=== PATIENT | female | born 1930 | race Caucasian/White ===

== ENCOUNTER 2017-03-27 09:34 | Inpatient (IN) | payer BC, MEDICARE ==
[~2017-03-27] VITALS: Ht 162.6 cm; Wt 77.0 kg
[~2017-03-27 09:34] MED LIST: ATOR10TA23; HYDR5TAB; LEVO25TA50; METOPROLOL 5 MG INJ ONE
[2017-03-27 09:41] VITALS: Ht 162.6 cm; Wt 77.0 kg
[2017-03-27] MEDS ORDERED: SOD CHLORIDE 0.9% 500 ML IV STA (09:41)
[2017-03-27] MEDS ORDERED: ONDANSETRON 4 MG INJ IV STA ×2 (09:41→11:58)
--- NOTE | 2017-03-27 09:44 | ERD ---
ER Documentation Chief Complaint Chief Complaint woke up with nausea/vomiting , runny nose today HPI This is an 86-year-old female with a past medical history of hypertension, hyperlipidemia, hypothyroidism who woke up this morning with nausea and a few episodes of nonbilious nonbloody vomiting. The patient also reports feeling fatigued with myalgias, congestion and a runny nose. The patient states that she woke up this morning feeling okay. She took her metoprolol without drinking any water, after which her symptoms started. She is not sure if it could be related to the metoprolol or not, but this is what she associates it with. The patient does feel a little dehydrated as well. The patient has had no headache or vision changes. The patient does not endorse neck or back pain. The patient denies lightheadedness or dizziness. The patient has had no chest pain or shortness of breath or trouble breathing. The patient denies nausea or vomiting. The patient denies abdominal pain or changes to bowel movements or urination. The patient has had no focal deficits. The patient has had no weakness or numbness or tingling to the face or extremities. ROS All systems reviewed and are negative except as per history of present illness. Medications Home Meds Reported Medications Losartan-Hydrochlorothiazide (Losartan-HCTZ) 100-25 Mg Tab, 1 TAB PO DAILY, TAB 03/27/17 Atorvastatin Calcium* (Atorvastatin Calcium*) 20 Mg Tablet, 20 MG PO QHS, #30 TAB 03/27/17 Pantoprazole* (Pantoprazole*) 40 Mg Tablet.dr, 40 MG PO AC BREAKFAST, TAB 03/27/17 Levothyroxine Sodium* (Levothyroxine Sodium*) 100 Mcg Tablet, 100 MCG PO BEFORE BREAKFAST, #30 TAB 03/27/17 Hydrocortisone* (Cortef*) 20 Mg Tablet, 20 MG PO QAM, #60 TAB 03/27/17 Metoprolol Tartrate* (Lopressor*) 50 Mg Tab, 50 MG PO BID, #60 TAB 03/27/17 Discontinued Reported Medications Atorvastatin (Lipitor) 10 Mg Tablet 05/10/09 Hydrocortisone* (Cortef*) 5 Mg Tab 05/10/09 Levothyroxine Sodium* (Levoxyl*) 25 Mcg Tablet 05/10/09 Allergies Allergies: Coded Allergies: No Known Allergies (Verified Allergy, Mild, 05/10/09) PMhx/Soc 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) Hx Neurological Disorder: No Hx Respiratory Disorders: No Hx Cardiac Disorders: Yes (Hypertension, hyperlipidemia) Hx Miscellaneous Medical Probl: Yes (GERD, hypothyroidism) Hx Alcohol Use: No Hx Substance Use: No Hx Tobacco Use: No FmHx Family History: No coronary disease, No diabetes Physical Exam Vitals Vital Signs Date Time Temp Pulse Resp B/P Pulse Ox O2 Delivery O2 Flow Rate FiO2 03/27/17 15:30 76 20 104/47 94 Room Air 03/27/17 13:30 78 20 102/55 93 Room Air 03/27/17 11:40 72 20 108/56 95 Room Air 03/27/17 09:41 98.8 78 18 131/71 98 Physical Exam Const: No apparent distress, well-developed, well-nourished Head: Normocephalic, Atraumatic Eyes: Normal Conjunctiva. Extraocular movements intact. Pupils equal, round and reactive to light ENT: Normal External Ears, Nose. Dry mucous membranes. Dentures Neck: Full range of motion. No meningismus. Resp: Clear to auscultation bilaterally, No wheezes, rales or rhonchi Cardio: Regular rate and rhythm. No murmurs, rubs or gallops Abd: Soft, non tender, non distended. Normal bowel sounds Skin: No petechiae or rashes Back: No midline tenderness. No CVA tenderness Ext: No cyanosis, or edema Neur: Awake and alert, oriented 4. Cranial nerves intact. No facial droop. Normal strength, sensation and coordination. Psych: Normal Mood and Affect Result Diagram: 03/27/17 1008 03/27/17 1008 Results 24 hrs Laboratory Tests Test 03/27/17 10:08 03/27/17 15:00 White Blood Count 7.410^3/ul Red Blood Count 4.9910^6/ul Hemoglobin 15.1g/dl Hematocrit 42.4% Mean Corpuscular Volume 85.0fl Mean Corpuscular Hemoglobin 30.3pg Mean Corpuscular Hemoglobin Concent 35.6g/dl Red Cell Distribution Width 12.4% Platelet Count 78934^3/UL Mean Platelet Volume 9.6fl Neutrophils % 62.2% Lymphocytes % 24.9% Monocytes % 9.3% Eosinophils % 2.8% Basophils % 0.4% Nucleated Red Blood Cells % 0.0/100WBC Neutrophils # 4.610^3/ul Lymphocytes # 1.810^3/ul Monocytes # 0.710^3/ul Eosinophils # 0.210^3/ul Basophils # 0.010^3/ul Nucleated Red Blood Cells # 0.010^3/ul Sodium Level 126mmol/L Potassium Level 3.4mmol/L Chloride Level 89mmol/L Carbon Dioxide Level 30mmol/L Anion Gap 10 Blood Urea Nitrogen 18mg/dl Creatinine 0.79mg/dl Glucose Level 107mg/dl Calcium Level 8.8mg/dl Total Bilirubin 0.8mg/dl Direct Bilirubin 0.00mg/dl Indirect Bilirubin 0.8mg/dl Aspartate Amino Transf (AST/SGOT) 31IU/L Alanine Aminotransferase (ALT/SGPT) 42IU/L Alkaline Phosphatase 88IU/L Total Protein 6.7g/dl Albumin 3.7g/dl Globulin 3.00g/dl Albumin/Globulin Ratio 1.23 Lipase 100U/L Prothrombin Time 12.5Sec Prothrombin Time Ratio 1.0 INR International Normalized Ratio 0.93 Activated Partial Thromboplast Time 43.2Sec Magnesium Level 1.5mg/dl Troponin I < 0.012ng/ml B-Type Natriuretic Peptide 2860PG/ML Thyroid Stimulating Hormone (TSH) < 0.015MIU/L Free Thyroxine 1.56ng/dl Current Medications Medications (Trade) Dose Ordered Sig/Adelso Route PRN Reason Start Time Stop Time Status Last Admin Dose Admin Sodium Chloride (NS) 500 ml @ 0 mls/hr Q0M STAT IV 03/27/17 09:41 03/27/17 09:43 DC 03/27/17 10:18 Ondansetron HCl 4 mg 4 mg ONCE STAT IV 03/27/17 09:41 03/27/17 09:43 DC 03/27/17 10:17 Sodium Chloride (NS) 1,000 ml @ 1,000 mls/hr Q1H ONCE IV 03/27/17 12:00 03/27/17 12:59 DC 03/27/17 12:37 Ondansetron HCl (Zofran Inj) 4 mg ONCE STAT IV 03/27/17 11:58 03/27/17 12:00 DC 03/27/17 12:37 Potassium Chloride 40 meq 40 meq ONCE STAT PO 03/27/17 12:00 03/27/17 12:01 DC 03/27/17 12:37 Magnesium Sulfate (Magnesium Sulfate 2 Gm/50 ml) 50 ml @ 25 mls/hr ONCE ONCE IVPB 03/27/17 14:00 03/27/17 15:59 DC 03/27/17 15:08 Ondansetron HCl (Zofran Inj) 4 mg ER BRIDGE PRN IV NAUSEA AND/OR VOMITING 03/27/17 14:30 03/28/17 14:29 Acetaminophen (Tylenol Tab) 650 mg ER BRIDGE PRN PO MILD PAIN/FEVER 03/27/17 14:30 03/28/17 14:29 IV Flush (NS 3 ml) 3 ml PER PROTOCOL IV 03/27/17 14:30 Ondansetron HCl (Zofran Inj) 4 mg Q6H PRN IV NAUSEA AND/OR VOMITING 03/27/17 14:30 Acetaminophen (Tylenol Tab) 650 mg Q6H PRN PO PAIN LEVEL 1-3 OR FEVER 03/27/17 14:30 Acetaminophen/ Hydrocodone Bitart ([place] (5/325)) 1 tab Q6H PRN PO MODERATE PAIN LEVEL 4-6 03/27/17 14:30 Morphine Sulfate (morphine) 2 mg Q4H PRN IV SEVERE PAIN LEVEL 7-10 03/27/17 14:30 Docusate Sodium (Colace) 100 mg Q12H PRN PO CONSTIPATION 03/27/17 14:30 Magnesium Hydroxide (Milk Of Mag) 30 ml DAILY PRN PO CONSTIPATION 03/27/17 14:30 Sodium Biphosphate/ Sodium Phosphate (Fleet Enema) 133 ml DAILY PRN LA CONSTIPATION 03/27/17 14:30 Lorazepam 0.5 mg 0.5 mg Q6H PRN IV ANXIETY 03/27/17 14:30 Sodium Chloride (NS) 1,000 ml @ 100 mls/hr Q10H IV 03/27/17 14:27 Albuterol/ Ipratropium (Duoneb) 3 ml Q4H RESP THERAPY PRN HHN SHORTNESS OF BREATH 03/27/17 14:30 Hydralazine HCl (Apresoline) 10 mg Q6H PRN IV ELEVATED BLOOD PRESSURE 03/27/17 14:30 Clonidine (Catapres) 0.1 mg Q6H PRN PO ELEVATED BLOOD PRESSURE 03/27/17 14:30 Nitroglycerin (Nitroglycerin (Sl Tab) 0.4 Mg) 1 tab Q5M PRN SL ANGINA 03/27/17 14:30 Atorvastatin Calcium (Lipitor) 20 mg QHS PO 03/27/17 21:00 Hydrocortisone (Cortef) 20 mg QAM PO 03/28/17 09:00 Levothyroxine Sodium (Synthroid) 100 mcg BEFORE BREAKFAST PO 03/28/17 07:00 Pantoprazole (Protonix Tab) 40 mg AC BREAKFAST PO 03/28/17 07:00 Procedures/MDM MDM The patient's presentation warrants further investigation. The patient will be evaluated for cardiac, metabolic and infectious etiologies of her symptoms. The patient has no chest pain or shortness of breath. She does endorse some mild lightheadedness with her nausea. This could be presyncopal episodes relating to possible cardiac ischemia or heart failure. However, my suspicion is lower. Infectious etiology is certainly possible. Her symptoms do correlate well with a viral syndrome. LABS The patient's blood work was obtained and reviewed. The patient's CBC shows no leukocytosis and no left shift. The patient is afebrile and does not appear systemically ill. I do not suspect a systemic infection. The patient is not anemic today. The patient's platelet count is unremarkable. The patient's CMP shows hyponatremia at 126, hypokalemia 3.4 and hypochloremia at 89. The patient has unremarkable renal and hepatic function testing. The patient's influenza testing is negative. EKG EKG read by me: Rate/Rhythm: Irregularly irregular rhythm indicating atrial fibrillation at 75 bpm with occasional PACs Intervals: No LA interval, normal QRS duration, prolonged QTC. Friendship: Normal Impression: Atrial fibrillation, prolonged QT IMAGING CXR FINDINGS: The heart and mediastinum are within normal limits. There is a tracheostomy tube in place. There is right lower lobe scarring and pleural thickening and possible right pleural effusion. The lungs are hyperinflated. There is no pneumothorax. IMPRESSION: Right lower lobe scarring and pleural thickening and possible moderate right pleural effusion. Hyperinflated lungs. Electronically viewed and signed by .Jimbo Salas MD, MD on 03/27/2017 11: 51 TREATMENT/DISPOSITION The patient has metabolic deficiencies that could correlate with her symptoms today. She was given IV fluids in the emergency department of normal saline. She is also given oral supplementation of potassium. The patient was given Zofran for nausea. Despite these interventions, she continued to feel uneasy. While she did not test positive for the flu, a viral syndrome is still a possibility. I do not see obvious evidence of an acute coronary syndrome, the patient does have a prolonged QT on the EKG. She was given magnesium in the emergency department for this. This may be further monitored as well, as torsades could cause presyncope as well. The patient is 86 years old, and this places her at a risk of falling. Given her constellation of symptoms, I do not feel that she would be safe for outpatient management. At this time, I feel that the patient requires admission for further evaluation and management. The patient will be admitted to panel in accordance with the patient's insurance. The patient was accepted by Dr. Oliver at 13:45PM on 03/27/2017. Disclaimer: Inadvertent spelling and grammatical errors are likely due to EHR/ dictation software use and do not reflect on the overall quality of patient care. Note that the electronic time recorded on this note does not necessarily reflect the actual time of the patient encounter. Departure Diagnosis: Primary Impression: Nausea and vomiting Vomiting type: unspecified Vomiting Intractability: non-intractable Qualified Code: R11.2 - Non-intractable vomiting with nausea, unspecified vomiting type Additional Impressions: Hyponatremia Prolonged QT interval Hypokalemia Advanced age Condition: MACRINA Roque MD Mar 27, 2017 09:44
--- NOTE | 2017-03-27 10:04 | RADRPT ---
PROCEDURE: Chest x-ray CLINICAL INDICATION: Shortness of breath TECHNIQUE: Chest single view COMPARISON: 05/12/2009 FINDINGS: The heart is normal in size. The pulmonary vessels are normal in caliber. The lungs are clear. Th e costophrenic angles are sharp. The visualized bony thorax is unremarkable. IMPRESSION: No acute cardiopulmonary disease. Stable mild atherosclerotic aortic calcification RPTAT: HH .Mikie Harrison MD, MD Date Time Electronically viewed and signed by .Mikie Harrison MD, on 03/27/2017 10:04 .W/
[2017-03-27 10:23] LABS: BASOPHILS % 0.4 % (0.0-2.0); EOSINOPHILS # 0.2 10^3/ul (0.0-0.5); EOSINOPHILS % 2.8 % (0.0-7.0); HEMATOCRIT 42.4 % (37.0-47.0); HEMOGLOBIN 15.1 g/dl (12.0-16.0); LYMPHOCYTES # 1.8 10^3/ul (0.8-2.9); LYMPHOCYTES % 24.9 % (15.0-51.0); MEAN CORPUSCULAR HEMOGLOBIN 30.3 pg (29.0-33.0); MEAN CORPUSCULAR HGB CONC 35.6 g/dl (32.0-37.0); MEAN PLATELET VOLUME 9.6 fl (7.4-10.4); MONOCYTE # 0.7 10^3/ul (0.3-0.9); MONOCYTES % 9.3 % (0.0-11.0); NEUTROPHIL # 4.6 10^3/ul (1.6-7.5); NEUTROPHILS % 62.2 % (39.0-77.0); PLATELET COUNT 189 10^3/UL (140-415); RED BLOOD COUNT 4.99 10^6/ul (4.20-5.40); RED CELL DISTRIBUTION WIDTH 12.4 % (11.5-14.5); WHITE BLOOD COUNT 7.4 10^3/ul (4.8-10.8)
[2017-03-27 10:41] LABS: ALBUMIN 3.7 g/dl (3.3-4.9); ALBUMIN/GLOBULIN RATIO 1.23; BILIRUBIN,INDIRECT 0.8 mg/dl (0-1.1); BILIRUBIN,TOTAL 0.8 mg/dl (0.2-1.3); CALCIUM 8.8 mg/dl (8.4-10.2); CREATININE 0.79 mg/dl (0.44-1.00); POTASSIUM 3.4 mmol/L (3.5-5.1); TOTAL PROTEIN 6.7 g/dl (6.1-8.1)
[2017-03-27] MEDS ORDERED: METO-429 PO (10:50)
[2017-03-27] MEDS ORDERED: LEVO100T87 PO (10:51)
[2017-03-27] MEDS ORDERED: HYDR20TA PO (10:51)
[2017-03-27] MEDS ORDERED: ATOR20TA38 PO (10:52)
[2017-03-27] MEDS ORDERED: PANT40TA4 PO (10:52)
[2017-03-27] MEDS ORDERED: LOSA1TAB25 PO (10:53)
[2017-03-27] MEDS ORDERED: POTASSIUM CHLORIDE (SR) 20 MEQ TAB PO STA (12:00)
[2017-03-27] MEDS ORDERED: SOD CHLORIDE 0.9% 1,000 ML IV ONE (12:00)
[2017-03-27] MEDS ORDERED: MAGNESIUM SULFATE 2 GM/50 ML 50 ML IVPB ONE (14:00)
[2017-03-27] MEDS ORDERED: NA PHOSPHATE/BIPHOS 133 ML ENEMA PR PRN (14:30)
[2017-03-27] MEDS ORDERED: hydrALAzine 20 MG INJ IV PRN (14:30)
[2017-03-27] MEDS ORDERED: ACETAMINOPHEN 325 MG TAB PO PRN ×2 (14:30)
[2017-03-27] MEDS ORDERED: MAGNESIUM HYDROXIDE 30ML CUP PO PRN (14:30)
[2017-03-27] MEDS ORDERED: DOCUSATE SODIUM 100 MG CAP PO PRN (14:30)
[2017-03-27] MEDS ORDERED: morphine 2 MG INJ IV PRN (14:30)
[2017-03-27] MEDS ORDERED: LORAZEPAM 2 MG INJ IV PRN (14:30)
[2017-03-27] MEDS ORDERED: NITROGLYCERIN (SL) 0.4 MG TAB SL PRN (14:30)
[2017-03-27] MEDS ORDERED: ALBUTEROL/IPRATROPIUM (NEB) 3 ML AMP HHN PRN (14:30)
[2017-03-27] MEDS ORDERED: ONDANSETRON 4 MG INJ IV PRN ×2 (14:30)
[2017-03-27] MEDS ORDERED: HYDROCODONE/APAP (5/325) TAB PO PRN (14:30)
[2017-03-27] MEDS ORDERED: NACL 0.9% 3 ML SYG IV SCH (14:30)
[2017-03-27 15:32] LABS: INR 0.93; PROTIME 12.5 Sec (11.9-14.9)
[2017-03-27 15:33] LABS: PARTIAL THROMBOPLASTIN TIME 43.2 Sec (25.0-35.0)
[2017-03-27 15:44] LABS: B-TYPE NATRIURETIC PEPTIDE 2860 PG/ML (0-450)
[2017-03-27 15:46] LABS: TROPONIN-I < 0.012 ng/ml (0.00-0.12)
[2017-03-27 16:06] LABS: THYROID STIMULATING HORMONE < 0.015 MIU/L (0.465-4.680)
[2017-03-27 17:24] VITALS: TEMP 98.3
[2017-03-27] MEDS: SOD CHLORIDE 0.9% 1,000 ML IV SCH ×2 (18:28→23:54)
[2017-03-27 18:31] VITALS: BP 141/60; PULSE 87; RESP 18
--- NOTE | 2017-03-27 19:19 | HP ---
DATE OF ADMISSION: 03/27/2017 CHIEF COMPLAINT: Weakness, nausea, vomiting. HISTORY OF PRESENT ILLNESS: An 86-year-old female, past medical history based on records of prior kidney injury, high cholesterol, hepatitis A, panhypopituitarism who apparently woke up this morning, having some nausea symptoms. She also vomited 2- 3 times, non bloody and non bili. She has been feeling weak overall with some myalgias and also a runny nose. No chest pain or shortness of breath. No fevers or chills. No lightheadedness or dizziness or loss of consciousness. No abdominal pain. No dysuria. No diarrhea or constipation. When she came into the ER today she had some labs performed and her sodium was found to be low at 126 and given overall weakness symptoms, it felt like she needed to be admitted for some fluids. PAST MEDICAL HISTORY: As stated above and hypertension. ALLERGIES: NO KNOWN DRUG ALLERGIES. MEDICATIONS: Include: 1. Atorvastatin 20 mg at bedtime. 2. Losartan/hydrochlorothiazide 100/25 one tab daily. 3. Lopressor 50 mg b.i.d. 4. Protonix 40 mg every morning. 5. Cortef 20 mg q.a.m. 6. Levothyroxine 100 mcg every morning. PAST SURGICAL HISTORY: She had a pituitary tumor removed in the past. FAMILY HISTORY: Noncontributory. SOCIAL HISTORY: Negative for smoking, drinking, or IV drug abuse. PHYSICAL EXAMINATION: VITAL SIGNS: Today, T-max 98.8, pulse 78, respirations 18, blood pressure 131/71, saturating at 98 percent room air. GENERAL: Patient lying in bed, somewhat cooperative with the exam but otherwise answering questions. No acute distress. HEENT: Pupils equal, round, reactive to light. There is some dry mucous membranes noted. NECK: Supple. No thyromegaly. LUNGS: Clear to auscultation bilaterally. CARDIOVASCULAR: S1, S2 heard. No rubs, gallops. ABDOMEN: Soft, nontender, nondistended. Normal bowel sounds. No rebound or guarding. MUSCULOSKELETAL: No lower extremity edema bilaterally. NEUROLOGIC: No focal deficits. DIAGNOSTIC DATA: The CBC is normal. Sodium was 126, potassium 3.4, chloride 89, CO2 of 30, BUN 18, creatinine 0.79, glucose 107. The LFTs are normal. Lipase is normal. The chest x-ray was performed, shows no acute cardiopulmonary disease. IMPRESSION: An 86-year-old female, comes in with nausea, vomiting symptoms, hyponatremia, and weakness. 1. Weakness, again likely secondary to a combination of dehydration and hyponatremia. We will admit the patient. Check TSH, A1c, lipid panel. Get physical therapy, occupational therapy, and speech therapy consults. Put her on IV fluids as well. Monitor BMP in the morning. 2. Nausea, vomiting, again likely secondary to number 1. We will also check a UA to rule out any urine infection. Will put her on antiemetics and intravenous fluids. 3. Prior history of hepatitis A. Continue to monitor her for now. 4. Panhypopituitarism. Continue Cortef for now. 5. Hypertension. Blood pressure stable. We will hold her blood pressure medicines now given that she is weak and slowly introduce those as she gets more hydrated. 6. High cholesterol. Check lipid panel. Continue statin. 7. Gastrointestinal prophylaxis. Proton pump inhibitor. 8. Deep venous thrombosis prophylaxis. Sequential compression devices. Dictated By: David Oliver MD /yomi/aminata /Document#: [id number]
[2017-03-27 20:00] VITALS: PULSE 83
--- NOTE | 2017-03-27 20:25 | RADRPT ---
PROCEDURE: XR Abdomen. CLINICAL INDICATION: Nausea and vomiting. TECHNIQUE: Single AP view of the abdomen. COMPARISON: None FINDINGS: A moderate amount of stool is noted in the rectum and right colon. There is also mild distension of colon. Minimally distended loops of small bowel are also noted in the upper abdomen. IMPRESSION: Nonobstructive bowel gas pattern. RPTAT: [facility] .Michael Jewell MD, MD Date Time Electronically viewed and signed by .Michael Jewell MD, on 03/27/2017 20:24 .C/
[2017-03-27] MEDS: ATORVASTATIN 20 MG TAB PO SCH (20:33)
[2017-03-28] VITALS (14 sets, daily range): BP systolic 89–125; BP diastolic 41–83; PULSE 0–180; RESP 20–21
[2017-03-28] MEDS: LEVOTHYROXINE 100 MCG TAB PO SCH (06:16)
[2017-03-28] MEDS: PANTOPRAZOLE (EC) 40 MG TAB PO SCH (06:16)
[2017-03-28] MEDS: SOD CHLORIDE 0.9% 1,000 ML IV SCH (08:20)
[2017-03-28] MEDS: HYDROCORTISONE 5 MG TAB PO SCH (08:20)
[2017-03-28 08:58] LABS: BASOPHIL # 0.1 10^3/ul (0.0-0.1); BASOPHILS % 0.3 % (0.0-2.0); EOSINOPHILS # 0.2 10^3/ul (0.0-0.5); EOSINOPHILS % 1.3 % (0.0-7.0); HEMATOCRIT 41.3 % (37.0-47.0); HEMOGLOBIN 13.9 g/dl (12.0-16.0); LYMPHOCYTES # 1.8 10^3/ul (0.8-2.9); LYMPHOCYTES % 11.3 % (15.0-51.0); MEAN CORPUSCULAR HEMOGLOBIN 29.9 pg (29.0-33.0); MEAN CORPUSCULAR HGB CONC 33.7 g/dl (32.0-37.0); MEAN CORPUSCULAR VOLUME 88.8 fl (82.0-101.0); MEAN PLATELET VOLUME 9.9 fl (7.4-10.4); MONOCYTE # 1.3 10^3/ul (0.3-0.9); MONOCYTES % 8.5 % (0.0-11.0); NEUTROPHIL # 12.4 10^3/ul (1.6-7.5); NEUTROPHILS % 78.2 % (39.0-77.0); PLATELET COUNT 181 10^3/UL (140-415); RED BLOOD COUNT 4.65 10^6/ul (4.20-5.40); RED CELL DISTRIBUTION WIDTH 12.9 % (11.5-14.5); WHITE BLOOD COUNT 15.8 10^3/ul (4.8-10.8)
[2017-03-28] MEDS ORDERED: HYDROCORTISONE 20 MG TAB PO SCH (09:00)
[2017-03-28 09:19] LABS: CHOLESTEROL 145 mg/dl (100-200); HDL CHOLESTEROL 70 mg/dl (33-92); TRIGLYCERIDES 111 mg/dl (0-149)
[2017-03-28 09:20] LABS: CREATININE 0.94 mg/dl (0.44-1.00); MAGNESIUM 2.4 mg/dl (1.7-2.5); PHOSPHORUS 2.6 mg/dl (2.5-4.9); POTASSIUM 3.4 mmol/L (3.5-5.1)
[2017-03-28] MEDS ORDERED: DEXTROSE 50% 50 ML SYRINGE ONE (09:28)
[2017-03-28] MEDS ORDERED: DILTIAZEM-D5W 125MG/125ML DRIP 125 ML ONE (09:43)
[2017-03-28 09:46] LABS: Allen Test ACCEPTAB; Arterial Base Excess -6.2 mmol/L (-3.0-3); Arterial COHb 0 % (0.0-3.0); Arterial Fraction of Oxyhgb 96.2 % (93.0-99.0); Arterial HCO3 18.3 mmol/L (22.0-26.0); Arterial MetHb 0.3 % (0.0-1.5); Arterial Total Hemglobin 13.2 g/dl (12.0-18.0); MODE NASAL CANNULA
[2017-03-28 10:00] LABS: THYROID STIMULATING HORMONE < 0.015 MIU/L (0.465-4.680)
[2017-03-28] MEDS ORDERED: METOPROLOL 50 MG TAB PO SCH (10:00)
[2017-03-28] MEDS ORDERED: DILTIAZEM-D5W 125MG/125ML DRIP 125 ML IV SCH (10:00)
[2017-03-28] MEDS ORDERED: TRIMETHOBENZAMIDE 100 MG/ML VIAL IM PRN (10:00)
[2017-03-28] MEDS ORDERED: HYDROCHLOROTHIAZIDE 25 MG TAB PO SCH (11:00)
[2017-03-28] MEDS ORDERED: ONDANSETRON INJ 8 MG in SOD CHLORIDE 0.9% 50 ML IV PRN (11:00)
[2017-03-28] MEDS ORDERED: LOSARTAN 50 MG TAB PO SCH (11:00)
[2017-03-28] MEDS ORDERED: POTASSIUM CHLORIDE 250 ML IVPB ONE (12:00)
[2017-03-28] MEDS: DEXTROSE 5%-0.45% NACL 1,000 ML IV SCH ×2 (12:45→23:20)
--- NOTE | 2017-03-28 13:18 | RADRPT ---
Vent Rate: 118 bpm RR Interval: 0 msec WA Interval: 0 msec QRS Duration: 92 msec QT Interval: 366 msec QTC Interval: 513 msec P-R-T [place]: 0 - 78 - -72 degrees Atrial fibrillation with rapid ventricular response Marked ST abnormality, possible inferior subendocardial injury Abnormal ECG Electronically Signed By: Van Hall [id number]
[2017-03-28] MEDS ORDERED: ONDANSETRON 4 MG INJ IV PRN ×2 (14:30)
[2017-03-28] MEDS: PIPER-TAZO 3.375 GM IV (PMX) 50 ML IVPB SCH ×3 (14:34→23:22)
[2017-03-28 14:39] LABS: ADD UMIC YES; UR ASCORBIC ACID NEGATIVE (NEGATIVE); UR BACTERIA FEW /HPF (NONE SEEN); UR BILIRUBIN (Dip) NEGATIVE (NEGATIVE); UR BLOOD (Dip) 3+ mg/dL (NEGATIVE); UR CLARITY CLEAR (CLEAR); UR COLOR YELLOW (YELLOW); UR GLUCOSE (Dip) 2+ mg/dL (NEGATIVE); UR KETONES (Dip) 1+ mg/dL (NEGATIVE); UR LEUKOCYTE ESTERASE (Dip) NEGATIVE Leu/ul (NEGATIVE); UR MUCUS FEW /HPF (NONE SEEN); UR NITRITE (Dip) NEGATIVE (NEGATIVE); UR RBC 18 /HPF (0-5); UR SPECIFIC GRAVITY (Dip) 1.015 (1.003-1.030); UR TOTAL PROTEIN (Dip) NEGATIVE (NEGATIVE); UR UROBILINOGEN (Dip) NEGATIVE (NEGATIVE)
[2017-03-28] MEDS ORDERED: AMIODARONE 150MG/D5W BOLUS 100 ML IV ONE (16:00)
[2017-03-28] MEDS ORDERED: AMIODARONE 900 MG in DEXTROSE 5% 482 ML IV SCH (16:00)
--- NOTE | 2017-03-28 16:10 | RADRPT ---
Echocardiogram Report Patient Name: PATRICK FIERRO Gender: Female Date: 1930 Study Date: 28-Mar-2017 Toll Booth Operator: Saul Garcia [facility] Location: 5551-A Ref. Physician: BRITTNEY GIBSON Quality: Adequate Procedures: Transthoracic echocardiogram with complete 2D, M-Mode, and doppler examination. Indications: Weak. 2D/M Mode Doppler Measurement Value Normal Ranges Measurement Value Normal Ranges LVIDd 2D 3.1 3.5 - 5.6 cm AV Mean Chris 2.0 m/sec LVIDs 2D 1.9 2.1 - 4.1 cm AV Mean PG 19.0 mmHg FS 2D 38.8 % AV Peak Chris 2.8 m/sec LVPWd 2D 1.6 0.6 - 1.1 cm AV Peak PG 31.0 mmHg IVSd 2D 1.5 0.6 - 1.1 cm AV VTI 55.8 cm IVS/LVPW 2D 1.0 LVOT Peak Chris 2.5 m/sec AoR Diam 2D 2.8 2.0 - 3.7 cm LVOT Peak PG 24.0 mmHg LA/Ao 2D 1 0 - 1 MV E Peak Chris 1.3 m/sec EDV 2D 29.5 cm3 MV A Peak Chris 1.2 m/sec ESV 2D 6.8 cm3 MV E/A 1.1 LA Dimen 2D 3.8 2.3 - 4.0 cm MV Decel Time 222 msec MV E/A 1.1 TR Peak Chris 3.2 m/sec TR Peak PG 40.0 mmHg RVSP 43.0 mmHg Findings Left Ventricle: Normal left ventricular systolic function. Normal left ventricular cavity size. Moderate concentric left ventricular hypertrophy. Ejection fraction is visually estimated at 65 %. Tissue Doppler/Mitral Doppler indices are indeterminate in this study due to the presence of atrial fibrillation. Right Ventricle: Normal right ventricular size. Normal right ventricular systolic function. Left Atrium: The left atrium is normal in size. Right Atrium: The right atrium is normal in size. Mitral Valve: Mild mitral leaflet calcification. Moderate mitral annular calcification. Trace mitral regurgitation. Aortic Valve: Mild aortic stenosis. Aortic valve Max velocity 2.79 m/sec. Max PG 31.00 mmHg. Mean PG 19.00 mmHg. No aortic regurgitation. Tricuspid Valve: Normal appearance of the tricuspid valve. Estimated peak PA systolic pressure 43 mmHg. There is mild tricuspid regurgitation. Pulmonic Valve: Pulmonic valve not well visualized. There is trace pulmonic regurgitation. Pericardium: Normal pericardium with no significant pericardial effusion. Aorta: Normal aortic root. IVC: Normal size and normal respiratory collapse consistent with normal right atrial pressure. Conclusions 1.The left ventricle is normal in size and systolic function. 2.Estimated left ventricular ejection fraction of 65-70%. 3.Moderate concentric left ventricular hypertrophy. 4.Borderline to mild aortic stenosis. Electronically Signed By: Yayo Caceres 28-Mar-2017 16:09:57 -0800 Patient Name: PATRICK FIERRO Study Date: 28-Mar-2017 [id number]
--- NOTE | 2017-03-28 17:16 | CONS ---
Date/Time of Note Date/Time of Note DATE: 03/28/17 TIME: 17:01 Assessment/Plan Assessment/Plan Chief Complaint/Hosp Course Assessment: Paroxysmal atrial fibrillation with rapid ventricular response - CHADS2 score of 2 (age>75, hypertension) Nausea and vomiting Hypokalemia and hypomagnesemia Hyponatremia Hypertension Dyslipidemia Panhypopituitarism, secondary to pituitary adenoma removal - on thyroid replacement with normal free T4 of 1.56, also on hydrocortisone Leukocytosis and lactic acidosis - rule out infection Recommendations: -continue amiodarone drip -replace electrolytes to keep K>4 and Mg>2 -intravenous fluid hydration -start Eliquis 5mg BID for atrial fibrillation thromboembolic prophylaxis -continue atorvastatin 20mg daily -hold antihypertensive medications for now, resume as needed (but would discontinue hydrochlorothiazide with electrolyte abnormalities) Problems: Consultation Date/Type/Reason Admit Date/Time Mar 27, 2017 at 14:06 Type of Consultation: Cardiology Hx of Present Illness The patient is an 86 year-old female who presented with nausea and vomiting. She was noted to have multiple electrolyte abnormalities including low sodium of 126, potassium of 3.4, and magnesium of 1.5. During the hospitalization, she went into atrial fibrillation with a rapid ventricular response. She was placed on a diltiazem drip, and went in and out of atrial fibrillation with post-conversion pauses of up to 5.8 seconds. The diltiazem drip has been discontinued and the patient is now on an amiodarone drip. She is currently lethargic and not cooperative with providing any additional history. Unable to obtain review of systems due to patient's mental status. Past Medical History Hypertension Dyslipidemia Panhypopituitarism Incomplete data Past Surgical History Pituitary adenoma removal Incomplete data Family History Significant Family History: no pertinent family hx Social History Smoking Status: Never smoker Exam/Review of Systems Vital Signs Vitals Vital Signs Date Time Temp Pulse Resp B/P Pulse Ox O2 Delivery O2 Flow Rate FiO2 03/28/17 16:10 121 03/28/17 15:54 98.2 20 121/83 98 03/27/17 18:31 Room Air Intake and Output 03/27/17 03/27/17 03/28/17 15:00 23:00 07:00 Intake Total 1200 ml Output Total 600 ml Balance 600 ml Exam Constitutional: No distress Psych: nl mood/affect, no complaints Head: atraumatic, normocephalic Eyes: nl conjunctiva, nl lids ENMT: nl external ears & nose, nl nasal mucosa & septum Neck: non-tender, supple, No jvd Respiratory: clear to auscultation, normal air movement Cardiovascular: irregular rhythm Gastrointestinal: non-tender, soft Musculoskeletal: nl extremities to inspection Extremities: No clubbing, No cyanosis, No edema Neurological: No nl mental status, No nl speech Results Result Diagram: 03/28/1714 03/28/1714 Results 24 hrs Laboratory Tests Test 03/28/17 07:14 03/28/17 09:26 03/28/17 09:37 03/28/17 09:47 White Blood Count 15.8 #H Red Blood Count 4.65 Hemoglobin 13.9 Hematocrit 41.3 Mean Corpuscular Volume 88.8 Mean Corpuscular Hemoglobin 29.9 Mean Corpuscular Hemoglobin Concent 33.7 Red Cell Distribution Width 12.9 Platelet Count 181 Mean Platelet Volume 9.9 Neutrophils % 78.2 H Lymphocytes % 11.3 L Monocytes % 8.5 Eosinophils % 1.3 Basophils % 0.3 Nucleated Red Blood Cells % 0.0 Neutrophils # 12.4 H Lymphocytes # 1.8 Monocytes # 1.3 H Eosinophils # 0.2 Basophils # 0.1 Nucleated Red Blood Cells # 0.0 Sodium Level 130 L Potassium Level 3.4 L Chloride Level 98 Carbon Dioxide Level 22 Anion Gap 13 Blood Urea Nitrogen 15 Creatinine 0.94 Glucose Level 50 #*L Hemoglobin A1c 5.7 Calcium Level 8.0 L Phosphorus Level 2.6 Magnesium Level 2.4 Triglycerides Level 111 Cholesterol Level 145 LDL Cholesterol, Calculated 53 HDL Cholesterol 70 Cholesterol/HDL Ratio 2.0 Thyroid Stimulating Hormone (TSH) < 0.015 L Bedside Glucose 57 L 93 119 Blood Gas Specimen Source Blood arterial Arterial Blood Date Drawn 03/28/2017 9:35:56 AM Arterial Blood pH (Temp corrected) 7.355 Arterial Blood pCO2 (Temp correct) 33.6 L Arterial Blood pO2 (Temp corrected) 88.1 Arterial Blood HCO3 18.3 L Arterial Blood Base Excess -6.2 L Arterial Blood Oxygen Saturation 96.5 Hunter Test ACCEPTAB Arterial Blood Gas Puncture Site Right Radial Arterial Blood Carboxyhemoglobin 0 Arterial Blood Methemoglobin 0.3 Blood Gas A-a O2 Differential 108.0 H Oxyhemoglobin Percent 96.2 Total Hemoglobin 13.2 Blood Gas Temperature 37.0 Blood Gas Modality NASAL CANNULA FiO2 33.0 Blood Gas Notified Whom JLD Blood Gas Notified Time 03/28/2017 9:46:24 AM Test 03/28/17 10:08 03/28/17 12:52 03/28/17 14:10 Lactic Acid Level 3.1 *H 1.7 Troponin I 0.035 Urine Color YELLOW Urine Clarity CLEAR Urine pH 5.0 Urine Specific [place] 1.015 Urine Ketones 1+ H Urine Nitrite NEGATIVE Urine Bilirubin NEGATIVE Urine Urobilinogen NEGATIVE Urine Leukocyte Esterase NEGATIVE Urine Microscopic RBC 18 H Urine Microscopic WBC 2 Urine Bacteria FEW A Urine Mucus FEW A Urine Hemoglobin 3+ H Urine Glucose 2+ H Urine Total Protein NEGATIVE Medications Medications Current Medications Acetaminophen (Tylenol Tab) 650 mg Q6H PRN PO PAIN LEVEL 1-3 OR FEVER; Start 03/27/17 at 14:30 Acetaminophen/ Hydrocodone Bitart ([place] (5/325)) 1 tab Q6H PRN PO MODERATE PAIN LEVEL 4-6; Start 03/27/17 at 14:30 Morphine Sulfate (morphine) 2 mg Q4H PRN IV SEVERE PAIN LEVEL 7-10; Start 03/27 at 14:30 Docusate Sodium (Colace) 100 mg Q12H PRN PO CONSTIPATION; Start 03/27/17 at 14: 30 Magnesium Hydroxide (Milk Of Mag) 30 ml DAILY PRN PO CONSTIPATION; Start at 14:30 Sodium Biphosphate/ Sodium Phosphate (Fleet Enema) 133 ml DAILY PRN [place] CONSTIPATION; Start 03/27/17 at 14:30 Lorazepam (Ativan) 0.5 mg Q6H PRN IV ANXIETY; Start 03/27/17 at 14:30 Hydralazine HCl (Apresoline) 10 mg Q6H PRN IV ELEVATED BLOOD PRESSURE; Start 03/27/17 at 14:30 Clonidine (Catapres) 0.1 mg Q6H PRN PO ELEVATED BLOOD PRESSURE; Start 03/27/17 at 14:30 Nitroglycerin (Nitroglycerin (Sl Tab) 0.4 Mg) 1 tab Q5M PRN SL ANGINA; Start 03/27/17 at 14:30 Atorvastatin Calcium (Lipitor) 20 mg QHS PO ; Start 03/27/17 at 21:00 Hydrocortisone (Cortef) 20 mg QAM PO Last administered on 03/28/17 08:20; Admin Dose 20 MG; Start 03/28/17 at 09:00 Trimethobenzamide HCl 200 mg 200 mg Q6H PRN IM NAUSEA AND/OR VOMITING; Start 03/28/17 at 10:00 Dextrose/Sodium Chloride 1,000 ml @ 75 mls/hr [id number] IV Last administered on 03/28/17 12:45; Admin Dose 75 MLS/HR; Start 03/28/17 at 10:00 Ondansetron HCl 8 mg/Sodium Chloride 54 ml @ 216 mls/hr Q6H PRN IV NAUSEA AND/ OR VOMITING; Start 03/28/17 at 11:00 Piperacillin Sod/ Tazobactam Sod 50 ml @ 100 mls/hr Q6 IVPB Last administered on 03/28/17 14:34; Admin Dose 100 MLS/HR; Start 03/28/17 at 12:00 Amiodarone HCl/ Dextrose (Cordarone Iv/ D5W) 500 ml @ 0 mls/hr Q0M IV Last administered on 03/28/17 16:36; Admin Dose 33.4 MLS/HR; Start 03/28/17 at 16:00 CHRISTIANNE BENAVIDES MD Mar 28, 2017 17:13
[2017-03-28] MEDS: APIXABAN 5 MG TABLET PO SCH (20:25)
[2017-03-28] MEDS: ATORVASTATIN 20 MG TAB PO SCH (20:25)
[2017-03-28] MEDS: METOPROLOL 25 MG TAB PO SCH (20:27)
[2017-03-28 21:29] LABS: POTASSIUM 3.9 mmol/L (3.5-5.1)
--- NOTE | 2017-03-28 22:27 | PN ---
DATE: 03/28/2017 RAPID RESPONSE NOTE CRITICAL NOTE SUBJECTIVE: Rapid response was called today because the patient was lethargic and had increased heart rate, irregular heart rate in the 140-150 range, partially responded to IV metoprolol, now started on Cardizem drip, stat labs are pending. Otherwise, no acute events overnight. She is complaining of some back pain but is alert and answering questions. OBJECTIVE: VITAL SIGNS: Again, heart rate 140s to 150s irregular, rest of the vital signs are stable including blood pressure, stable. PHYSICAL EXAMINATION: GENERAL: Patient lying in bed, slightly lethargic, but answering questions when prompted. Complaining of some back pain. Denies palpitations. HEENT: Pupils equal, round, reactive to light. Extraocular muscles intact. NECK: Supple. No thyromegaly. LUNGS: Distant breath sounds bilaterally. HEART: Irregularly irregular heart rate. Tachycardic. ABDOMEN: Soft, nontender, nondistended. Normal bowel sounds. No rebound or guarding. MUSCULOSKELETAL: No lower extremity edema bilaterally. NEUROLOGIC: No focal deficits. LABORATORY AND DIAGNOSTIC DATA: WBC 15.8, the rest of the CBC is normal. Sodium 130, potassium 3.4, chloride 98, CO2 is 22, BUN 15, creatinine 0.94, glucose of 50. ABG shows pH of 7.35, pCO2 of 33.6, PaO2 of 88, bicarb of 18.3. ASSESSMENT AND PLAN: An 86-year-old female, presenting with nausea, vomiting, hypernatremia, and now atrial fibrillation with rapid ventricular response likely supraventricular tachycardia. 1. Rapid heart rate. Again, we will continue patient on Cardizem drip. We will get a cardiology consult. If not already ordered, we will get 2D echocardiogram as well. 2. Weakness and nausea, vomiting, unclear source. We will increase antiemetics to 8 mg of Zofran q.6 hours p.r.n. Add Tigan as well. Follow up culture results. Of note, patient had a KUB that shows nonobstructive bowel gas pattern. 3. Prior history of hepatitis A. Continue to monitor for now. 4. Panhypopituitarism. For now continue steroids. 5. History of hypertension. Blood pressure stable. Continue to monitor for now. We will slowly reintroduce her home blood pressure medicines unless differently indicated by Cardiology team. 6. High cholesterol. Follow up lipid panel. Continue statin. 7. Gastrointestinal prophylaxis. Proton pump inhibitor. 8. Deep venous thrombosis prophylaxis. Sequential compression devices. Dictated By: David Oliver MD /yomi/aminata /Document#: [id number]
[2017-03-29] VITALS (17 sets, daily range): BP systolic 90–113; BP diastolic 45–61; PULSE 34–158; RESP 18–22
[2017-03-29] MEDS: LEVOTHYROXINE 100 MCG TAB PO SCH (06:38)
[2017-03-29] MEDS: PIPER-TAZO 3.375 GM IV (PMX) 50 ML IVPB SCH ×4 (06:38→23:50)
[2017-03-29] MEDS: PANTOPRAZOLE (EC) 40 MG TAB PO SCH (06:38)
[2017-03-29] MEDS: METOPROLOL 25 MG TAB PO SCH (08:26)
[2017-03-29] MEDS: HYDROCORTISONE 5 MG TAB PO SCH (08:26)
[2017-03-29] MEDS: APIXABAN 5 MG TABLET PO SCH ×2 (08:26→21:15)
[2017-03-29 08:44] LABS: BASOPHILS % 0.2 % (0.0-2.0); EOSINOPHILS # 0.3 10^3/ul (0.0-0.5); EOSINOPHILS % 2.6 % (0.0-7.0); HEMATOCRIT 36.9 % (37.0-47.0); HEMOGLOBIN 12.9 g/dl (12.0-16.0); LYMPHOCYTES # 0.9 10^3/ul (0.8-2.9); MEAN CORPUSCULAR HEMOGLOBIN 30.4 pg (29.0-33.0); MEAN CORPUSCULAR VOLUME 86.8 fl (82.0-101.0); MEAN PLATELET VOLUME 9.7 fl (7.4-10.4); MONOCYTES % 9.1 % (0.0-11.0); NEUTROPHIL # 9.1 10^3/ul (1.6-7.5); NEUTROPHILS % 79.7 % (39.0-77.0); PLATELET COUNT 162 10^3/UL (140-415); RED BLOOD COUNT 4.25 10^6/ul (4.20-5.40); WHITE BLOOD COUNT 11.4 10^3/ul (4.8-10.8)
[2017-03-29 09:05] LABS: CALCIUM 7.7 mg/dl (8.4-10.2); CREATININE 0.91 mg/dl (0.44-1.00); POTASSIUM 3.6 mmol/L (3.5-5.1)
[2017-03-29] MEDS ORDERED: VITAMIN A & D 5 GM OINT PACKET TOP ONE (09:09)
[2017-03-29] MEDS: DEXTROSE 5%-0.45% NACL 1,000 ML IV SCH (11:42)
--- NOTE | 2017-03-29 13:44 | PN ---
Date/Time of Note Date/Time of Note DATE: 03/29/17 TIME: 13:43 Assessment/Plan VTE Prophylaxis VTE Prophylaxis Intervention: SCD's Lines/Catheters IV C[facility]ter Type [facility]from [facility] Peripheral IV Urinary Cath still in place: No Assessment/Plan Chief Complaint/Hosp Course SUBJECTIVE: Pt seen by CV team yesterday, a bit more alert, HR more stable now. Off amiodarone IV drip since 2 AM today. OBJECTIVE: VITAL SIGNS: (see below) PHYSICAL EXAMINATION: GENERAL: Patient lying in bed, slightly lethargic, but answering questions when prompted. Complaining of some back pain. Denies palpitations. HEENT: Pupils equal, round, reactive to light. Extraocular muscles intact. NECK: Supple. No thyromegaly. LUNGS: Distant breath sounds bilaterally. HEART: Irregularly irregular heart rate. Tachycardic. ABDOMEN: Soft, nontender, nondistended. Normal bowel sounds. No rebound or guarding. MUSCULOSKELETAL: No lower extremity edema bilaterally. NEUROLOGIC: No focal deficits. ASSESSMENT AND PLAN: 86-year-old female, presenting with nausea, vomiting, hypernatremia, with tachyarrythmia, resolving now 1. Rapid heart rate - improved. - monitor, f/u cardiology consult rec's. --intravenous fluid hydration -started on Eliquis 5mg BID for atrial fibrillation thromboembolic prophylaxis -continue atorvastatin 20mg daily 2. Weakness and nausea, vomiting, unclear source - UA essentially non- diagnostic. Of note, patient had a KUB that shows nonobstructive bowel gas pattern. - coninue antiemetics 8 mg of Zofran q.6 hours p.r.n - continue Tigan prn as well. - Follow up final urine culture results. 3. Prior history of hepatitis A - Continue to monitor for now. 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 5. History of hypertension. Blood pressure stable. Continue to monitor for now, bp meds per CV rec's 6. High cholesterol. Follow up lipid panel. Continue statin. 7. Gastrointestinal prophylaxis. Proton pump inhibitor. 8. Deep venous thrombosis prophylaxis. Sequential compression devices. Problems: Exam/Review of Systems Vital Signs Vitals Vital Signs Date Time Temp Pulse Resp B/P Pulse Ox O2 Delivery O2 Flow Rate FiO2 03/29/17 12:42 147 03/29/17 12:02 98.6 20 108/52 96 03/29/17 08:15 Nasal Cannula 2.0 Intake and Output 03/28/17 03/28/17 03/29/17 14:59 22:59 06:59 Intake Total 833.4 ml 1100 ml Balance 833.4 ml 1100 ml Results Result Diagram: 03/29/17 0748 03/29/17 0748 Results 24 hrs Laboratory Tests Test 03/28/17 14:10 03/28/17 18:01 03/28/17 20:40 03/29/17 00:49 Urine Color YELLOW Urine Clarity CLEAR Urine pH 5.0 Urine Specific [place] 1.015 Urine Ketones 1+ H Urine Nitrite NEGATIVE Urine Bilirubin NEGATIVE Urine Urobilinogen NEGATIVE Urine Leukocyte Esterase NEGATIVE Urine Microscopic RBC 18 H Urine Microscopic WBC 2 Urine Bacteria FEW A Urine Mucus FEW A Urine Hemoglobin 3+ H Urine Glucose 2+ H Urine Total Protein NEGATIVE Lactic Acid Level 3.1 *H 1.4 Potassium Level 3.9 Magnesium Level 2.0 Test 03/29/17 07:48 White Blood Count 11.4 #H Red Blood Count 4.25 Hemoglobin 12.9 Hematocrit 36.9 L Mean Corpuscular Volume 86.8 Mean Corpuscular Hemoglobin 30.4 Mean Corpuscular Hemoglobin Concent 35.0 Red Cell Distribution Width 13.0 Platelet Count 162 Mean Platelet Volume 9.7 Neutrophils % 79.7 H Lymphocytes % 8.0 L Monocytes % 9.1 Eosinophils % 2.6 Basophils % 0.2 Nucleated Red Blood Cells % 0.0 Neutrophils # 9.1 H Lymphocytes # 0.9 Monocytes # 1.0 H Eosinophils # 0.3 Basophils # 0.0 Nucleated Red Blood Cells # 0.0 Sodium Level 129 L Potassium Level 3.6 Chloride Level 101 Carbon Dioxide Level 25 Anion Gap 7 L Blood Urea Nitrogen 7 Creatinine 0.91 Glucose Level 101 # Lactic Acid Level 1.2 Calcium Level 7.7 L Medications Medications Current Medications Acetaminophen (Tylenol Tab) 650 mg Q6H PRN PO PAIN LEVEL 1-3 OR FEVER; Start 03/27/17 at 14:30 Acetaminophen/ Hydrocodone Bitart ([place] (5/325)) 1 tab Q6H PRN PO MODERATE PAIN LEVEL 4-6; Start 03/27/17 at 14:30 Morphine Sulfate (morphine) 2 mg Q4H PRN IV SEVERE PAIN LEVEL 7-10; Start 03/27 at 14:30 Docusate Sodium (Colace) 100 mg Q12H PRN PO CONSTIPATION; Start 03/27/17 at 14: 30 Magnesium Hydroxide (Milk Of Mag) 30 ml DAILY PRN PO CONSTIPATION; Start at 14:30 Sodium Biphosphate/ Sodium Phosphate (Fleet Enema) 133 ml DAILY PRN [place] CONSTIPATION; Start 03/27/17 at 14:30 Lorazepam (Ativan) 0.5 mg Q6H PRN IV ANXIETY; Start 03/27/17 at 14:30 Hydralazine HCl (Apresoline) 10 mg Q6H PRN IV ELEVATED BLOOD PRESSURE; Start 03/27/17 at 14:30 Clonidine (Catapres) 0.1 mg Q6H PRN PO ELEVATED BLOOD PRESSURE; Start 03/27/17 at 14:30 Nitroglycerin (Nitroglycerin (Sl Tab) 0.4 Mg) 1 tab Q5M PRN SL ANGINA; Start 03/27/17 at 14:30 Atorvastatin Calcium (Lipitor) 20 mg QHS PO Last administered on 03/28/17 20: 25; Admin Dose 20 MG; Start 03/27/17 at 21:00 Hydrocortisone (Cortef) 20 mg QAM PO Last administered on 03/29/17 08:26; Admin Dose 20 MG; Start 03/28/17 at 09:00 Trimethobenzamide HCl 200 mg 200 mg Q6H PRN IM NAUSEA AND/OR VOMITING Last administered on 03/29/17 11:41; Admin Dose 200 MG; Start 03/28/17 at 10:00 Dextrose/Sodium Chloride 1,000 ml @ 75 mls/hr [id number] IV Last administered on 03/29/17 11:42; Admin Dose 75 MLS/HR; Start 03/28/17 at 10:00 Ondansetron HCl 8 mg/Sodium Chloride 54 ml @ 216 mls/hr Q6H PRN IV NAUSEA AND/ OR VOMITING; Start 03/28/17 at 11:00 Piperacillin Sod/ Tazobactam Sod (Zosyn 3.375gm/ 50 ml (Pmx)) 50 ml @ 100 mls/ hr Q6 IVPB Last administered on 03/29/17 11:41; Admin Dose 100 MLS/HR; Start 03/28/17 at 12:00 Apixaban (Eliquis) 5 mg BID PO Last administered on 03/29/17 08:26; Admin Dose 5 MG; Start 03/28/17 at 21:00 Metoprolol Tartrate (Lopressor) 25 mg BID PO Last administered on 03/29/17 08: 26; Admin Dose 25 MG; Start 03/28/17 at 21:00 Procedures Procedures 2D ECHO (03/28/17): Conclusions 1. The left ventricle is normal in size and systolic function. 2. Estimated left ventricular ejection fraction of 65-70%. 3. Moderate concentric left ventricular hypertrophy. 4. Borderline to mild aortic stenosis. BRITTNEY GIBSON Mar 29, 2017 13:44
[2017-03-29] MEDS ORDERED: KETOROLAC 30 MG INJ IV STA (17:08)
[2017-03-29] MEDS ORDERED: POTASSIUM CHLORIDE (SR) 20 MEQ TAB PO STA (17:09)
--- NOTE | 2017-03-29 19:19 | CONS ---
Date/Time of Note Date/Time of Note DATE: 03/29/17 TIME: 19:14 Assessment/Plan Assessment/Plan Chief Complaint/Hosp Course Assessment: Paroxysmal atrial fibrillation with rapid ventricular response - CHADS2 score of 2 (age>75, hypertension) Nausea and vomiting Hypokalemia and hypomagnesemia Hyponatremia Hypertension Dyslipidemia Panhypopituitarism, secondary to pituitary adenoma removal - on thyroid replacement with normal free T4 of 1.56, also on hydrocortisone Leukocytosis and lactic acidosis - rule out infection Recommendations: -discontinue metoprolol -start amiodarone 400mg TID -replace electrolytes to keep K>4 and Mg>2 -continue Eliquis 5mg BID for atrial fibrillation thromboembolic prophylaxis -continue atorvastatin 20mg daily -hold antihypertensive medications for now, resume as needed (but would discontinue hydrochlorothiazide with electrolyte abnormalities) -may need permanent pacemaker if tachy-farzad continues to be a problem after acute issues resolved Problems: Consultation Date/Type/Reason Admit Date/Time Mar 27, 2017 at 14:06 Initial Consult Date Type of Consultation: Cardiology 24 HR Interval Summary Free Text/Dictation Continues to go in and out of atrial fibrillation with rapid ventricular response with post conversion pauses. Detailed Summary Additional Comments Unable to obtain review of systems due to patient's mental status. Exam/Review of Systems Vital Signs Vitals Vital Signs Date Time Temp Pulse Resp B/P Pulse Ox O2 Delivery O2 Flow Rate FiO2 03/29/17 17:19 158 03/29/17 15:51 97.6 18 103/45 96 03/29/17 08:15 Nasal Cannula 2.0 Intake and Output 03/28/17 03/28/17 03/29/17 15:00 23:00 07:00 Intake Total 833.4 ml 1100 ml Balance 833.4 ml 1100 ml Exam Constitutional: No distress Psych: nl mood/affect, no complaints Head: atraumatic, normocephalic Eyes: nl conjunctiva, nl lids ENMT: nl external ears & nose, nl nasal mucosa & septum Neck: non-tender, supple, No jvd Respiratory: clear to auscultation, normal air movement Cardiovascular: irregular rhythm Gastrointestinal: non-tender, soft Musculoskeletal: nl extremities to inspection Extremities: No clubbing, No cyanosis, No edema Neurological: No nl mental status, No nl speech Results Result Diagram: 03/29/17 0748 03/29/17 0748 Results 24 hrs Laboratory Tests Test 03/28/17 20:40 03/29/17 00:49 03/29/17 07:48 03/29/17 13:04 Potassium Level 3.9 3.6 Magnesium Level 2.0 Lactic Acid Level 1.4 1.2 1.4 White Blood Count 11.4 #H Red Blood Count 4.25 Hemoglobin 12.9 Hematocrit 36.9 L Mean Corpuscular Volume 86.8 Mean Corpuscular Hemoglobin 30.4 Mean Corpuscular Hemoglobin Concent 35.0 Red Cell Distribution Width 13.0 Platelet Count 162 Mean Platelet Volume 9.7 Neutrophils % 79.7 H Lymphocytes % 8.0 L Monocytes % 9.1 Eosinophils % 2.6 Basophils % 0.2 Nucleated Red Blood Cells % 0.0 Neutrophils # 9.1 H Lymphocytes # 0.9 Monocytes # 1.0 H Eosinophils # 0.3 Basophils # 0.0 Nucleated Red Blood Cells # 0.0 Sodium Level 129 L Chloride Level 101 Carbon Dioxide Level 25 Anion Gap 7 L Blood Urea Nitrogen 7 Creatinine 0.91 Glucose Level 101 # Calcium Level 7.7 L Test 03/29/17 18:26 Lactic Acid Level 1.5 Medications Medications Current Medications Acetaminophen (Tylenol Tab) 650 mg Q6H PRN PO PAIN LEVEL 1-3 OR FEVER; Start 03/27/17 at 14:30 Acetaminophen/ Hydrocodone Bitart ([place] (5/325)) 1 tab Q6H PRN PO MODERATE PAIN LEVEL 4-6; Start 03/27/17 at 14:30 Morphine Sulfate (morphine) 2 mg Q4H PRN IV SEVERE PAIN LEVEL 7-10; Start 03/27 at 14:30 Docusate Sodium (Colace) 100 mg Q12H PRN PO CONSTIPATION; Start 03/27/17 at 14: 30 Magnesium Hydroxide (Milk Of Mag) 30 ml DAILY PRN PO CONSTIPATION; Start at 14:30 Sodium Biphosphate/ Sodium Phosphate (Fleet Enema) 133 ml DAILY PRN [place] CONSTIPATION; Start 03/27/17 at 14:30 Lorazepam (Ativan) 0.5 mg Q6H PRN IV ANXIETY; Start 03/27/17 at 14:30 Hydralazine HCl (Apresoline) 10 mg Q6H PRN IV ELEVATED BLOOD PRESSURE; Start 03/27/17 at 14:30 Clonidine (Catapres) 0.1 mg Q6H PRN PO ELEVATED BLOOD PRESSURE; Start 03/27/17 at 14:30 Nitroglycerin (Nitroglycerin (Sl Tab) 0.4 Mg) 1 tab Q5M PRN SL ANGINA; Start 03/27/17 at 14:30 Atorvastatin Calcium (Lipitor) 20 mg QHS PO Last administered on 03/28/17 20: 25; Admin Dose 20 MG; Start 03/27/17 at 21:00 Hydrocortisone (Cortef) 20 mg QAM PO Last administered on 03/29/17 08:26; Admin Dose 20 MG; Start 03/28/17 at 09:00 Trimethobenzamide HCl 200 mg 200 mg Q6H PRN IM NAUSEA AND/OR VOMITING Last administered on 03/29/17 11:41; Admin Dose 200 MG; Start 03/28/17 at 10:00 Dextrose/Sodium Chloride 1,000 ml @ 75 mls/hr [id number] IV Last administered on 03/29/17 11:42; Admin Dose 75 MLS/HR; Start 03/28/17 at 10:00 Ondansetron HCl 8 mg/Sodium Chloride 54 ml @ 216 mls/hr Q6H PRN IV NAUSEA AND/ OR VOMITING; Start 03/28/17 at 11:00 Piperacillin Sod/ Tazobactam Sod (Zosyn 3.375gm/ 50 ml (Pmx)) 50 ml @ 100 mls/ hr Q6 IVPB Last administered on 03/29/17 17:54; Admin Dose 100 MLS/HR; Start 03/28/17 at 12:00 Apixaban (Eliquis) 5 mg BID PO Last administered on 03/29/17 08:26; Admin Dose 5 MG; Start 03/28/17 at 21:00 Metoprolol Tartrate (Lopressor) 25 mg BID PO Last administered on 03/29/17 08: 26; Admin Dose 25 MG; Start 03/28/17 at 21:00 CHRISTIANNE BENAVIDES MD Mar 29, 2017 19:19
[2017-03-29] MEDS: ATORVASTATIN 20 MG TAB PO SCH (21:14)
[2017-03-29] MEDS: AMIODARONE 200 MG TAB PO SCH (21:15)
[2017-03-30] VITALS (12 sets, daily range): BP systolic 93–127; BP diastolic 49–78; PULSE 110–175; RESP 18–20
[2017-03-30] MEDS: DEXTROSE 5%-0.45% NACL 1,000 ML IV SCH ×2 (02:26→14:00)
[2017-03-30] MEDS: PIPER-TAZO 3.375 GM IV (PMX) 50 ML IVPB SCH ×4 (06:21→23:29)
[2017-03-30] MEDS: PANTOPRAZOLE (EC) 40 MG TAB PO SCH (06:21)
[2017-03-30] MEDS: LEVOTHYROXINE 100 MCG TAB PO SCH (06:21)
[2017-03-30 07:23] LABS: ABNORMAL IP MESSAGE 1; BASOPHILS % 0.3 % (0.0-2.0); EOSINOPHILS # 0.2 10^3/ul (0.0-0.5); EOSINOPHILS % 1.7 % (0.0-7.0); HEMATOCRIT 36.5 % (37.0-47.0); HEMOGLOBIN 12.4 g/dl (12.0-16.0); LYMPHOCYTES # 0.6 10^3/ul (0.8-2.9); MEAN CORPUSCULAR HEMOGLOBIN 30.2 pg (29.0-33.0); MEAN CORPUSCULAR VOLUME 88.8 fl (82.0-101.0); MEAN PLATELET VOLUME 9.7 fl (7.4-10.4); MONOCYTE # 0.7 10^3/ul (0.3-0.9); NEUTROPHILS % 86.7 % (39.0-77.0); PLATELET COUNT 140 10^3/UL (140-415); RED BLOOD COUNT 4.11 10^6/ul (4.20-5.40); RED CELL DISTRIBUTION WIDTH 13.3 % (11.5-14.5); WHITE BLOOD COUNT 11.6 10^3/ul (4.8-10.8)
[2017-03-30 07:38] LABS: POSITIVE DIFF @See below
[2017-03-30 07:53] LABS: CALCIUM 7.5 mg/dl (8.4-10.2); CREATININE 0.76 mg/dl (0.44-1.00); POTASSIUM 3.9 mmol/L (3.5-5.1)
[2017-03-30] MEDS: HYDROCORTISONE 5 MG TAB PO SCH (08:59)
[2017-03-30] MEDS: APIXABAN 5 MG TABLET PO SCH (08:59)
[2017-03-30] MEDS: AMIODARONE 200 MG TAB PO SCH ×3 (08:59→20:32)
[2017-03-30] MEDS ORDERED: METOPROLOL 5 MG INJ IV ONE (10:30)
--- NOTE | 2017-03-30 11:17 | CONS ---
Date/Time of Note Date/Time of Note DATE: 03/30/17 TIME: 11:10 Consult Date/Type/Reason Admit Date/Time Mar 27, 2017 at 14:06 Initial Consult Date Type of Consultation: Cardiology Subjective Continues to have paroxysms of atrial fibrillation, now more persistent ([id number]), BP lowish currently Objective Vital Signs Date Time Temp Pulse Resp B/P Pulse Ox O2 Delivery O2 Flow Rate FiO2 03/30/17 08:17 97.5 98 18 127/78 98 03/29/17 20:00 Nasal Cannula 2.0 Intake and Output 03/29/17 03/29/17 03/30/17 15:00 23:00 07:00 Intake Total 450 ml 1000 ml Output Total 600 ml Balance 450 ml 400 ml Tele: a.fib with RVR, up to 5-6 second pauses noted yesterday Exam Constitutional: No distress, non-verbal Neck: non-tender, supple, no jvd Respiratory: clear to auscultation, normal air movement Cardiovascular: irregular, irregular rhythm, tachycardic, no obvious murmurs Gastrointestinal: non-tender, soft Musculoskeletal: nl extremities to inspection Extremities: No clubbing, No cyanosis, No edema Results/Medications Result Diagram: 03/30/17 0704 03/30/17 0704 Results 24 hrs Laboratory Tests Test 03/29/17 13:04 03/29/17 18:26 03/30/17 07:04 Lactic Acid Level 1.4 1.5 White Blood Count 11.6 H Red Blood Count 4.11 L Hemoglobin 12.4 Hematocrit 36.5 L Mean Corpuscular Volume 88.8 Mean Corpuscular Hemoglobin 30.2 Mean Corpuscular Hemoglobin Concent 34.0 Red Cell Distribution Width 13.3 Platelet Count 140 Mean Platelet Volume 9.7 Neutrophils % 86.7 H Lymphocytes % 5.0 L Monocytes % 6.0 Eosinophils % 1.7 Basophils % 0.3 Nucleated Red Blood Cells % 0.0 Neutrophils # 10.0 H Lymphocytes # 0.6 L Monocytes # 0.7 Eosinophils # 0.2 Basophils # 0.0 Nucleated Red Blood Cells # 0.0 Sodium Level 133 L Potassium Level 3.9 Chloride Level 105 Carbon Dioxide Level 23 Anion Gap 9 Blood Urea Nitrogen 6 L Creatinine 0.76 Glucose Level 149 # Calcium Level 7.5 L Medications Current Medications Acetaminophen (Tylenol Tab) 650 mg Q6H PRN PO PAIN LEVEL 1-3 OR FEVER; Start 03/27/17 at 14:30 Acetaminophen/ Hydrocodone Bitart ([place] (5/325)) 1 tab Q6H PRN PO MODERATE PAIN LEVEL 4-6; Start 03/27/17 at 14:30 Morphine Sulfate (morphine) 2 mg Q4H PRN IV SEVERE PAIN LEVEL 7-10; Start 03/27 at 14:30 Docusate Sodium (Colace) 100 mg Q12H PRN PO CONSTIPATION; Start 03/27/17 at 14: 30 Magnesium Hydroxide (Milk Of Mag) 30 ml DAILY PRN PO CONSTIPATION; Start at 14:30 Sodium Biphosphate/ Sodium Phosphate (Fleet Enema) 133 ml DAILY PRN [place] CONSTIPATION; Start 03/27/17 at 14:30 Lorazepam (Ativan) 0.5 mg Q6H PRN IV ANXIETY; Start 03/27/17 at 14:30 Hydralazine HCl (Apresoline) 10 mg Q6H PRN IV ELEVATED BLOOD PRESSURE; Start 03/27/17 at 14:30 Clonidine (Catapres) 0.1 mg Q6H PRN PO ELEVATED BLOOD PRESSURE; Start 03/27/17 at 14:30 Nitroglycerin (Nitroglycerin (Sl Tab) 0.4 Mg) 1 tab Q5M PRN SL ANGINA; Start 03/27/17 at 14:30 Atorvastatin Calcium (Lipitor) 20 mg QHS PO Last administered on 03/29/17 21: 14; Admin Dose 20 MG; Start 03/27/17 at 21:00 Hydrocortisone (Cortef) 20 mg QAM PO Last administered on 03/30/17 08:59; Admin Dose 20 MG; Start 03/28/17 at 09:00 Trimethobenzamide HCl 200 mg 200 mg Q6H PRN IM NAUSEA AND/OR VOMITING Last administered on 03/29/17 11:41; Admin Dose 200 MG; Start 03/28/17 at 10:00 Dextrose/Sodium Chloride 1,000 ml @ 75 mls/hr [id number] IV Last administered on 03/30/17 02:26; Admin Dose 75 MLS/HR; Start 03/28/17 at 10:00 Ondansetron HCl 8 mg/Sodium Chloride 54 ml @ 216 mls/hr Q6H PRN IV NAUSEA AND/ OR VOMITING; Start 03/28/17 at 11:00 Piperacillin Sod/ Tazobactam Sod (Zosyn 3.375gm/ 50 ml (Pmx)) 50 ml @ 100 mls/ hr Q6 IVPB Last administered on 03/30/17 06:21; Admin Dose 100 MLS/HR; Start 03/28/17 at 12:00 Apixaban (Eliquis) 5 mg BID PO Last administered on 03/30/17 08:59; Admin Dose 5 MG; Start 03/28/17 at 21:00 Amiodarone HCl (Cordarone) 400 mg TID PO Last administered on 03/30/17 08:59; Admin Dose 400 MG; Start 03/29/17 at 21:00 Assessment/Plan Additional Assessment/Plan 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) - CHADS2 score of 2 (age>75, hypertension) Nausea and vomiting with electrolyte abnormalities; improving History of hypertension; now BP low in setting of a.fib with RVR Dyslipidemia Panhypopituitarism, secondary to pituitary adenoma removal - on thyroid replacement with normal free T4 of 1.56, also on hydrocortisone Leukocytosis and lactic acidosis - rule out infection Recommendations: -resume low dose Amio gtt, continue amiodarone 400mg TID -replace electrolytes to keep K>4 and Mg>2 -continue Eliquis 5mg BID for atrial fibrillation thromboembolic prophylaxis -continue atorvastatin 20mg daily -hold antihypertensive medications for now -EP eval for PPM if agreeable to DPOA/family ODALIS HANEY MD Mar 30, 2017 11:17
[2017-03-30] MEDS ORDERED: AMIODARONE 900 MG in DEXTROSE 5% 482 ML IV SCH (12:30)
--- NOTE | 2017-03-30 14:18 | PN ---
Date/Time of Note Date/Time of Note DATE: 03/30/17 TIME: 14:04 Assessment/Plan VTE Prophylaxis VTE Prophylaxis Intervention: other (Eliquis) Lines/Catheters IV [facility] Type [facility] Peripheral IV Urinary Cath still in place: No Assessment/Plan Chief Complaint/Hosp Course SUBJECTIVE: Pt having some more tachyarrhythmias this morning, seen by cardiology team and having to be put back on low-dose amiodarone drip. Patient denies chest pain or shortness of breath presently, otherwise alert. Family members are at the bedside as well. OBJECTIVE: VITAL SIGNS: (see below) PHYSICAL EXAMINATION: GENERAL: Patient lying in bed, less lethargic, answering questions properly, family members at the bedside Denies palpitations. HEENT: Pupils equal, round, reactive to light. Extraocular muscles intact. NECK: Supple. No thyromegaly. LUNGS: less distant breath sounds bilaterally. HEART: Irregularly irregular heart rate. Tachycardic. ABDOMEN: Soft, nontender, nondistended. Normal bowel sounds. No rebound or guarding. MUSCULOSKELETAL: No lower extremity edema bilaterally. NEUROLOGIC: No focal deficits. ASSESSMENT AND PLAN: 86-year-old female, presenting with nausea, vomiting, mild hyponatremia, and with tachyarrythmia. 1. Rapid heart rate -patient with tachy-farzad syndrome with paroxysmal atrial fibrillation (again with rapid ventricular response today) - CHADS2 score of 2 ( age>75, hypertension) - monitor, f/u cardiology consult rec's, currently recommending p.o. amiodarone as well as low-dose IV amiodarone drip, monitor heart rate --intravenous fluid hydration -started on Eliquis 5mg BID for atrial fibrillation thromboembolic prophylaxis this admission, continue -continue atorvastatin 20mg daily -Likely will need EP evaluation for PPM placement, I spoke with family members and patient at the bedside today, they are in agreement for this if it is indeed needed -follow-up cardiology team regarding final recommendations on this -Continue physical therapy 2. Weakness and nausea, vomiting, unclear source possibly secondary to #1, UA essentially non-diagnostic. Of note, patient had a KUB that showed nonobstructive bowel gas pattern. - continue antiemetics 8 mg of Zofran q.6 hours p.r.n - continue Tigan prn as well. - Follow up final urine culture results. 3. Prior history of hepatitis A - Continue to monitor for now. 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 5. History of hypertension. Blood pressure stable. Continue to monitor for now, bp meds per CV rec's 6. High cholesterol. Follow up lipid panel. Continue statin. 7. Gastrointestinal prophylaxis. Proton pump inhibitor. 8. Deep venous thrombosis prophylaxis. Sequential compression devices. Problems: Exam/Review of Systems Vital Signs Vitals Vital Signs Date Time Temp Pulse Resp B/P Pulse Ox O2 Delivery O2 Flow Rate FiO2 03/30/17 12:09 98.0 98 18 125/73 98 03/29/17 20:00 Nasal Cannula 2.0 Intake and Output 03/29/17 03/29/17 03/30/17 15:00 23:00 07:00 Intake Total 450 ml 1000 ml Output Total 600 ml Balance 450 ml 400 ml Results Result Diagram: 03/30/17 0704 03/30/17 0704 Results 24 hrs Laboratory Tests Test 03/29/17 18:26 03/30/17 07:04 Lactic Acid Level 1.5 White Blood Count 11.6 H Red Blood Count 4.11 L Hemoglobin 12.4 Hematocrit 36.5 L Mean Corpuscular Volume 88.8 Mean Corpuscular Hemoglobin 30.2 Mean Corpuscular Hemoglobin Concent 34.0 Red Cell Distribution Width 13.3 Platelet Count 140 Mean Platelet Volume 9.7 Neutrophils % 86.7 H Lymphocytes % 5.0 L Monocytes % 6.0 Eosinophils % 1.7 Basophils % 0.3 Nucleated Red Blood Cells % 0.0 Neutrophils # 10.0 H Lymphocytes # 0.6 L Monocytes # 0.7 Eosinophils # 0.2 Basophils # 0.0 Nucleated Red Blood Cells # 0.0 Sodium Level 133 L Potassium Level 3.9 Chloride Level 105 Carbon Dioxide Level 23 Anion Gap 9 Blood Urea Nitrogen 6 L Creatinine 0.76 Glucose Level 149 # Calcium Level 7.5 L Medications Medications Current Medications Acetaminophen (Tylenol Tab) 650 mg Q6H PRN PO PAIN LEVEL 1-3 OR FEVER; Start 03/27/17 at 14:30 Acetaminophen/ Hydrocodone Bitart ([place] (5/325)) 1 tab Q6H PRN PO MODERATE PAIN LEVEL 4-6; Start 03/27/17 at 14:30 Morphine Sulfate (morphine) 2 mg Q4H PRN IV SEVERE PAIN LEVEL 7-10; Start 03/27 at 14:30 Docusate Sodium (Colace) 100 mg Q12H PRN PO CONSTIPATION; Start 03/27/17 at 14: 30 Magnesium Hydroxide (Milk Of Mag) 30 ml DAILY PRN PO CONSTIPATION; Start at 14:30 Sodium Biphosphate/ Sodium Phosphate (Fleet Enema) 133 ml DAILY PRN [place] CONSTIPATION; Start 03/27/17 at 14:30 Lorazepam (Ativan) 0.5 mg Q6H PRN IV ANXIETY; Start 03/27/17 at 14:30 Hydralazine HCl (Apresoline) 10 mg Q6H PRN IV ELEVATED BLOOD PRESSURE; Start 03/27/17 at 14:30 Clonidine (Catapres) 0.1 mg Q6H PRN PO ELEVATED BLOOD PRESSURE; Start 03/27/17 at 14:30 Nitroglycerin (Nitroglycerin (Sl Tab) 0.4 Mg) 1 tab Q5M PRN SL ANGINA; Start 03/27/17 at 14:30 Atorvastatin Calcium (Lipitor) 20 mg QHS PO Last administered on 03/29/17 21: 14; Admin Dose 20 MG; Start 03/27/17 at 21:00 Hydrocortisone (Cortef) 20 mg QAM PO Last administered on 03/30/17 08:59; Admin Dose 20 MG; Start 03/28/17 at 09:00 Trimethobenzamide HCl 200 mg 200 mg Q6H PRN IM NAUSEA AND/OR VOMITING Last administered on 03/29/17 11:41; Admin Dose 200 MG; Start 03/28/17 at 10:00 Dextrose/Sodium Chloride 1,000 ml @ 75 mls/hr [id number] IV Last administered on 03/30/17 14:00; Admin Dose 75 MLS/HR; Start 03/28/17 at 10:00 Ondansetron HCl 8 mg/Sodium Chloride 54 ml @ 216 mls/hr Q6H PRN IV NAUSEA AND/ OR VOMITING; Start 03/28/17 at 11:00 Piperacillin Sod/ Tazobactam Sod (Zosyn 3.375gm/ 50 ml (Pmx)) 50 ml @ 100 mls/ hr Q6 IVPB Last administered on 03/30/17 12:37; Admin Dose 100 MLS/HR; Start 03/28/17 at 12:00 Apixaban (Eliquis) 5 mg BID PO Last administered on 03/30/17 08:59; Admin Dose 5 MG; Start 03/28/17 at 21:00 Amiodarone HCl 400 mg 400 mg TID PO Last administered on 03/30/17 14:02; Admin Dose 400 MG; Start 03/29/17 at 21:00 Amiodarone HCl/ Dextrose (Cordarone Iv/ D5W) 500 ml @ 0 mls/hr Q0M IV Last administered on 03/30/17 13:59; Admin Dose 33.4 MLS/HR; Start 03/30/17 at 12:30 ; Stop 03/31/17 at 12:29 BRITTNEY GIBSON Mar 30, 2017 14:14
--- NOTE | 2017-03-30 17:27 | CONS ---
Date/Time of Note Date/Time of Note DATE: 03/30/17 TIME: 17:24 Assessment/Plan Assessment/Plan Chief Complaint/Hosp Course atrial fib and sss Will need a pacer then an ablation Will stop the amiodarone IV Will start with IV cardizem drip Will cont the po amio. Will consent for a pacer implant. Problems: Consultation Date/Type/Reason Admit Date/Time Mar 27, 2017 at 14:06 Hx of Present Illness 86 y/o female with pmh of HTN, HLD, and atrial fib and now with SSS. The pt having episodes of 5 sec pauses and severe farzad despite being on meds; Past Surgical History Past Surgical Hx: no surgical history Social History Smoking Status: Never smoker Exam/Review of Systems Vital Signs Vitals Vital Signs Date Time Temp Pulse Resp B/P Pulse Ox O2 Delivery O2 Flow Rate FiO2 03/30/17 16:00 146 03/30/17 15:58 98.0 18 127/71 98 03/30/17 08:20 Nasal Cannula 2.0 Intake and Output 03/29/17 03/29/17 03/30/17 15:00 23:00 07:00 Intake Total 450 ml 1000 ml Output Total 600 ml Balance 450 ml 400 ml Exam Constitutional: alert Respiratory: clear to auscultation Cardiovascular: irregular rhythm Gastrointestinal: soft Results Result Diagram: 03/30/17 0704 03/30/17 0704 Results 24 hrs Laboratory Tests Test 03/29/17 18:26 03/30/17 07:04 Lactic Acid Level 1.5 White Blood Count 11.6 H Red Blood Count 4.11 L Hemoglobin 12.4 Hematocrit 36.5 L Mean Corpuscular Volume 88.8 Mean Corpuscular Hemoglobin 30.2 Mean Corpuscular Hemoglobin Concent 34.0 Red Cell Distribution Width 13.3 Platelet Count 140 Mean Platelet Volume 9.7 Neutrophils % 86.7 H Lymphocytes % 5.0 L Monocytes % 6.0 Eosinophils % 1.7 Basophils % 0.3 Nucleated Red Blood Cells % 0.0 Neutrophils # 10.0 H Lymphocytes # 0.6 L Monocytes # 0.7 Eosinophils # 0.2 Basophils # 0.0 Nucleated Red Blood Cells # 0.0 Sodium Level 133 L Potassium Level 3.9 Chloride Level 105 Carbon Dioxide Level 23 Anion Gap 9 Blood Urea Nitrogen 6 L Creatinine 0.76 Glucose Level 149 # Calcium Level 7.5 L Medications Medications Current Medications Acetaminophen (Tylenol Tab) 650 mg Q6H PRN PO PAIN LEVEL 1-3 OR FEVER; Start 03/27/17 at 14:30 Acetaminophen/ Hydrocodone Bitart ([place] (5/325)) 1 tab Q6H PRN PO MODERATE PAIN LEVEL 4-6; Start 03/27/17 at 14:30 Morphine Sulfate (morphine) 2 mg Q4H PRN IV SEVERE PAIN LEVEL 7-10; Start 03/27 at 14:30 Docusate Sodium (Colace) 100 mg Q12H PRN PO CONSTIPATION; Start 03/27/17 at 14: 30 Magnesium Hydroxide (Milk Of Mag) 30 ml DAILY PRN PO CONSTIPATION; Start at 14:30 Sodium Biphosphate/ Sodium Phosphate (Fleet Enema) 133 ml DAILY PRN [place] CONSTIPATION; Start 03/27/17 at 14:30 Lorazepam (Ativan) 0.5 mg Q6H PRN IV ANXIETY; Start 03/27/17 at 14:30 Hydralazine HCl (Apresoline) 10 mg Q6H PRN IV ELEVATED BLOOD PRESSURE; Start 03/27/17 at 14:30 Clonidine (Catapres) 0.1 mg Q6H PRN PO ELEVATED BLOOD PRESSURE; Start 03/27/17 at 14:30 Nitroglycerin (Nitroglycerin (Sl Tab) 0.4 Mg) 1 tab Q5M PRN SL ANGINA; Start 03/27/17 at 14:30 Atorvastatin Calcium (Lipitor) 20 mg QHS PO Last administered on 03/29/17 21: 14; Admin Dose 20 MG; Start 03/27/17 at 21:00 Hydrocortisone (Cortef) 20 mg QAM PO Last administered on 03/30/17 08:59; Admin Dose 20 MG; Start 03/28/17 at 09:00 Trimethobenzamide HCl 200 mg 200 mg Q6H PRN IM NAUSEA AND/OR VOMITING Last administered on 03/29/17 11:41; Admin Dose 200 MG; Start 03/28/17 at 10:00 Dextrose/Sodium Chloride 1,000 ml @ 75 mls/hr [id number] IV Last administered on 03/30/17 14:00; Admin Dose 75 MLS/HR; Start 03/28/17 at 10:00 Ondansetron HCl 8 mg/Sodium Chloride 54 ml @ 216 mls/hr Q6H PRN IV NAUSEA AND/ OR VOMITING; Start 03/28/17 at 11:00 Piperacillin Sod/ Tazobactam Sod (Zosyn 3.375gm/ 50 ml (Pmx)) 50 ml @ 100 mls/ hr Q6 IVPB Last administered on 03/30/17 12:37; Admin Dose 100 MLS/HR; Start 03/28/17 at 12:00 Apixaban (Eliquis) 5 mg BID PO Last administered on 03/30/17 08:59; Admin Dose 5 MG; Start 03/28/17 at 21:00 Amiodarone HCl 400 mg 400 mg TID PO Last administered on 03/30/17 14:02; Admin Dose 400 MG; Start 03/29/17 at 21:00 Amiodarone HCl/ Dextrose (Cordarone Iv/ D5W) 500 ml @ 0 mls/hr Q0M IV Last administered on 03/30/17 13:59; Admin Dose 33.4 MLS/HR; Start 03/30/17 at 12:30 ; Stop 03/31/17 at 12:29 VITO CORONA MD Mar 30, 2017 17:27
[2017-03-30] MEDS ORDERED: DILTIAZEM-D5W 125MG/125ML DRIP 125 ML IV SCH ×2 (18:00)
[2017-03-30] MEDS: ATORVASTATIN 20 MG TAB PO SCH (20:32)
[2017-03-30] MEDS ORDERED: ZOLPIDEM 5 MG TAB PO PRN (23:30)
[2017-03-31] VITALS (25 sets, daily range): BP systolic 97–162; BP diastolic 43–83; PULSE 72–120; RESP 17–23
[2017-03-31] MEDS: DEXTROSE 5%-0.45% NACL 1,000 ML IV SCH ×2 (04:40→18:00)
--- NOTE | 2017-03-31 05:46 | CONS ---
Date/Time of Note Date/Time of Note DATE: 03/31/17 TIME: 05:42 Consult Date/Type/Reason Admit Date/Time Mar 27, 2017 at 14:06 Type of Consultation: Cardiology Subjective Remains in a.fib with RVR, still with mild tachycardia while on Diltiazem drip. No reported CP/SOB Objective Vital Signs Date Time Temp Pulse Resp B/P Pulse Ox O2 Delivery O2 Flow Rate FiO2 03/31/17 04:04 110 03/31/17 04:00 98.6 20 128/61 95 03/30/17 20:00 Nasal Cannula 2.0 Intake and Output 03/30/17 03/30/17 03/31/17 15:00 23:00 07:00 Intake Total 750 ml Output Total 1300 ml Balance -550 ml Tele: a.fib with RVR (110s-120s) Exam Constitutional: No distress, resting comfortably Neck: non-tender, supple, no jvd Respiratory: clear to auscultation, normal air movement Cardiovascular: irregular, irregular rhythm, tachycardic, no obvious murmurs Gastrointestinal: non-tender, soft Musculoskeletal: nl extremities to inspection Extremities: No clubbing, No cyanosis, No edema Results/Medications Result Diagram: 03/30/17 0704 03/30/17 0704 Results 24 hrs Laboratory Tests Test 03/30/17 07:04 White Blood Count 11.6 H Red Blood Count 4.11 L Hemoglobin 12.4 Hematocrit 36.5 L Mean Corpuscular Volume 88.8 Mean Corpuscular Hemoglobin 30.2 Mean Corpuscular Hemoglobin Concent 34.0 Red Cell Distribution Width 13.3 Platelet Count 140 Mean Platelet Volume 9.7 Neutrophils % 86.7 H Lymphocytes % 5.0 L Monocytes % 6.0 Eosinophils % 1.7 Basophils % 0.3 Nucleated Red Blood Cells % 0.0 Neutrophils # 10.0 H Lymphocytes # 0.6 L Monocytes # 0.7 Eosinophils # 0.2 Basophils # 0.0 Nucleated Red Blood Cells # 0.0 Sodium Level 133 L Potassium Level 3.9 Chloride Level 105 Carbon Dioxide Level 23 Anion Gap 9 Blood Urea Nitrogen 6 L Creatinine 0.76 Glucose Level 149 # Calcium Level 7.5 L Medications Current Medications Acetaminophen (Tylenol Tab) 650 mg Q6H PRN PO PAIN LEVEL 1-3 OR FEVER; Start 03/27/17 at 14:30 Acetaminophen/ Hydrocodone Bitart ([place] (5/325)) 1 tab Q6H PRN PO MODERATE PAIN LEVEL 4-6; Start 03/27/17 at 14:30 Morphine Sulfate (morphine) 2 mg Q4H PRN IV SEVERE PAIN LEVEL 7-10; Start 03/27 at 14:30 Docusate Sodium (Colace) 100 mg Q12H PRN PO CONSTIPATION; Start 03/27/17 at 14: 30 Magnesium Hydroxide (Milk Of Mag) 30 ml DAILY PRN PO CONSTIPATION; Start at 14:30 Sodium Biphosphate/ Sodium Phosphate (Fleet Enema) 133 ml DAILY PRN [place] CONSTIPATION; Start 03/27/17 at 14:30 Lorazepam (Ativan) 0.5 mg Q6H PRN IV ANXIETY; Start 03/27/17 at 14:30 Hydralazine HCl (Apresoline) 10 mg Q6H PRN IV ELEVATED BLOOD PRESSURE; Start 03/27/17 at 14:30 Clonidine (Catapres) 0.1 mg Q6H PRN PO ELEVATED BLOOD PRESSURE; Start 03/27/17 at 14:30 Nitroglycerin (Nitroglycerin (Sl Tab) 0.4 Mg) 1 tab Q5M PRN SL ANGINA; Start 03/27/17 at 14:30 Atorvastatin Calcium (Lipitor) 20 mg QHS PO Last administered on 03/30/17 20: 32; Admin Dose 20 MG; Start 03/27/17 at 21:00 Hydrocortisone (Cortef) 20 mg QAM PO Last administered on 03/30/17 08:59; Admin Dose 20 MG; Start 03/28/17 at 09:00 Trimethobenzamide HCl 200 mg 200 mg Q6H PRN IM NAUSEA AND/OR VOMITING Last administered on 03/29/17 11:41; Admin Dose 200 MG; Start 03/28/17 at 10:00 Dextrose/Sodium Chloride 1,000 ml @ 75 mls/hr [id number] IV Last administered on 03/30/17 14:00; Admin Dose 75 MLS/HR; Start 03/28/17 at 10:00 Ondansetron HCl 8 mg/Sodium Chloride 54 ml @ 216 mls/hr Q6H PRN IV NAUSEA AND/ OR VOMITING; Start 03/28/17 at 11:00 Piperacillin Sod/ Tazobactam Sod (Zosyn 3.375gm/ 50 ml (Pmx)) 50 ml @ 100 mls/ hr Q6 IVPB Last administered on 03/30/17 23:29; Admin Dose 100 MLS/HR; Start 03/28/17 at 12:00 Apixaban (Eliquis) 5 mg BID PO Last administered on 03/30/17 08:59; Admin Dose 5 MG; Start 03/28/17 at 21:00; Status Future Hold Amiodarone HCl 400 mg 400 mg TID PO Last administered on 03/30/17 20:32; Admin Dose 400 MG; Start 03/29/17 at 21:00 Cefazolin Sodium 50 ml @ 100 mls/hr OC ONCE IVPB ; Start 03/31/17 at 06:30; Stop 03/31/17 at 06:59 Diltiazem HCl (Cardizem-D5W 125 Mg/125 ml Drip) 125 ml @ 5 mls/hr TITRATE IV Last administered on 03/30/17 20:31; Admin Dose 5 MLS/HR; Start 03/30/17 at 18: 00 Assessment/Plan Additional Assessment/Plan Assessment: 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) - CHADS2 score of 2 (age>75, hypertension) Nausea and vomiting with electrolyte abnormalities; improving History of hypertension; now BP low in setting of a.fib with RVR Dyslipidemia Panhypopituitarism, secondary to pituitary adenoma removal - on thyroid replacement with normal free T4 of 1.56, also on hydrocortisone Leukocytosis and lactic acidosis - rule out infection Recommendations: -Appreciate EP eval with Dr. Clemons. Continue Cardizem gtt and Amiodarone 400mg TID -PPM and eventual EPS/ablation will be considered -Follow-up and replace electrolytes to keep K>4 and Mg>2 -continue Eliquis 5mg BID for atrial fibrillation thromboembolic prophylaxis -continue atorvastatin 20mg daily -hold antihypertensive medications for now ODALIS HANEY MD Mar 31, 2017 05:46
[2017-03-31] MEDS: PIPER-TAZO 3.375 GM IV (PMX) 50 ML IVPB SCH ×3 (05:48→11:21)
[2017-03-31] MEDS ORDERED: CEFAZOLIN 1 GM/50 ML (PMX) 50 ML IVPB ONE (06:30)
[2017-03-31 06:40] LABS: BASOPHILS % 0.3 % (0.0-2.0); EOSINOPHILS # 0.5 10^3/ul (0.0-0.5); EOSINOPHILS % 5.2 % (0.0-7.0); HEMATOCRIT 34.9 % (37.0-47.0); HEMOGLOBIN 12.1 g/dl (12.0-16.0); LYMPHOCYTES # 0.7 10^3/ul (0.8-2.9); LYMPHOCYTES % 7.5 % (15.0-51.0); MEAN CORPUSCULAR HGB CONC 34.7 g/dl (32.0-37.0); MEAN CORPUSCULAR VOLUME 86.4 fl (82.0-101.0); MEAN PLATELET VOLUME 9.4 fl (7.4-10.4); MONOCYTE # 0.7 10^3/ul (0.3-0.9); MONOCYTES % 7.5 % (0.0-11.0); NEUTROPHIL # 7.9 10^3/ul (1.6-7.5); NEUTROPHILS % 79.1 % (39.0-77.0); PLATELET COUNT 172 10^3/UL (140-415); RED BLOOD COUNT 4.04 10^6/ul (4.20-5.40); RED CELL DISTRIBUTION WIDTH 13.1 % (11.5-14.5); WHITE BLOOD COUNT 9.9 10^3/ul (4.8-10.8)
[2017-03-31] MEDS ORDERED: CEFAZOLIN 1 GM INJ ONE (07:00)
[2017-03-31] MEDS ORDERED: EPHEDrine SULFATE 50 MG/5 ML SYG ONE (07:00)
[2017-03-31 07:21] LABS: CALCIUM 7.6 mg/dl (8.4-10.2); CREATININE 0.72 mg/dl (0.44-1.00); POTASSIUM 3.3 mmol/L (3.5-5.1)
[2017-03-31 07:26] LABS: ALBUMIN 2.3 g/dl (3.3-4.9); ALBUMIN/GLOBULIN RATIO 0.95; BILIRUBIN,INDIRECT 0.6 mg/dl (0-1.1); BILIRUBIN,TOTAL 0.6 mg/dl (0.2-1.3); CALCIUM 7.5 mg/dl (8.4-10.2); CREATININE 0.68 mg/dl (0.44-1.00); POTASSIUM 3.9 mmol/L (3.5-5.1); TOTAL PROTEIN 4.7 g/dl (6.1-8.1)
[2017-03-31] MEDS ORDERED: BUPIVACAINE 0.5% (SDV) 30 ML INJ ONE (08:00)
[2017-03-31] MEDS ORDERED: LIDOCAINE 1% (MPF) 30 ML INJ ONE (08:00)
[2017-03-31] MEDS ORDERED: BUPIVACAINE 0.25% (MPF) 30 ML INJ ONE (08:01)
[2017-03-31] MEDS ORDERED: HEPARIN 1000 UNITS/ML 10 ML INJ ONE (08:01)
[2017-03-31] MEDS ORDERED: POLYMYXIN/BACITRACIN 1L IRRIG ONE (08:01)
[2017-03-31] MEDS ORDERED: MINERAL OIL LIGHT 10 ML VIAL ONE (08:04)
[2017-03-31] MEDS ORDERED: FENTAnyl 50 MCG/ML VIAL ONE (08:18)
[2017-03-31] MEDS ORDERED: MIDAZOLAM 1 MG/ML 2 ML INJ ONE (08:18)
[2017-03-31] MEDS ORDERED: LIDOCAINE 2% (SDV) 5 ML INJ ONE (08:18)
[2017-03-31] MEDS ORDERED: PROPOFOL 20 ML ONE (08:18)
[2017-03-31] MEDS ORDERED: HYDROmorphONE (0.2 MG/ML) 10ML SYG IV PRN ×2 (08:30)
[2017-03-31] MEDS ORDERED: ONDANSETRON 4 MG INJ IV PRN (08:30)
[2017-03-31] MEDS ORDERED: LIDOCAINE 1%/EPI 30 ML INJ ONE (08:39)
[2017-03-31] MEDS ORDERED: IOHEXOL 300MG/ML 30 ML BTL ONE (08:40)
[2017-03-31] MEDS ORDERED: THROMBIN 5000 UNIT VIAL ONE (09:07)
[2017-03-31] MEDS ORDERED: GELATIN SIZE 100 SPONGE ONE (09:07)
[2017-03-31] MEDS ORDERED: ONDANSETRON 4 MG INJ ONE (09:08)
[2017-03-31] MEDS ORDERED: DEXAMETHASONE 4 MG/ML 1 ML INJ ONE (09:08)
--- NOTE | 2017-03-31 09:37 | SIPON ---
Date/Time of Note Date/Time of Note DATE: 03/31/17 TIME: 09:35 Operative Report Preoperative Diagnosis sick sinus syndrome and 5 sec. pauses Bradycardia Postoperative Diagnosis same Operation/Procedure Performed pacemaker implant Surgeon see signature line or first assist registered nurse pacemaker implant Anesthesia: MAC, moderate sedation Estimated blood loss: 0 - 10 ml's Transfusion Required none Specimen pacemaker implanted Grafts/Implants none Complications none VITO CORONA MD Mar 31, 2017 09:37
--- NOTE | 2017-03-31 09:56 | RADRPT ---
PROCEDURE: XR Chest. CLINICAL INDICATION: post pacemaker implantation. . TECHNIQUE: Single frontal chest x-ray. COMPARISON: DR CHEST 03/27/2017; [facility] CHEST 05/12/2009; [facility] CHEST 05/10/2009; [facility] CHEST 05/01/19 08 FINDINGS: There has been interval placement of a left-sided dual chamber cardiac pacer. There is no evidence o f pneumothorax. There is increased diffuse bilateral interstitial and mild alveolar edema or infiltr ates. There are no pleural effusions. . Calcific atherosclerosis of the aorta is present.. The card iomediastinal silhouette is unremarkable. The osseous structures are intact. IMPRESSION: 1. Placement of left-sided pacer without pneumothorax. 2. Increased bilateral interstitial and mild alveolar infiltrates or edema.. RPTAT: QQ .Garland Glass MD, MD Date Time Electronically viewed and signed by .Garland Glass MD, MD on 03/31/2017 09:56 .L/
[2017-03-31] MEDS ORDERED: EPHEDrine SULFATE 50 MG/5 ML SYG IV PRN (10:00)
[2017-03-31] MEDS: CEFAZOLIN 1 GM/50 ML (PMX) 50 ML IVPB SCH ×4 (10:00→22:37)
[2017-03-31] MEDS ORDERED: DILTIAZEM (CD) 120 MG CAP PO SCH (11:00)
[2017-03-31] MEDS: HYDROCORTISONE 5 MG TAB PO SCH (11:17)
[2017-03-31] MEDS: PANTOPRAZOLE (EC) 40 MG TAB PO SCH (11:17)
[2017-03-31] MEDS: LEVOTHYROXINE 100 MCG TAB PO SCH (11:17)
--- NOTE | 2017-03-31 11:30 | RADRPT ---
PROCEDURE: Fluoroscopy CLINICAL INDICATION: Pacemaker placement TECHNIQUE: 113 seconds fluoroscopic time utilized by Dr. Clemons for procedure. 14 images/sequences of are submitted. COMPARISON: None FINDINGS: Placement of dual chamber cardiac pacer from left subclavian approach is demonstrated. IMPRESSION: Fluoroscopy utilized by Dr. Clemons for procedure Please see procedural report for complete details. RPTAT: QQ .Garland Glass MD, MD Date Time Electronically viewed and signed by .Garland Glass MD, on 03/31/2017 11:29 .L/
--- NOTE | 2017-03-31 12:05 | OPR ---
DATE OF OPERATION: 03/31/2017 INDICATION FOR THE PROCEDURE: Sick sinus syndrome as well as significant symptomatic bradycardia wi th episodes of pauses of approximately 5 to 6 seconds. The patient will require a pacemaker implant. REFERRING PHYSICIAN: Dr. Moraima Berry. Thank you, Dr. Berry, for allowing me to participate in the care of your patient. PROCEDURE: 1. Implantation of a dual-chamber pacemaker. 2. Implantation of right atrial lead. 3. Implantation of right ventricular lead. 4. Right atrial pacing recording. 5. Right ventricular pacing recording. 6. O2 sat monitoring, blood pressure monitoring. 7. Defibrillator pad placements anteriorly and posteriorly. 8. Fluoroscopy and fluoroscopic use in order to guide needle placement to the vessel. 9. Defibrillator pad placements anteriorly and posteriorly tested. 10. Under conscious sedation as well as MAC anesthesia by the anesthesiologist. 11. Autonomic nervous system interrogation. 12. IV medication infusion during the procedure for rate control. DESCRIPTION OF PROCEDURE: After informed consent was obtained by the patient, the patient was broug ht into the cardiac operating room where the patient's left chest and neck region was prepped and dr aped in usual sterile fashion. Following this, 1% lidocaine was used in order to infiltrate the lef t deltopectoral groove. Then, following this was using contrast the subclavian vessel as well as th e superior vena cava was visualized. Following this, the patient then received a micropuncture need le into the left subclavian vessel followed by a sheath into the subclavian vessel and the superior vena cava. No complications occurred. Following this, the patient then had the leads placed in the right atrium and right ventricle. Right atrial and right ventricular pacing recording was performe d. Next device was brought to the field. Device and leads were connected to each other and placed into the pocket. Pocket was irrigated copiously with antibiotic solution. The leads were secured onto the muscle and the fascia. Device and leads were then secured into the pocket. Pocket was sut ured using 2-0 Vicryl and 4-0 Vicryl and the patient tolerated the procedure well. IMPRESSION: Successful implantation of a dual-chamber pacemaker. Please see the implant sheet for details in regards to pacing recording and also serial numbers. Dictated By: VITO CORONA MD, LP/MICAH Conf#: [id number] DID#: [id number] CC: MORAIMA BERRY MD;*[facility]*
[2017-03-31] MEDS: DILTIAZEM (CD) 180 MG CAP PO SCH (12:22)
--- NOTE | 2017-03-31 13:01 | PN ---
Date/Time of Note Date/Time of Note DATE: 03/31/17 TIME: 12:58 Assessment/Plan VTE Prophylaxis VTE Prophylaxis Intervention: other (Eliquis) Lines/Catheters [facility] Peripheral IV Urinary Cath still in place: No Assessment/Plan Chief Complaint/Hosp Course SUBJECTIVE: Patient had pacemaker placed this morning by EP disk recordist. On p.o. amiodarone and p.o. Cardizem presently with rate control. OBJECTIVE: VITAL SIGNS: (see below) PHYSICAL EXAMINATION: GENERAL: Patient lying in bed, less lethargic, answering questions properly, family members at the bedside Denies palpitations. HEENT: Pupils equal, round, reactive to light. Extraocular muscles intact. NECK: Supple. No thyromegaly. LUNGS: less distant breath sounds bilaterally. HEART: Irregularly irregular heart rate. Tachycardic. ABDOMEN: Soft, nontender, nondistended. Normal bowel sounds. No rebound or guarding. MUSCULOSKELETAL: No lower extremity edema bilaterally. NEUROLOGIC: No focal deficits. ASSESSMENT AND PLAN: 86-year-old female, presenting with nausea, vomiting, mild hyponatremia, and with tachyarrythmia. 1. Rapid heart rate -patient with tachy-farzad syndrome with paroxysmal atrial fibrillation (again with rapid ventricular response today) - CHADS2 score of 2 ( age>75, hypertension) - monitor, f/u cardiology consult rec's, and status post pacemaker this morning, monitor heart rate -started on Eliquis 5mg BID for atrial fibrillation thromboembolic prophylaxis this admission, continue -continue atorvastatin 20mg daily -Continue physical therapy 2. Weakness and nausea, vomiting, unclear source possibly secondary to #1, UA essentially non-diagnostic. Of note, patient had a KUB that showed nonobstructive bowel gas pattern. - continue antiemetics 8 mg of Zofran q.6 hours p.r.n - continue Tigan prn as well. - Follow up final urine culture results. 3. Prior history of hepatitis A - Continue to monitor for now. 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 5. History of hypertension. Blood pressure stable. Continue to monitor for now, bp meds per CV rec's 6. High cholesterol. Follow up lipid panel. Continue statin. 7. Gastrointestinal prophylaxis. Proton pump inhibitor. 8. Deep venous thrombosis prophylaxis. Sequential compression devices. Problems: Exam/Review of Systems Vital Signs Vitals Vital Signs Date Time Temp Pulse Resp B/P Pulse Ox O2 Delivery O2 Flow Rate FiO2 03/31/17 12:26 98.0 68 18 162/67 98 03/31/17 10:30 Room Air 03/30/17 20:00 2.0 Intake and Output 03/30/17 03/30/17 03/31/17 15:00 23:00 07:00 Intake Total 750 ml 350 ml Output Total 1300 ml 800 ml Balance -550 ml -450 ml Results Result Diagram: 03/31/1760403/31/17604 Results 24 hrs Laboratory Tests Test 03/31/17 06:05 White Blood Count 9.9 Red Blood Count 4.04 L Hemoglobin 12.1 Hematocrit 34.9 L Mean Corpuscular Volume 86.4 Mean Corpuscular Hemoglobin 30.0 Mean Corpuscular Hemoglobin Concent 34.7 Red Cell Distribution Width 13.1 Platelet Count 172 # Mean Platelet Volume 9.4 Neutrophils % 79.1 H Lymphocytes % 7.5 L Monocytes % 7.5 Eosinophils % 5.2 Basophils % 0.3 Nucleated Red Blood Cells % 0.0 Neutrophils # 7.9 H Lymphocytes # 0.7 L Monocytes # 0.7 Eosinophils # 0.5 Basophils # 0.0 Nucleated Red Blood Cells # 0.0 Activated Partial Thromboplast Time 56.6 H Sodium Level 132 L Potassium Level 3.9 Chloride Level 105 Carbon Dioxide Level 22 Anion Gap 9 Blood Urea Nitrogen 5 L Creatinine 0.68 Glucose Level 103 Calcium Level 7.5 L Total Bilirubin 0.6 Direct Bilirubin 0.00 Indirect Bilirubin 0.6 Aspartate Amino Transf (AST/SGOT) 35 Alanine Aminotransferase (ALT/SGPT) 34 Alkaline Phosphatase 67 Total Protein 4.7 L Albumin 2.3 L Globulin 2.40 Albumin/Globulin Ratio 0.95 Medications Medications Current Medications Acetaminophen (Tylenol Tab) 650 mg Q6H PRN PO PAIN LEVEL 1-3 OR FEVER; Start 03/27/17 at 14:30 Acetaminophen/ Hydrocodone Bitart ([place] (5/325)) 1 tab Q6H PRN PO MODERATE PAIN LEVEL 4-6; Start 03/27/17 at 14:30 Morphine Sulfate (morphine) 2 mg Q4H PRN IV SEVERE PAIN LEVEL 7-10; Start 03/27 at 14:30 Docusate Sodium (Colace) 100 mg Q12H PRN PO CONSTIPATION; Start 03/27/17 at 14: 30 Magnesium Hydroxide (Milk Of Mag) 30 ml DAILY PRN PO CONSTIPATION; Start at 14:30 Sodium Biphosphate/ Sodium Phosphate (Fleet Enema) 133 ml DAILY PRN [place] CONSTIPATION; Start 03/27/17 at 14:30 Lorazepam (Ativan) 0.5 mg Q6H PRN IV ANXIETY; Start 03/27/17 at 14:30 Hydralazine HCl (Apresoline) 10 mg Q6H PRN IV ELEVATED BLOOD PRESSURE; Start 03/27/17 at 14:30 Clonidine (Catapres) 0.1 mg Q6H PRN PO ELEVATED BLOOD PRESSURE; Start 03/27/17 at 14:30 Nitroglycerin (Nitroglycerin (Sl Tab) 0.4 Mg) 1 tab Q5M PRN SL ANGINA; Start 03/27/17 at 14:30 Atorvastatin Calcium (Lipitor) 20 mg QHS PO Last administered on 03/30/17 20: 32; Admin Dose 20 MG; Start 03/27/17 at 21:00 Hydrocortisone (Cortef) 20 mg QAM PO Last administered on 03/31/17 11:17; Admin Dose 20 MG; Start 03/28/17 at 09:00 Trimethobenzamide HCl 200 mg 200 mg Q6H PRN IM NAUSEA AND/OR VOMITING Last administered on 03/29/17 11:41; Admin Dose 200 MG; Start 03/28/17 at 10:00 Dextrose/Sodium Chloride 1,000 ml @ 75 mls/hr [id number] IV Last administered on 03/30/17 14:00; Admin Dose 75 MLS/HR; Start 03/28/17 at 10:00 Ondansetron HCl 8 mg/Sodium Chloride 54 ml @ 216 mls/hr Q6H PRN IV NAUSEA AND/ OR VOMITING; Start 03/28/17 at 11:00 Piperacillin Sod/ Tazobactam Sod (Zosyn 3.375gm/ 50 ml (Pmx)) 50 ml @ 100 mls/ hr Q6 IVPB Last administered on 03/31/17 11:21; Admin Dose 100 MLS/HR; Start 03/28/17 at 12:00 Apixaban 5 mg 5 mg BID PO Last administered on 03/30/17 08:59; Admin Dose 5 MG ; Start 03/28/17 at 21:00; Status Future Hold Diltiazem HCl 125 ml @ 5 mls/hr TITRATE IV Last administered on 03/30/17 20:31 ; Admin Dose 5 MLS/HR; Start 03/30/17 at 18:00 Cefazolin Sodium (Ancef 1 Gm/50 ml (Pmx)) 50 ml @ 100 mls/hr Q8 IVPB Last administered on 03/31/17 11:21; Admin Dose 100 MLS/HR; Start 03/31/17 at 10: 00; Stop 03/31/17 at 22:29 Diltiazem HCl (Cardizem Cd) 180 mg DAILY PO Last administered on 03/31/17 12: 22; Admin Dose 180 MG; Start 03/31/17 at 11:00 Amiodarone HCl (Cordarone) 200 mg BID PO ; Start 03/31/17 at 21:00 BRITTNEY GIBSON Mar 31, 2017 13:01
[2017-03-31] MEDS: ATORVASTATIN 20 MG TAB PO SCH (20:44)
[2017-03-31] MEDS: AMIODARONE 200 MG TAB PO SCH (20:45)
[2017-04-01] VITALS (10 sets, daily range): BP systolic 104–120; BP diastolic 51–74; PULSE 78–84; RESP 17–20
[2017-04-01] MEDS: PIPER-TAZO 3.375 GM IV (PMX) 50 ML IVPB SCH ×2 (00:16→05:19)
[2017-04-01] MEDS: LEVOTHYROXINE 100 MCG TAB PO SCH (06:04)
[2017-04-01] MEDS: DEXTROSE 5%-0.45% NACL 1,000 ML IV SCH (07:20)
[2017-04-01 08:22] LABS: ABNORMAL IP MESSAGE 1; BASOPHILS % 0.1 % (0.0-2.0); HEMATOCRIT 30.9 % (37.0-47.0); HEMOGLOBIN 10.5 g/dl (12.0-16.0); LYMPHOCYTES # 0.4 10^3/ul (0.8-2.9); LYMPHOCYTES % 3.5 % (15.0-51.0); MEAN CORPUSCULAR HEMOGLOBIN 29.7 pg (29.0-33.0); MEAN CORPUSCULAR VOLUME 87.3 fl (82.0-101.0); MEAN PLATELET VOLUME 9.4 fl (7.4-10.4); MONOCYTE # 0.7 10^3/ul (0.3-0.9); MONOCYTES % 6.7 % (0.0-11.0); NEUTROPHIL # 8.9 10^3/ul (1.6-7.5); NEUTROPHILS % 89.3 % (39.0-77.0); PLATELET COUNT 165 10^3/UL (140-415); RED BLOOD COUNT 3.54 10^6/ul (4.20-5.40); RED CELL DISTRIBUTION WIDTH 13.5 % (11.5-14.5)
[2017-04-01 08:23] LABS: POSITIVE DIFF @See below
[2017-04-01 08:52] LABS: CALCIUM 7.8 mg/dl (8.4-10.2); CREATININE 0.69 mg/dl (0.44-1.00)
[2017-04-01] MEDS: PANTOPRAZOLE (EC) 40 MG TAB PO SCH (09:16)
[2017-04-01] MEDS: HYDROCORTISONE 5 MG TAB PO SCH (09:16)
[2017-04-01] MEDS: AMIODARONE 200 MG TAB PO SCH ×2 (09:17→21:23)
[2017-04-01] MEDS: DILTIAZEM (CD) 180 MG CAP PO SCH (09:22)
--- NOTE | 2017-04-01 16:41 | PN ---
Date/Time of Note Date/Time of Note DATE: 04/01/17 TIME: 16:40 Assessment/Plan VTE Prophylaxis VTE Prophylaxis Intervention: SCD's Lines/Catheters IV Catheter Type (from Nrs): Saline Lock Urinary Cath still in place: No Assessment/Plan Assessment/Plan 88 yo F with pAF, panhypopituitarism presented with weakness 2/2 tachy-farzad syndrome. sp PM placement 12.. #tachy farzad sx, hx pAF -sp PM placement and device eval by rep today -cont Eliquis ([id number] >2 thus full ATC indicated) -cont current BP meds/HR meds (amio and dilt) #endo/panhypopituitarism: -cont home steroids -ft4 wnl. cont synthroid dose #HL: cont statin #prophx: DVT dispo: needs PT/OT evals transfer from tele to med surg now that PM is in place Subjective 24 Hr Interval Summary Free Text/Dictation Pt talking with device rep at time of my eval this AM Exam/Review of Systems Vital Signs Vitals Vital Signs Date Time Temp Pulse Resp B/P Pulse Ox O2 Delivery O2 Flow Rate FiO2 04/01/17 16:05 81 04/01/17 15:43 98.1 17 105/55 97 04/01/17 08:00 Nasal Cannula 2.0 Intake and Output 03/31/17 03/31/17 04/01/17 14:59 22:59 06:59 Intake Total 500 ml 700 ml 1150 ml Output Total 20 ml 1200 ml Balance 480 ml -500 ml 1150 ml Exam nad no mrg lungs clear abd soft no rashes Results Result Diagram: 04/01/17 0712 04/01/17 0712 Results 24 hrs Laboratory Tests Test 04/01/17 07:12 04/01/17 08:46 White Blood Count 10.0 Red Blood Count 3.54 L Hemoglobin 10.5 L Hematocrit 30.9 L Mean Corpuscular Volume 87.3 Mean Corpuscular Hemoglobin 29.7 Mean Corpuscular Hemoglobin Concent 34.0 Red Cell Distribution Width 13.5 Platelet Count 165 Mean Platelet Volume 9.4 Neutrophils % 89.3 H Lymphocytes % 3.5 L Monocytes % 6.7 Eosinophils % 0.0 Basophils % 0.1 Nucleated Red Blood Cells % 0.0 Neutrophils # 8.9 H Lymphocytes # 0.4 L Monocytes # 0.7 Eosinophils # 0.0 Basophils # 0.0 Nucleated Red Blood Cells # 0.0 Sodium Level 139 Potassium Level 4.0 Chloride Level 105 Carbon Dioxide Level 30 Anion Gap 8 Blood Urea Nitrogen 7 Creatinine 0.69 Glucose Level 152 Calcium Level 7.8 L Lab Scanned Report REFERENCE LAB Medications Medications Current Medications Acetaminophen (Tylenol Tab) 650 mg Q6H PRN PO PAIN LEVEL 1-3 OR FEVER; Start 03/27/17 at 14:30 Acetaminophen/ Hydrocodone Bitart ([place] (5/325)) 1 tab Q6H PRN PO MODERATE PAIN LEVEL 4-6; Start 03/27/17 at 14:30 Morphine Sulfate (morphine) 2 mg Q4H PRN IV SEVERE PAIN LEVEL 7-10; Start 03/27 at 14:30 Docusate Sodium (Colace) 100 mg Q12H PRN PO CONSTIPATION; Start 03/27/17 at 14: 30 Magnesium Hydroxide (Milk Of Mag) 30 ml DAILY PRN PO CONSTIPATION; Start at 14:30 Sodium Biphosphate/ Sodium Phosphate (Fleet Enema) 133 ml DAILY PRN [place] CONSTIPATION; Start 03/27/17 at 14:30 Lorazepam (Ativan) 0.5 mg Q6H PRN IV ANXIETY; Start 03/27/17 at 14:30 Hydralazine HCl (Apresoline) 10 mg Q6H PRN IV ELEVATED BLOOD PRESSURE; Start 03/27/17 at 14:30 Clonidine (Catapres) 0.1 mg Q6H PRN PO ELEVATED BLOOD PRESSURE; Start 03/27/17 at 14:30 Nitroglycerin (Nitroglycerin (Sl Tab) 0.4 Mg) 1 tab Q5M PRN SL ANGINA; Start 03/27/17 at 14:30 Atorvastatin Calcium (Lipitor) 20 mg QHS PO Last administered on 03/31/17 20: 44; Admin Dose 20 MG; Start 03/27/17 at 21:00 Hydrocortisone (Cortef) 20 mg QAM PO Last administered on 04/01/17 09:16; Admin Dose 20 MG; Start 03/28/17 at 09:00 Trimethobenzamide HCl 200 mg 200 mg Q6H PRN IM NAUSEA AND/OR VOMITING Last administered on 03/29/17 11:41; Admin Dose 200 MG; Start 03/28/17 at 10:00 Ondansetron HCl/ Sodium Chloride (Zofran Inj/NS) 54 ml @ 216 mls/hr Q6H PRN IV NAUSEA AND/OR VOMITING; Start 03/28/17 at 11:00 Apixaban (Eliquis) 5 mg BID PO Last administered on 03/30/17 08:59; Admin Dose 5 MG; Start 03/28/17 at 21:00; Status Future Hold Diltiazem HCl (Cardizem Cd) 180 mg DAILY PO Last administered on 04/01/17 09: 22; Admin Dose 180 MG; Start 03/31/17 at 11:00 Amiodarone HCl (Cordarone) 200 mg BID PO Last administered on 04/01/17 09:17 ; Admin Dose 200 MG; Start 03/31/17 at 21:00 KATHE TERRY MD Apr 01, 2017 16:41 Ondansetron HCl/ Sodium Chloride (Zofran Inj/NS) 54 ml @ 216 mls/hr Q6H PRN IV NAUSEA AND/OR VOMITING; Start 03/28/17 at 11:00 Apixaban (Eliquis) 5 mg BID PO Last administered on 03/30/17 08:59; Admin Dose 5 MG; Start 03/28/17 at 21:00; Status Future Hold Diltiazem HCl (Cardizem Cd) 180 mg DAILY PO Last administered on 04/01/17 09: 22; Admin Dose 180 MG; Start 03/31/17 at 11:00 Amiodarone HCl (Cordarone) 200 mg BID PO Last administered on 04/01/17 09:17 ; Admin Dose 200 MG; Start 03/31/17 at 21:00 KATHE TERRY MD Apr 01, 2017 16:41
--- NOTE | 2017-04-01 18:13 | CONS ---
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 03/31/2017 Paroxysmal atrial fibrillation - now back in sinus rhythm, CHADS2 score of 2 ( age>75, hypertension) Nausea and vomiting Hypokalemia and hypomagnesemia - replaced Hyponatremia - resolved Hypertension Dyslipidemia Panhypopituitarism, secondary to pituitary adenoma removal - on thyroid replacement with normal free T4 of 1.56, also on hydrocortisone Leukocytosis and lactic acidosis - rule out infection Recommendations: -continue amiodarone 400mg TID -continue diltiazem 180mg daily -follow up electrophysiology, resume on Eliquis 5mg BID for atrial fibrillation thromboembolic prophylaxis when able to post-procedure -continue atorvastatin 20mg daily Problems: Consultation Date/Type/Reason Admit Date/Time Mar 27, 2017 at 14:06 Type of Consultation: Cardiology 24 HR Interval Summary Free Text/Dictation Status post permanent pacemaker implantation yesterday. Doing well post-procedure. Normal sinus rhythm on telemetry. Detailed Summary Additional Comments 14 point review of systems without changes. Exam/Review of Systems Vital Signs Vitals Vital Signs Date Time Temp Pulse Resp B/P Pulse Ox O2 Delivery O2 Flow Rate FiO2 04/01/17 16:05 81 04/01/17 15:43 98.1 17 105/55 97 04/01/17 08:00 Nasal Cannula 2.0 Intake and Output 03/31/17 03/31/17 04/01/17 15:00 23:00 07:00 Intake Total 500 ml 700 ml 1150 ml Output Total 20 ml 1200 ml Balance 480 ml -500 ml 1150 ml Exam Constitutional: No distress Psych: nl mood/affect, no complaints Head: atraumatic, normocephalic Eyes: nl conjunctiva, nl lids ENMT: nl external ears & nose, nl nasal mucosa & septum Neck: non-tender, supple, No jvd Respiratory: clear to auscultation, normal air movement Cardiovascular: regular rate and rhythm Gastrointestinal: non-tender, soft Musculoskeletal: nl extremities to inspection Extremities: No clubbing, No cyanosis, No edema Neurological: No nl mental status, No nl speech Results Result Diagram: 12/11/17 0712 12/11/17 0712 Results 24 hrs Laboratory Tests Test 04/01/17 07:12 04/01/17 08:46 White Blood Count 10.0 Red Blood Count 3.54 L Hemoglobin 10.5 L Hematocrit 30.9 L Mean Corpuscular Volume 87.3 Mean Corpuscular Hemoglobin 29.7 Mean Corpuscular Hemoglobin Concent 34.0 Red Cell Distribution Width 13.5 Platelet Count 165 Mean Platelet Volume 9.4 Neutrophils % 89.3 H Lymphocytes % 3.5 L Monocytes % 6.7 Eosinophils % 0.0 Basophils % 0.1 Nucleated Red Blood Cells % 0.0 Neutrophils # 8.9 H Lymphocytes # 0.4 L Monocytes # 0.7 Eosinophils # 0.0 Basophils # 0.0 Nucleated Red Blood Cells # 0.0 Sodium Level 139 Potassium Level 4.0 Chloride Level 105 Carbon Dioxide Level 30 Anion Gap 8 Blood Urea Nitrogen 7 Creatinine 0.69 Glucose Level 152 Calcium Level 7.8 L Lab Scanned Report REFERENCE LAB Medications Medications Current Medications Acetaminophen (Tylenol Tab) 650 mg Q6H PRN PO PAIN LEVEL 1-3 OR FEVER; Start 03/27/17 at 14:30 Acetaminophen/ Hydrocodone Bitart ([place] (5/325)) 1 tab Q6H PRN PO MODERATE PAIN LEVEL 4-6; Start 03/27/17 at 14:30 Morphine Sulfate (morphine) 2 mg Q4H PRN IV SEVERE PAIN LEVEL 7-10; Start 03/27 at 14:30 Docusate Sodium (Colace) 100 mg Q12H PRN PO CONSTIPATION; Start 03/27/17 at 14: 30 Magnesium Hydroxide (Milk Of Mag) 30 ml DAILY PRN PO CONSTIPATION; Start at 14:30 Sodium Biphosphate/ Sodium Phosphate (Fleet Enema) 133 ml DAILY PRN OR CONSTIPATION; Start 03/27/17 at 14:30 Lorazepam (Ativan) 0.5 mg Q6H PRN IV ANXIETY; Start 03/27/17 at 14:30 Hydralazine HCl (Apresoline) 10 mg Q6H PRN IV ELEVATED BLOOD PRESSURE; Start 03/27/17 at 14:30 Clonidine (Catapres) 0.1 mg Q6H PRN PO ELEVATED BLOOD PRESSURE; Start 03/27/17 at 14:30 Nitroglycerin (Nitroglycerin (Sl Tab) 0.4 Mg) 1 tab Q5M PRN SL ANGINA; Start 03/27/17 at 14:30 Atorvastatin Calcium (Lipitor) 20 mg QHS PO Last administered on 03/31/17 20: 44; Admin Dose 20 MG; Start 03/27/17 at 21:00 Hydrocortisone (Cortef) 20 mg QAM PO Last administered on 04/01/17 09:16; Admin Dose 20 MG; Start 03/28/17 at 09:00 Trimethobenzamide HCl 200 mg 200 mg Q6H PRN IM NAUSEA AND/OR VOMITING Last administered on 03/29/17 11:41; Admin Dose 200 MG; Start 03/28/17 at 10:00 Ondansetron HCl/ Sodium Chloride (Zofran Inj/NS) 54 ml @ 216 mls/hr Q6H PRN IV NAUSEA AND/OR VOMITING; Start 03/28/17 at 11:00 Apixaban (Eliquis) 5 mg BID PO Last administered on 03/30/17 08:59; Admin Dose 5 MG; Start 03/28/17 at 21:00; Status Future Hold Diltiazem HCl (Cardizem Cd) 180 mg DAILY PO Last administered on 04/01/17 09: 22; Admin Dose 180 MG; Start 03/31/17 at 11:00 Amiodarone HCl (Cordarone) 200 mg BID PO Last administered on 04/01/17 09:17 ; Admin Dose 200 MG; Start 03/31/17 at 21:00 CHRISTIANNE BENAVIDES MD Apr 01, 2017 18:13
[2017-04-01] MEDS: ATORVASTATIN 20 MG TAB PO SCH (21:23)
[2017-04-02 02:21] VITALS: BP 128/75; RESP 18
[2017-04-02 05:00] VITALS: BP 117/56; PULSE 83; RESP 18
[2017-04-02] MEDS: LEVOTHYROXINE 100 MCG TAB PO SCH (05:40)
[2017-04-02] MEDS: CEPASTAT LOZENGE MT PRN ×2 (05:53→21:55)
[2017-04-02 06:13] LABS: BASOPHILS % 0.2 % (0.0-2.0); EOSINOPHILS % 0.2 % (0.0-7.0); HEMATOCRIT 28.4 % (37.0-47.0); LYMPHOCYTES # 0.7 10^3/ul (0.8-2.9); LYMPHOCYTES % 5.6 % (15.0-51.0); MEAN CORPUSCULAR HEMOGLOBIN 30.7 pg (29.0-33.0); MEAN CORPUSCULAR HGB CONC 35.2 g/dl (32.0-37.0); MEAN CORPUSCULAR VOLUME 87.1 fl (82.0-101.0); MEAN PLATELET VOLUME 9.4 fl (7.4-10.4); MONOCYTES % 7.3 % (0.0-11.0); NEUTROPHIL # 11.2 10^3/ul (1.6-7.5); NEUTROPHILS % 86.1 % (39.0-77.0); PLATELET COUNT 185 10^3/UL (140-415); RED BLOOD COUNT 3.26 10^6/ul (4.20-5.40); RED CELL DISTRIBUTION WIDTH 13.7 % (11.5-14.5)
[2017-04-02 06:28] LABS: CALCIUM 7.9 mg/dl (8.4-10.2); CREATININE 0.77 mg/dl (0.44-1.00); POTASSIUM 3.4 mmol/L (3.5-5.1)
[2017-04-02 07:40] VITALS: BP 133/64; RESP 20
[2017-04-02] MEDS: HYDROCORTISONE 5 MG TAB PO SCH (08:10)
[2017-04-02] MEDS: AMIODARONE 200 MG TAB PO SCH ×2 (08:11→19:57)
[2017-04-02] MEDS: DILTIAZEM (CD) 180 MG CAP PO SCH (08:11)
--- NOTE | 2017-04-02 13:01 | PN ---
Date/Time of Note Date/Time of Note DATE: 04/02/17 TIME: 13:00 Assessment/Plan VTE Prophylaxis VTE Prophylaxis Intervention: SCD's Lines/Catheters [facility] Saline Lock Urinary Cath still in place: No Assessment/Plan Assessment/Plan 88 yo F with pAF, panhypopituitarism presented with weakness 2/2 tachy-farzad syndrome. sp PM placement 12.. #tachy farzad sx, hx pAF -sp PM placement and device eval by rep -resume Eliquis ([id number] >2 thus full ATC indicated) -cont current BP meds/HR meds (amio and dilt) #endo/panhypopituitarism: -cont home steroids -ft4 wnl. cont synthroid dose #HL: cont statin #prophx: DVT dispo: needs PT/OT evals. CM cs for sub acute rehab Subjective 24 Hr Interval Summary Free Text/Dictation feels ok. amenable to going to rehab Exam/Review of Systems Vital Signs Vitals Vital Signs Date Time Temp Pulse Resp B/P Pulse Ox O2 Delivery O2 Flow Rate FiO2 04/02/17 07:40 98.7 85 20 133/64 93 04/02/17 05:00 Room Air 04/01/17 08:00 2.0 Intake and Output 04/01/17 04/01/17 04/02/17 15:00 23:00 07:00 Intake Total 850 ml 900 ml Output Total 750 ml 820 ml Balance 100 ml 80 ml Exam nad no mrg device site c/d/i no rashes no edema Results Result Diagram: 04/02/17 0446 04/02/17 0446 Results 24 hrs Laboratory Tests Test 04/02/17 04:46 White Blood Count 13.0 #H Red Blood Count 3.26 L Hemoglobin 10.0 L Hematocrit 28.4 L Mean Corpuscular Volume 87.1 Mean Corpuscular Hemoglobin 30.7 Mean Corpuscular Hemoglobin Concent 35.2 Red Cell Distribution Width 13.7 Platelet Count 185 Mean Platelet Volume 9.4 Neutrophils % 86.1 H Lymphocytes % 5.6 L Monocytes % 7.3 Eosinophils % 0.2 Basophils % 0.2 Nucleated Red Blood Cells % 0.0 Neutrophils # 11.2 H Lymphocytes # 0.7 L Monocytes # 1.0 H Eosinophils # 0.0 Basophils # 0.0 Nucleated Red Blood Cells # 0.0 Sodium Level 139 Potassium Level 3.4 L Chloride Level 106 Carbon Dioxide Level 29 Anion Gap 7 L Blood Urea Nitrogen 13 Creatinine 0.77 Glucose Level 107 # Calcium Level 7.9 L Medications Medications Current Medications Acetaminophen (Tylenol Tab) 650 mg Q6H PRN PO PAIN LEVEL 1-3 OR FEVER; Start 03/27/17 at 14:30 Acetaminophen/ Hydrocodone Bitart ([place] (5/325)) 1 tab Q6H PRN PO MODERATE PAIN LEVEL 4-6; Start 03/27/17 at 14:30 Morphine Sulfate (morphine) 2 mg Q4H PRN IV SEVERE PAIN LEVEL 7-10; Start 03/27 at 14:30 Docusate Sodium (Colace) 100 mg Q12H PRN PO CONSTIPATION; Start 03/27/17 at 14: 30 Magnesium Hydroxide (Milk Of Mag) 30 ml DAILY PRN PO CONSTIPATION; Start at 14:30 Sodium Biphosphate/ Sodium Phosphate (Fleet Enema) 133 ml DAILY PRN [place] CONSTIPATION; Start 03/27/17 at 14:30 Lorazepam (Ativan) 0.5 mg Q6H PRN IV ANXIETY; Start 03/27/17 at 14:30 Hydralazine HCl (Apresoline) 10 mg Q6H PRN IV ELEVATED BLOOD PRESSURE; Start 03/27/17 at 14:30 Clonidine (Catapres) 0.1 mg Q6H PRN PO ELEVATED BLOOD PRESSURE; Start 03/27/17 at 14:30 Nitroglycerin (Nitroglycerin (Sl Tab) 0.4 Mg) 1 tab Q5M PRN SL ANGINA; Start 03/27/17 at 14:30 Atorvastatin Calcium (Lipitor) 20 mg QHS PO Last administered on 04/01/17 21: 23; Admin Dose 20 MG; Start 03/27/17 at 21:00 Hydrocortisone (Cortef) 20 mg QAM PO Last administered on 04/02/17 08:10; Admin Dose 20 MG; Start 03/28/17 at 09:00 Trimethobenzamide HCl 200 mg 200 mg Q6H PRN IM NAUSEA AND/OR VOMITING Last administered on 03/29/17 11:41; Admin Dose 200 MG; Start 03/28/17 at 10:00 Ondansetron HCl/ Sodium Chloride (Zofran Inj/NS) 54 ml @ 216 mls/hr Q6H PRN IV NAUSEA AND/OR VOMITING; Start 03/28/17 at 11:00 Apixaban (Eliquis) 5 mg BID PO Last administered on 03/30/17 08:59; Admin Dose 5 MG; Start 03/28/17 at 21:00; Status Future hold Diltiazem HCl (Cardizem Cd) 180 mg DAILY PO Last administered on 04/02/17 08: 11; Admin Dose 180 MG; Start 03/31/17 at 11:00 Amiodarone HCl (Cordarone) 200 mg BID PO Last administered on 04/02/17 08:11 ; Admin Dose 200 MG; Start 03/31/17 at 21:00 Phenol (Cepastat Lozenge) 1 lozenge Q1H PRN MT itchy throat Last administered on 04/02/17 05:53; Admin Dose 1 LOZENGE; Start 04/02/17 at 06:00 KATHE TERRY MD Apr 02, 2017 13:01
--- NOTE | 2017-04-02 14:28 | RADRPT ---
Vent Rate: 97 bpm RR Interval: 0 msec [place] Interval: 174 msec QRS Duration: 92 msec QT Interval: 414 msec QTC Interval: 525 msec P-R-T [place]: 57 - 72 - 101 degrees Sinus rhythm with premature supraventricular complexes ST amp; T wave abnormality, consider inferolateral ischemia Prolonged QT Abnormal ECG Electronically Signed By: Van Hall [id number]
[2017-04-02 15:53] VITALS: BP 148/67; RESP 18
--- NOTE | 2017-04-02 16:49 | CONS ---
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 03/31/2017 Paroxysmal atrial fibrillation - now back in sinus rhythm, CHADS2 score of 2 ( age>75, hypertension) Nausea and vomiting Hypokalemia and hypomagnesemia - replaced Hyponatremia - resolved Hypertension Dyslipidemia Panhypopituitarism, secondary to pituitary adenoma removal - on thyroid replacement with normal free T4 of 1.56, also on hydrocortisone Leukocytosis and lactic acidosis - rule out infection Recommendations: -has been resumed on Eliquis -continue amiodarone 200mg BID -continue diltiazem 180mg daily -continue atorvastatin 20mg daily -discharge planning Problems: Consultation Date/Type/Reason Admit Date/Time Mar 27, 2017 at 14:06 Type of Consultation: Cardiology 24 HR Interval Summary Free Text/Dictation No acute events. Detailed Summary Additional Comments 14 point review of systems without changes. Exam/Review of Systems Vital Signs Vitals Vital Signs Date Time Temp Pulse Resp B/P Pulse Ox O2 Delivery O2 Flow Rate FiO2 04/02/17 15:53 98.4 88 18 148/67 95 04/02/17 05:00 Room Air 04/01/17 08:00 2.0 Intake and Output 04/01/17 04/01/17 04/02/17 15:00 23:00 07:00 Intake Total 850 ml 900 ml Output Total 750 ml 820 ml Balance 100 ml 80 ml Exam Constitutional: No distress Psych: nl mood/affect, no complaints Head: atraumatic, normocephalic Eyes: nl conjunctiva, nl lids ENMT: nl external ears & nose, nl nasal mucosa & septum Neck: non-tender, supple, No jvd Respiratory: clear to auscultation, normal air movement Cardiovascular: regular rate and rhythm Gastrointestinal: non-tender, soft Musculoskeletal: nl extremities to inspection Extremities: No clubbing, No cyanosis, No edema Neurological: No nl mental status, No nl speech Results Result Diagram: 04/02/17 0446 04/02/176 Results 24 hrs Laboratory Tests Test 04/02/17 04:46 White Blood Count 13.0 #H Red Blood Count 3.26 L Hemoglobin 10.0 L Hematocrit 28.4 L Mean Corpuscular Volume 87.1 Mean Corpuscular Hemoglobin 30.7 Mean Corpuscular Hemoglobin Concent 35.2 Red Cell Distribution Width 13.7 Platelet Count 185 Mean Platelet Volume 9.4 Neutrophils % 86.1 H Lymphocytes % 5.6 L Monocytes % 7.3 Eosinophils % 0.2 Basophils % 0.2 Nucleated Red Blood Cells % 0.0 Neutrophils # 11.2 H Lymphocytes # 0.7 L Monocytes # 1.0 H Eosinophils # 0.0 Basophils # 0.0 Nucleated Red Blood Cells # 0.0 Sodium Level 139 Potassium Level 3.4 L Chloride Level 106 Carbon Dioxide Level 29 Anion Gap 7 L Blood Urea Nitrogen 13 Creatinine 0.77 Glucose Level 107 # Calcium Level 7.9 L Medications Medications Current Medications Acetaminophen (Tylenol Tab) 650 mg Q6H PRN PO PAIN LEVEL 1-3 OR FEVER; Start 03/27/17 at 14:30 Acetaminophen/ Hydrocodone Bitart ([place] (5/325)) 1 tab Q6H PRN PO MODERATE PAIN LEVEL 4-6; Start 03/27/17 at 14:30 Morphine Sulfate (morphine) 2 mg Q4H PRN IV SEVERE PAIN LEVEL 7-10; Start 03/27 at 14:30 Docusate Sodium (Colace) 100 mg Q12H PRN PO CONSTIPATION; Start 03/27/17 at 14: 30 Magnesium Hydroxide (Milk Of Mag) 30 ml DAILY PRN PO CONSTIPATION; Start at 14:30 Sodium Biphosphate/ Sodium Phosphate (Fleet Enema) 133 ml DAILY PRN RI CONSTIPATION; Start 03/27/17 at 14:30 Lorazepam (Ativan) 0.5 mg Q6H PRN IV ANXIETY; Start 03/27/17 at 14:30 Hydralazine HCl (Apresoline) 10 mg Q6H PRN IV ELEVATED BLOOD PRESSURE; Start 03/27/17 at 14:30 Clonidine (Catapres) 0.1 mg Q6H PRN PO ELEVATED BLOOD PRESSURE; Start 03/27/17 at 14:30 Nitroglycerin (Nitroglycerin (Sl Tab) 0.4 Mg) 1 tab Q5M PRN SL ANGINA; Start 03/27/17 at 14:30 Atorvastatin Calcium (Lipitor) 20 mg QHS PO Last administered on 04/01/17t 21: 23; Admin Dose 20 MG; Start 03/27/17 at 21:00 Hydrocortisone (Cortef) 20 mg QAM PO Last administered on 04/02/17 08:10; Admin Dose 20 MG; Start 03/28/17 at 09:00 Trimethobenzamide HCl 200 mg 200 mg Q6H PRN IM NAUSEA AND/OR VOMITING Last administered on 03/29/17 11:41; Admin Dose 200 MG; Start 03/28/17 at 10:00 Ondansetron HCl/ Sodium Chloride (Zofran Inj/NS) 54 ml @ 216 mls/hr Q6H PRN IV NAUSEA AND/OR VOMITING; Start 03/28/17 at 11:00 Apixaban (Eliquis) 5 mg BID PO Last administered on 03/30/17 08:59; Admin Dose 5 MG; Start 03/28/17 at 21:00; Status Future hold Diltiazem HCl (Cardizem Cd) 180 mg DAILY PO Last administered on 04/02/17 08: 11; Admin Dose 180 MG; Start 03/31/17 at 11:00 Amiodarone HCl (Cordarone) 200 mg BID PO Last administered on 04/02/17 08:11 ; Admin Dose 200 MG; Start 03/31/17 at 21:00 Phenol (Cepastat Lozenge) 1 lozenge Q1H PRN MT itchy throat Last administered on 04/02/17 05:53; Admin Dose 1 LOZENGE; Start 04/02/17 at 06:00 CHRISTIANNE BENAVIDES MD Apr 02, 2017 16:49
[2017-04-02] MEDS: ATORVASTATIN 20 MG TAB PO SCH (19:56)
[2017-04-02] MEDS: APIXABAN 5 MG TABLET PO SCH (19:57)
[2017-04-02 20:56] VITALS: BP 131/60; RESP 18
[2017-04-03 01:56] VITALS: BP 124/62; RESP 19
[2017-04-03 05:07] LABS: BASOPHIL # 0.1 10^3/ul (0.0-0.1); BASOPHILS % 0.4 % (0.0-2.0); EOSINOPHILS # 0.4 10^3/ul (0.0-0.5); HEMATOCRIT 32.9 % (37.0-47.0); HEMOGLOBIN 11.1 g/dl (12.0-16.0); LYMPHOCYTES # 1.2 10^3/ul (0.8-2.9); LYMPHOCYTES % 8.3 % (15.0-51.0); MEAN CORPUSCULAR HEMOGLOBIN 29.7 pg (29.0-33.0); MEAN CORPUSCULAR HGB CONC 33.7 g/dl (32.0-37.0); MEAN PLATELET VOLUME 9.1 fl (7.4-10.4); MONOCYTE # 1.1 10^3/ul (0.3-0.9); MONOCYTES % 7.9 % (0.0-11.0); NEUTROPHIL # 11.3 10^3/ul (1.6-7.5); NEUTROPHILS % 79.6 % (39.0-77.0); NUCLEATED RED BLOOD CELLS% 0.2 /100WBC (0.0-0.0); PLATELET COUNT 216 10^3/UL (140-415); RED BLOOD COUNT 3.74 10^6/ul (4.20-5.40); WHITE BLOOD COUNT 14.2 10^3/ul (4.8-10.8)
[2017-04-03 05:29] LABS: CALCIUM 8.1 mg/dl (8.4-10.2); CREATININE 0.79 mg/dl (0.44-1.00); POTASSIUM 3.3 mmol/L (3.5-5.1)
[2017-04-03] MEDS: CEPASTAT LOZENGE MT PRN (05:48)
[2017-04-03] MEDS: LEVOTHYROXINE 100 MCG TAB PO SCH (05:48)
[2017-04-03 07:29] VITALS: BP 159/72; RESP 20
[2017-04-03] MEDS: DILTIAZEM (CD) 180 MG CAP PO SCH (08:36)
[2017-04-03] MEDS: HYDROCORTISONE 5 MG TAB PO SCH (08:36)
[2017-04-03] MEDS: AMIODARONE 200 MG TAB PO SCH (08:37)
[2017-04-03] MEDS: APIXABAN 5 MG TABLET PO SCH (08:41)
--- NOTE | 2017-04-03 09:23 | DS ---
Date/Time of Note Date/Time of Note DATE: 04/03/17 TIME: 09:21 Discharge Summary Admission/Discharge Info Admit Date/Time Mar 27, 2017 at 14:06 Discharge Date/Time Discharge Diagnosis Sick sinus syndrome with tachy-farzad syndrome, paroxysmal AFib, panhypopituitarism (POA),hyperlipidemia (POA), hypertension (POA) Patient Condition: Good Consults general cardiology and EP cardiology Procedures 12.10: pacemaker implant 12.6 TTE Conclusions 1. The left ventricle is normal in size and systolic function. 2. Estimated left ventricular ejection fraction of 65-70%. 3. Moderate concentric left ventricular hypertrophy. 4. Borderline to mild aortic stenosis. Hx of Present Illness An 86-year-old female, past medical history based on records of prior kidney injury, high cholesterol, hepatitis A, panhypopituitarism who apparently woke up this morning, having some nausea symptoms. She also vomited 2- 3 times, non bloody and non bili. She has been feeling weak overall with some myalgias and also a runny nose. No chest pain or shortness of breath. No fevers or chills. No lightheadedness or dizziness or loss of consciousness. No abdominal pain. No dysuria. No diarrhea or constipation. When she came into the ER today she had some labs performed and her sodium was found to be low at 126 and given overall weakness symptoms, it felt like she needed to be admitted for some fluids. Hospital Course Pt admitted with nausea and vomiting. Admit labs with electrolyte derangement. Shortly after admission pt went into AFib with RVR requiring dilt drip, changed to amio drip. Tele notable for sinus pauses. Pt seen by EP escalator attendant who advised PM placement for SSS/tachy farzad syndrome. Pt underwent PM placement 12.10. Post procedure course uncomplicated. Of note, given pt's pAF and CHADS2 score of 2, cardiology advised director long term care full ATC with Eliquis. Changes from admit meds: given electrolyte derangement on admission pt's home dieretic was stopped given her SSS BB was stopped prior to PM placement and not resumed BP regimen changed from dieretic/ARB and bb to ccb. Pt started on amio for pAF I personally reviewed all of this with the PCP's office and faxed them a copy of this dc summary prior to discharge Home Meds Reported Medications Losartan-Hydrochlorothiazide (Losartan-HCTZ) 100-25 Mg Tab, 1 TAB PO DAILY, TAB 03/27/17 Atorvastatin Calcium* (Atorvastatin Calcium*) 20 Mg Tablet, 20 MG PO QHS, #30 TAB 03/27/17 Pantoprazole* (Pantoprazole*) 40 Mg Tablet.dr, 40 MG PO AC BREAKFAST, TAB 03/27/17 Levothyroxine Sodium* (Levothyroxine Sodium*) 100 Mcg Tablet, 100 MCG PO BEFORE BREAKFAST, #30 TAB 03/27/17 Hydrocortisone* (Cortef*) 20 Mg Tablet, 20 MG PO QAM, #60 TAB 03/27/17 Metoprolol Tartrate* (Lopressor*) 50 Mg Tab, 50 MG PO BID, #60 TAB 03/27/17 Discontinued Reported Medications Atorvastatin (Lipitor) 10 Mg Tablet 05/10/09 Hydrocortisone* (Cortef*) 5 Mg Tab 05/10/09 Levothyroxine Sodium* (Levoxyl*) 25 Mcg Tablet 05/10/09 Follow-up Plan EP within 2 weeks General cardiology within 4 weeks PCP within [address] Chito Chester p [phone] f [phone] Time spent on discharge: > 30 minutes Pending Labs Laboratory Tests Test 04/03/17 04:30 White Blood Count 14.210^3/ul (4.8-10.8) Red Blood Count 3.7410^6/ul (4.20-5.40) Hemoglobin 11.1g/dl (12.0-16.0) Hematocrit 32.9% (37.0-47.0) Mean Corpuscular Volume 88.0fl (82.0-101.0) Mean Corpuscular Hemoglobin 29.7pg (29.0-33.0) Mean Corpuscular Hemoglobin Concent 33.7g/dl (32.0-37.0) Red Cell Distribution Width 14.0% (11.5-14.5) Platelet Count 84547^3/UL (140-415) Mean Platelet Volume 9.1fl (7.4-10.4) Neutrophils % 79.6% (39.0-77.0) Lymphocytes % 8.3% (15.0-51.0) Monocytes % 7.9% (0.0-11.0) Eosinophils % 3.0% (0.0-7.0) Basophils % 0.4% (0.0-2.0) Nucleated Red Blood Cells % 0.2/100WBC (0.0-0.0) Neutrophils # 11.310^3/ul (1.6-7.5) Lymphocytes # 1.210^3/ul (0.8-2.9) Monocytes # 1.110^3/ul (0.3-0.9) Eosinophils # 0.410^3/ul (0.0-0.5) Basophils # 0.110^3/ul (0.0-0.1) Nucleated Red Blood Cells # 0.010^3/ul (0.0-0.0) Sodium Level 140mmol/L (135-144) Potassium Level 3.3mmol/L (3.5-5.1) Chloride Level 105mmol/L (97-110) Carbon Dioxide Level 30mmol/L (21-31) Anion Gap 8 (8-16) Blood Urea Nitrogen 14mg/dl (7-20) Creatinine 0.79mg/dl (0.44-1.00) Glucose Level 88mg/dl (70-220) Calcium Level 8.1mg/dl (8.4-10.2) Copies To: CC: CHRISTIANNE BENAVIDES MD; VITO CORONA MD, ELLEN MD Apr 03, 2017 09:23 Copies To: CC: CHRISTIANNE BENAVIDES MD; VITO CORONA MD, ELLEN MD Apr 03, 2017 09:23
--- NOTE | 2017-04-03 09:44 | PDOCDIS ---
Discharge Instructions DIAGNOSIS Discharge Diagnosis Sick sinus syndrome with tachy-farzad syndrome, paroxysmal AFib, panhypopituitarism (POA),hyperlipidemia (POA), hypertension (POA) CONDITION Patient Condition: Good HOME CARE INSTRUCTIONS: Special Diet: regular FOLLOW UP/APPOINTMENTS Follow-up Plan as we discussed, being on blood thinners can increase your risk of bleeding-- the body areas of greatest concern are near your brain and your intestines. If you hit your head, have any rectal bleeding, or notice any other bleeding that does not stop please present to the nearest emergency room immediately for further management Follow up with the transportation analyst (pacemaker doctor) within [address] Clemons Office Address [address] [place] [address] Office Follow up with the general carpet winder within [address] Caceres Office Address [address] [place] [address] Office Follow up with your regular doctor (Dr Chester) within 2 weeks phone: [phone] KATHE TERRY MD Apr 03, 2017 09:44
[2017-04-03] MEDS ORDERED: POTASSIUM CHLORIDE (SR) 20 MEQ TAB PO STA (10:15)
[2017-04-03 14:02] VITALS: BP 144/60; RESP 20
== END 2017-04-03 19:35 | DRG 243 ==
LOC: E/R 09:34 → MS4 14:06 → MS1 04-01 19:35
PROVIDERS: ADMIT Hospitalist; ATTEND Hospitalist
PROC: 4A033R1 Measurement of Arterial Saturation, Peripheral, Percutaneous Approach (ICD-10-PCS; 2017-03-28)
PROC: 02HK3JZ Insertion of Pacemaker Lead into Right Ventricle, Percutaneous Approach (ICD-10-PCS; 2017-03-31)
PROC: 02H63JZ Insertion of Pacemaker Lead into Right Atrium, Percutaneous Approach (ICD-10-PCS; 2017-03-31)
PROC: 0JH606Z Insertion of Pacemaker, Dual Chamber into Chest Subcutaneous Tissue and Fascia, Open Approach (ICD-10-PCS; principal; 2017-03-31 08:00)
DX: I49.5 Sick sinus syndrome (principal); E87.2 Acidosis; E86.0 Dehydration; I48.0 Paroxysmal atrial fibrillation; I47.1 Supraventricular tachycardia; E23.0 Hypopituitarism; I10 Essential (primary) hypertension; E87.1 Hypo-osmolality and hyponatremia; E83.42 Hypomagnesemia; D72.829 Elevated white blood cell count, unspecified; E78.5 Hyperlipidemia, unspecified; E03.9 Hypothyroidism, unspecified; E87.6 Hypokalemia
CPT/HCPCS: 36600; 71010; 74000; 80048; 80053; 80061; 81001; 82803; 82962; 83036; 83605; 83690; 83735; 83880; 84100; 84132; 84439; 84443; 84484; 85025; 85610; 85730; 87040; 87086; 87275; 87276; 87279; 87280; 87400; 92526; 92610; 93005; 93306; 96374; 96375; 96376; 97116; 97162; 97166; 97530; 97535; J0282; J0690; J1100; J1644; J1885; J2250; J2405; J2543; J3010; J3250; J3475; J3480; J7030; J7040; J7042; J7060; Q9967

== ENCOUNTER 2017-04-03 19:57 | Inpatient (IN) | payer MEDICARE ==
[~2017-04-03] VITALS: Ht 163.8 cm; Wt 83.4 kg
[~2017-04-03 19:57] MED LIST changes: -ATOR10TA23; +ATOR20TA38 PO; +HYDR20TA PO; -HYDR5TAB; +LEVO100T87 PO; -LEVO25TA50; +LOSA1TAB25 PO; +METO-429 PO; -METOPROLOL 5 MG INJ ONE; +PANT40TA4 PO
[2017-04-03 20:19] VITALS: Ht 163.8 cm; Wt 83.4 kg
[2017-04-03 20:30] VITALS: BP 135/60; RESP 18
[2017-04-03] MEDS ORDERED: ACETAMINOPHEN 325 MG TAB PO PRN (22:00)
[2017-04-03] MEDS ORDERED: MAGNESIUM HYDROXIDE 30ML CUP PO PRN (22:00)
[2017-04-03] MEDS: ATORVASTATIN 20 MG TAB PO SCH (22:00)
[2017-04-03] MEDS ORDERED: DOCUSATE SODIUM 100 MG CAP PO PRN (22:00)
[2017-04-03] MEDS: AMIODARONE 200 MG TAB PO SCH (22:01)
[2017-04-04 01:00] LABS: ADD UMIC YES; UR ASCORBIC ACID NEGATIVE (NEGATIVE); UR BACTERIA FEW /HPF (NONE SEEN); UR BILIRUBIN (Dip) NEGATIVE (NEGATIVE); UR BLOOD (Dip) 2+ mg/dL (NEGATIVE); UR CLARITY CLEAR (CLEAR); UR COLOR STRAW (YELLOW); UR GLUCOSE (Dip) NEGATIVE (NEGATIVE); UR KETONES (Dip) NEGATIVE (NEGATIVE); UR LEUKOCYTE ESTERASE (Dip) 3+ Leu/ul (NEGATIVE); UR NITRITE (Dip) NEGATIVE (NEGATIVE); UR RBC 11 /HPF (0-5); UR SPECIFIC GRAVITY (Dip) 1.009 (1.003-1.030); UR TOTAL PROTEIN (Dip) NEGATIVE (NEGATIVE); UR UROBILINOGEN (Dip) NEGATIVE (NEGATIVE)
[2017-04-04] MEDS: ALBUTEROL/IPRATROPIUM (NEB) 3 ML AMP HHN SCH ×6 (01:00→21:00)
[2017-04-04 02:03] VITALS: BP 130/65; RESP 18
[2017-04-04] MEDS: LEVOTHYROXINE 100 MCG TAB PO SCH (06:17)
[2017-04-04 06:41] LABS: BASOPHIL # 0.1 10^3/ul (0.0-0.1); BASOPHILS % 0.4 % (0.0-2.0); EOSINOPHILS # 0.6 10^3/ul (0.0-0.5); EOSINOPHILS % 4.4 % (0.0-7.0); HEMATOCRIT 31.3 % (37.0-47.0); HEMOGLOBIN 10.9 g/dl (12.0-16.0); LYMPHOCYTES # 1.6 10^3/ul (0.8-2.9); LYMPHOCYTES % 11.8 % (15.0-51.0); MEAN CORPUSCULAR HEMOGLOBIN 30.5 pg (29.0-33.0); MEAN CORPUSCULAR HGB CONC 34.8 g/dl (32.0-37.0); MEAN CORPUSCULAR VOLUME 87.7 fl (82.0-101.0); MONOCYTE # 1.2 10^3/ul (0.3-0.9); MONOCYTES % 9.1 % (0.0-11.0); NEUTROPHIL # 9.7 10^3/ul (1.6-7.5); NEUTROPHILS % 73.2 % (39.0-77.0); NUCLEATED RED BLOOD CELLS # 0.1 10^3/ul (0.0-0.0); NUCLEATED RED BLOOD CELLS% 0.4 /100WBC (0.0-0.0); PLATELET COUNT 216 10^3/UL (140-415); RED BLOOD COUNT 3.57 10^6/ul (4.20-5.40); RED CELL DISTRIBUTION WIDTH 14.2 % (11.5-14.5); WHITE BLOOD COUNT 13.2 10^3/ul (4.8-10.8)
[2017-04-04 07:30] VITALS: BP 126/57; RESP 18
[2017-04-04 07:48] LABS: CREATININE 0.66 mg/dl (0.44-1.00); POTASSIUM 3.5 mmol/L (3.5-5.1)
[2017-04-04 07:49] LABS: BILIRUBIN,INDIRECT 0.7 mg/dl (0-1.1); BILIRUBIN,TOTAL 0.7 mg/dl (0.2-1.3); CALCIUM 7.8 mg/dl (8.4-10.2)
[2017-04-04 07:50] LABS: ALBUMIN 2.7 g/dl (3.3-4.9); ALBUMIN/GLOBULIN RATIO 1.03; TOTAL PROTEIN 5.3 g/dl (6.1-8.1)
[2017-04-04] MEDS: HYDROCORTISONE 5 MG TAB PO SCH (09:03)
[2017-04-04] MEDS: ASPIRIN 325 MG TAB PO SCH (09:03)
[2017-04-04] MEDS: DILTIAZEM (CD) 180 MG CAP PO SCH (09:03)
[2017-04-04] MEDS: AMIODARONE 200 MG TAB PO SCH ×2 (09:04→20:41)
--- NOTE | 2017-04-04 10:51 | CONS ---
Date/Time of Note Date/Time of Note DATE: 04/04/17 TIME: 10:51 Assessment/Plan Assessment/Plan Chief Complaint/Hosp Course 86-year-old female who had workup for tachybradycardia syndrome with paroxysmal atrial fibrillation who also had undergone pacemaker placement is now transferred to ARU for rehabilitation. 1.Sick sinus syndrome with tachy-farzad syndrome. Currently stable. -Status post pacemaker placement on 03/31/2017. -Monitor. 2.Paroxysmal AFib WITH CHADS2 score of 2 -Continue amiodarone. Due to patient's increased fall risk, she refused to be on anticoagulation with Eliquis and recommendation was to continue aspirin 325 daily for anticoagulation. 3. Panhypopituitarism-status post surgery. -Monitor electrolyte level. 4.Hyperlipidemia -On statin. 5. Hypertension (POA) -Continue antihypertensives. 6. Bilateral pedal edema, likely lymphedema. Chronic. -.Will resume low-dose thiazide diuretics which she takes as outpatient. Will monitor electrolyte level closely. -We will also obtain a venous duplex to rule out DVT. 7. Positive UA with 3+ leukocyte esterase, WBC and bacteria. -We will start patient empirically on ceftriaxone and will follow up on culture. DVT prophylaxis: Aspirin 325. Patient with increased fall risk and refused anticoagulation with Eliquis. Continue with physical therapy/cardiac rehabilitation. Patient was seen in collaboration with . Approximately 60 minute was spent on this consultation. Problems: Consultation Date/Type/Reason Admit Date/Time Apr 03, 2017 at 19:57 Type of Consultation: Internal medicine Reason for Consultation Medical management Hx of Present Illness This is a 86-year-old female with a past medical history of hyperlipidemia, hepatitis A, hypertension, hypothyroidism, panhypopituitarism, who was admitted at [facility] and had cardiac workup done for sick sinus syndrome with tachy-bradycardia syndrome and paroxysmal atrial fibrillation. Patient had pacemaker placement on 03/31/2017. Postprocedure patient had uncomplicated recovery but she continued to have debility requiring further physical therapy. Patient was then accepted to acute rehabilitation unit. At my encounter with the patient, she denied nausea, vomiting, abdominal pain, palpitation, chest pain, dizziness, lightheadedness, fever, chills or other constitutional symptoms. Labs showed elevated WBC 13,200, hemoglobin 10.9, hematocrit 31.3, sodium 134. Her urinalysis was positive for 3+ leukocyte esterase, WBC and bacteria. Vital signs within acceptable range. A 12 point review of system was assessed and is negative other than what is mentioned in HPI. Past Medical History See HPI Past Surgical History See HPI Past Surgical Hx: no surgical history Social History Patient denied history of alcohol, smoking or illicit drug use. Smoking Status: Never smoker Exam/Review of Systems Vital Signs Vitals Vital Signs Date Time Temp Pulse Resp B/P Pulse Ox O2 Delivery O2 Flow Rate FiO2 04/04/17 07:30 98.0 83 18 126/57 92 04/04/17 04:39 21 Intake and Output 04/03/17 04/03/17 04/04/17 15:00 23:00 07:00 Intake Total 800 ml Balance 800 ml Exam General: Well developed,adequately built, not in any acute distress . HEENT: Normocephalic, Atraumatic, No laceration or hematoma; Eyes: PEERL, Conjunctiva clear, Anicteric sclera Neck: Supple without any lymphadenopathy, nontender, no JVD, no carotid bruits, trachea midline, no thyromegaly Cardiac: With pacemaker to left chest wall. S1, S2 auscultated, regular rhythm and rate, no mumurs or gallop Pulmonary: Normal respiratory effort. Chest clear to auscultation bilaterally, no adventitious breath sounds GI: Abdomen obese to inspection. Soft, non tender, non- distended, no masses, no rebound tenderness or guarding. Bowel sounds active on all four quadrants Genitourinary: Deferred Extremities:+ Pedal edema/lymphedema. Pulses [2+] bilaterally. Full ROM on all four extremities. No focal weakness appreciated. Neurologic: Alert to person, place, time, and situation. Affect appropriate, intact sensation. Skin: Clean,dry, and intact. No ecchymosis, no rashes, or lesions Results Result Diagram: 04/04/17 0618 04/04/17 0618 Results 24 hrs Laboratory Tests Test 04/03/17 23:45 04/04/17 06:18 Urine Color STRAW Urine Clarity CLEAR Urine pH 8.0 Urine Specific [place] 1.009 Urine Ketones NEGATIVE Urine Nitrite NEGATIVE Urine Bilirubin NEGATIVE Urine Urobilinogen NEGATIVE Urine Leukocyte Esterase 3+ H Urine Microscopic RBC 11 H Urine Microscopic WBC 15 H Urine Bacteria FEW A Urine Hemoglobin 2+ H Urine Glucose NEGATIVE Urine Total Protein NEGATIVE White Blood Count 13.2 H Red Blood Count 3.57 L Hemoglobin 10.9 L Hematocrit 31.3 L Mean Corpuscular Volume 87.7 Mean Corpuscular Hemoglobin 30.5 Mean Corpuscular Hemoglobin Concent 34.8 Red Cell Distribution Width 14.2 Platelet Count 216 Mean Platelet Volume 9.0 Neutrophils % 73.2 Lymphocytes % 11.8 L Monocytes % 9.1 Eosinophils % 4.4 Basophils % 0.4 Nucleated Red Blood Cells % 0.4 H Neutrophils # 9.7 H Lymphocytes # 1.6 Monocytes # 1.2 H Eosinophils # 0.6 H Basophils # 0.1 Nucleated Red Blood Cells # 0.1 H Sodium Level 134 L Potassium Level 3.5 Chloride Level 101 Carbon Dioxide Level 27 Anion Gap 10 Blood Urea Nitrogen 10 Creatinine 0.66 Glucose Level 80 Calcium Level 7.8 L Total Bilirubin 0.7 Direct Bilirubin 0.00 Indirect Bilirubin 0.7 Aspartate Amino Transf (AST/SGOT) 33 Alanine Aminotransferase (ALT/SGPT) 38 Alkaline Phosphatase 87 Total Protein 5.3 L Albumin 2.7 L Globulin 2.60 Albumin/Globulin Ratio 1.03 Medications Medications Current Medications Aspirin (Aspirin) 325 mg DAILY PO Last administered on 04/04/17 09:03; Admin Dose 325 MG; Start 04/04/17 at 09:00 Magnesium Hydroxide (Milk Of Mag) 30 ml DAILY PRN PO CONSTIPATION; Start 04/03 at 22:00 Atorvastatin Calcium (Lipitor) 20 mg DAILY@21 PO Last administered on 22:00; Admin Dose 20 MG; Start 04/03/17 at 21:30 Diltiazem HCl (Cardizem Cd) 180 mg DAILY PO Last administered on 04/04/17 09: 03; Admin Dose 180 MG; Start 04/04/17 at 09:00 Docusate Sodium (Colace) 100 mg Q12H PRN PO CONSTIPATION; Start 04/03/17 at 22 :00 Acetaminophen/ Hydrocodone Bitart ([place] (5/325)) 1 tab Q6H PRN PO PAIN; Start 04/03/17 at 22:00 Hydrocortisone (Cortef) 20 mg DAILY PO Last administered on 04/04/17 09:03; Admin Dose 20 MG; Start 04/04/17 at 09:00 Acetaminophen (Tylenol Tab) 650 mg Q6H PRN PO PAIN AND OR ELEVATED TEMP; Start 04/03/17 at 22:00 Amiodarone HCl (Cordarone) 200 mg BID PO Last administered on 04/04/17t 09:04 ; Admin Dose 200 MG; Start 04/03/17 at 21:30 TONYA ENRIQUEZ NP Apr 04, 2017 10:51
[2017-04-04 14:00] VITALS: BP 123/58; RESP 18
--- NOTE | 2017-04-04 16:55 | CONS ---
DATE OF ADMISSION: 04/03/2017 DATE OF CONSULTATION: 04/04/2017 REHABILITATION POST ADMISSION PHYSICIAN EVALUATION REHABILITATION IMPAIRMENT CATEGORY: Debility secondary to cardiac arrhythmia, hypokalemia, and multiple electrolyte abnormalities. ACTIVE COMORBIDITIES: 1. 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 2. Hypertension. 3. Dyslipidemia. 4. Impairments in self-care and mobility. HISTORY OF PRESENT ILLNESS: The patient is a very pleasant 86-year-old right- handed female with a history of hypertension, dyslipidemia, and panhypopituitarism on thyroid replacement and hydrocortisone who was admitted with nausea and vomiting. The patient was noted to have significant electrolyte abnormalities with hyponatremia, hypomagnesemia, and hypokalemia, and also noted to have atrial fibrillation with rapid ventricular response. The patient ultimately underwent a cardiac pacemaker. The patient now noted to have significant impairments in self-care and mobility as compared to baseline, and has been cleared to transfer to the rehabilitation unit for comprehensive interdisciplinary rehab care. FUNCTIONAL HISTORY: Prior to recent events, she was independent in self-care tasks and mobility. Currently, she requires minimal to moderate assist for self -care and mobility tasks. I have reviewed the preadmission screen and the patient's current functional status is consistent with the preadmission screen. SOCIAL HISTORY: The patient lives at home alone and hopes to return there upon discharge. PAST MEDICAL HISTORY: 1. Hypertension. 2. Dyslipidemia. 3. Panhypopituitarism on thyroid replacement and hydrocortisone. 4. History of pituitary adenoma removal. CURRENT MEDICATIONS: 1. Albuterol inhaler. 2. Cordarone 200 mg p.o. b.i.d. 3. Eliquis 5 mg p.o. b.i.d. 4. Cardizem CD 180 p.o. daily. 5. Colace 100 mg q.12h. p.r.n. 6. [place] p.r.n. 7. Cortef 20 mg p.o. q.a.m. 8. Levothyroxine 100 mcg p.o. q.a.m. 9. Aspirin 325 p.o. daily. ALLERGIES: THE PATIENT WITH NO KNOWN DRUG ALLERGIES. PHYSICAL EXAMINATION: VITAL SIGNS: The patient is currently afebrile with stable vital signs. HEENT: Extraocular motions are intact. Oropharynx is clear. NECK: Supple. LUNGS: Clear anteriorly. CARDIAC: S1, S2. ABDOMEN: Soft, nontender, positive bowel sounds. NEUROLOGIC: She is awake and alert. She is oriented x3. She can follow simple 1-step commands. Cranial nerves appear grossly intact. She has antigravity strength in the right upper and bilateral lower. Her left upper extremity is in sling placement, but she has good distal epidemiology internship strength. PLAN: The patient has been admitted for comprehensive interdisciplinary acute rehab and is anticipated to tolerate 3 hours of daily therapy in divided doses for at least 5/7 days a week. The treatment plan will include: 1. Physical therapy to focus on bed mobility, transfers, and household ambulation with the goal of having the patient reach a standby assist level. 2. Occupational therapy to focus on hygiene, grooming, dressing, bathing, and toileting activities with the goal of having the patient reach standby assist level. 3. Rehabilitation nursing for carryover of therapeutic interventions, with the goal of continent of bowel and bladder, and the goal of pain adequately managed on oral medications. REHABILITATION BARRIER: Pain. INTERVENTION FOR BARRIER: Interdisciplinary approach. ESTIMATED LENGTH OF STAY: 10 days. DISPOSITION GOAL: Home. I acknowledge that I performed a full physical examination on this patient within 24 hours of admission to the rehabilitation unit and believe the patient is a good candidate for comprehensive interdisciplinary rehab care and is anticipated to make reasonable goals in a reasonable period of time as outlined above. Dictated By: KAYLEY DELANEY/MICAH Conf#: [id number] DID#: [id number] MTDD
--- NOTE | 2017-04-04 16:58 | RADRPT ---
PROCEDURE: Ultrasound of the bilateral lower extremity venous system. CLINICAL INDICATION: Bilateral leg pain and swelling, deep venous thrombosis TECHNIQUE: Hickman scale with and without compression, color doppler, spectral doppler of the venous system of the bilateral lower extremities was performed. Venous augmentation maneuvers were utilized . COMPARISON: No prior studies are available for comparison. FINDINGS: Right: Common femoral vein: Patent. Femoral vein: Patent. Popliteal vein: Patent. Calf veins: Patent. No soft tissue abnormalities are identified. Left: Common femoral vein: Patent. Femoral vein: Patent. Popliteal vein: Patent. Calf veins: Patent. No soft tissue abnormalities are identified. IMPRESSION: No evidence of a deep vein thrombosis within the bilateral lower extremities. RPTAT: AADD .Maurice Mathis MD, MD Date Time Electronically viewed and signed by .Maurice Mathis MD, on 04/04/2017 16:25 .B/
[2017-04-04] MEDS: HYDROCHLOROTHIAZIDE 12.5 MG CAP PO SCH (17:15)
[2017-04-04] MEDS: CEFTRIAXONE 1 GM/50 ML (PMX) 50 ML IVPB SCH (17:16)
[2017-04-04 20:00] VITALS: BP 107/58; RESP 18
[2017-04-04 20:12] LABS: FREE T3 1.63 pg/ml (2.77-5.27)
[2017-04-04 20:34] LABS: THYROID STIMULATING HORMONE < 0.015 MIU/L (0.465-4.680)
[2017-04-04] MEDS: ATORVASTATIN 20 MG TAB PO SCH (20:35)
[2017-04-05] VITALS (13 sets, daily range): BP systolic 73–128; BP diastolic 46–63; PULSE 95–120; RESP 18–20
[2017-04-05] MEDS: ALBUTEROL/IPRATROPIUM (NEB) 3 ML AMP HHN SCH ×4 (00:44→12:18)
[2017-04-05] MEDS: LEVOTHYROXINE 100 MCG TAB PO SCH (06:17)
[2017-04-05] MEDS: HYDROCODONE/APAP (5/325) TAB PO PRN (08:50)
[2017-04-05] MEDS: ASPIRIN 325 MG TAB PO SCH (08:50)
[2017-04-05] MEDS: HYDROCHLOROTHIAZIDE 12.5 MG CAP PO SCH (09:00)
--- NOTE | 2017-04-05 09:17 | CONS ---
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 1.Sick sinus syndrome with tachy-farzad syndrome. Currently stable. -Status post pacemaker placement on 03/31/2017. -Monitor. 2.Paroxysmal AFib WITH CHADS2 score of 2 -Continue amiodarone. Due to patient's increased fall risk, she refused to be on anticoagulation with Eliquis and recommendation was to continue aspirin 325 daily for anticoagulation. 3. Panhypopituitarism-status post surgery. -Monitor electrolyte level. 4.Hyperlipidemia -On statin. 5. Hypertension (POA) -Continue antihypertensives. 6. Bilateral pedal edema, likely lymphedema. Improving. Status: Chronic. -Continue low-dose thiazide diuretics which she takes as outpatient. Will monitor electrolyte level closely. -Negative DVT studies. 7. Positive UA with 3+ leukocyte esterase, WBC and bacteria. -Continue ceftriaxone and will follow up on culture. DVT prophylaxis: Aspirin 325. Patient with increased fall risk and refused anticoagulation with Eliquis. Continue with physical therapy/cardiac rehabilitation. Patient was seen in collaboration with . Problems: Consultation Date/Type/Reason Admit Date/Time Apr 03, 2017 at 19:57 Initial Consult Date Type of Consultation: Internal medicine 24 HR Interval Summary Free Text/Dictation Patient is doing well. No acute distress. Pedal edema improved. Exam/Review of Systems Vital Signs Vitals Vital Signs Date Time Temp Pulse Resp B/P Pulse Ox O2 Delivery O2 Flow Rate FiO2 04/05/17 02:00 98.7 82 18 122/63 95 04/05/17 00:44 2.0 04/04/17 13:30 21 Intake and Output 04/04/17 04/04/17 04/05/17 14:59 22:59 06:59 Intake Total 790 ml 850 ml Output Total 3 ml Balance 787 ml 850 ml Exam General: Well developed,adequately built, not in any acute distress . HEENT: Normocephalic, Atraumatic, No laceration or hematoma; Eyes: PEERL, Conjunctiva clear, Anicteric sclera Neck: Supple without any lymphadenopathy, nontender, no JVD, no carotid bruits, trachea midline, no thyromegaly Cardiac: With pacemaker to left chest wall. S1, S2 auscultated, regular rhythm and rate, no mumurs or gallop Pulmonary: Normal respiratory effort. Chest clear to auscultation bilaterally, no adventitious breath sounds GI: Abdomen obese to inspection. Soft, non tender, non- distended, no masses, no rebound tenderness or guarding. Bowel sounds active on all four quadrants Genitourinary: Deferred Extremities:+ Pedal edema/lymphedema. Pulses [2+] bilaterally. Full ROM on all four extremities. No focal weakness appreciated. Neurologic: Alert to person, place, time, and situation. Affect appropriate, intact sensation. Skin: Clean,dry, and intact. No ecchymosis, no rashes, or lesions Results Result Diagram: 04/04/1718 04/04/17 0618 Results 24 hrs Laboratory Tests Test 04/04/17 15:31 Thyroid Stimulating Hormone (TSH) < 0.015 L Free Thyroxine 1.65 Free Triiodothyronine (T3) pg/mL 1.63 L Medications Medications Current Medications Aspirin (Aspirin) 325 mg DAILY PO Last administered on 04/05/17 08:50; Admin Dose 325 MG; Start 04/04/17 at 09:00 Magnesium Hydroxide (Milk Of Mag) 30 ml DAILY PRN PO CONSTIPATION; Start 04/03 at 22:00 Atorvastatin Calcium (Lipitor) 20 mg DAILY@21 PO Last administered on 20:35; Admin Dose 20 MG; Start 04/03/17 at 21:30 Diltiazem HCl (Cardizem Cd) 180 mg DAILY PO Last administered on 04/04/17 09: 03; Admin Dose 180 MG; Start 04/04/17 at 09:00 Docusate Sodium (Colace) 100 mg Q12H PRN PO CONSTIPATION; Start 04/03/17 at 22 :00 Acetaminophen/ Hydrocodone Bitart ([place] (5/325)) 1 tab Q6H PRN PO PAIN Last administered on 04/05/17 08:50; Admin Dose 1 TAB; Start 04/03/17 at 22:00 Hydrocortisone (Cortef) 20 mg DAILY PO Last administered on 04/04/17 09:03; Admin Dose 20 MG; Start 04/04/17 at 09:00 Acetaminophen (Tylenol Tab) 650 mg Q6H PRN PO PAIN AND OR ELEVATED TEMP; Start 04/03/17 at 22:00 Amiodarone HCl 200 mg 200 mg BID PO Last administered on 04/04/17 20:41; Admin Dose 200 MG; Start 04/03/17 at 21:30 Ceftriaxone Sodium (Rocephin) 50 ml @ 100 mls/hr Q24H IVPB Last administered on 04/04/17 17:16; Admin Dose 100 MLS/HR; Start 04/04/17 at 16:30 Hydrochlorothiazide (Hydrochlorothiazide) 12.5 mg DAILY PO Last administered on 04/04/17 17:15; Admin Dose 12.5 MG; Start 04/04/17 at 16:00 TONYA ENRIQUEZ NP Apr 05, 2017 09:17
[2017-04-05] MEDS: HYDROCORTISONE 5 MG TAB PO SCH (09:34)
[2017-04-05] MEDS: DILTIAZEM (CD) 180 MG CAP PO SCH (09:35)
[2017-04-05] MEDS: AMIODARONE 200 MG TAB PO SCH ×2 (09:36→21:49)
--- NOTE | 2017-04-05 10:55 | CONS ---
Date/Time of Note Date/Time of Note DATE: 04/05/17 TIME: 10:54 Consult Date/Type/Reason Admit Date/Time Apr 03, 2017 at 19:57 Initial Consult Date Type of Consultation: Internal medicine Subjective In good spirits Objective pulm-cta min/mod assist Vital Signs Date Time Temp Pulse Resp B/P Pulse Ox O2 Delivery O2 Flow Rate FiO2 04/05/17 07:30 98.7 79 20 107/53 95 04/05/17 00:44 2.0 04/04/17 13:30 21 Intake and Output 04/04/17 04/04/17 04/05/17 14:59 22:59 06:59 Intake Total 790 ml 850 ml Output Total 3 ml Balance 787 ml 850 ml Results/Medications Result Diagram: 04/04/1718 04/04/17 0618 Results 24 hrs Laboratory Tests Test 04/04/17 15:31 Thyroid Stimulating Hormone (TSH) < 0.015 L Free Thyroxine 1.65 Free Triiodothyronine (T3) pg/mL 1.63 L Medications Current Medications Aspirin (Aspirin) 325 mg DAILY PO Last administered on 04/05/17 08:50; Admin Dose 325 MG; Start 04/04/17 at 09:00 Magnesium Hydroxide (Milk Of Mag) 30 ml DAILY PRN PO CONSTIPATION; Start 04/03 at 22:00 Atorvastatin Calcium (Lipitor) 20 mg DAILY@21 PO Last administered on 20:35; Admin Dose 20 MG; Start 04/03/17 at 21:30 Diltiazem HCl (Cardizem Cd) 180 mg DAILY PO Last administered on 04/05/17 09: 35; Admin Dose 180 MG; Start 04/04/17 at 09:00 Docusate Sodium (Colace) 100 mg Q12H PRN PO CONSTIPATION; Start 04/03/17 at 22 :00 Acetaminophen/ Hydrocodone Bitart ([place] (5/325)) 1 tab Q6H PRN PO PAIN Last administered on 04/05/17 08:50; Admin Dose 1 TAB; Start 04/03/17 at 22:00 Hydrocortisone (Cortef) 20 mg DAILY PO Last administered on 04/05/17 09:34; Admin Dose 20 MG; Start 04/04/17 at 09:00 Acetaminophen (Tylenol Tab) 650 mg Q6H PRN PO PAIN AND OR ELEVATED TEMP; Start 04/03/17 at 22:00 Amiodarone HCl 200 mg 200 mg BID PO Last administered on 04/05/17 09:36; Admin Dose 200 MG; Start 04/03/17 at 21:30 Ceftriaxone Sodium (Rocephin) 50 ml @ 100 mls/hr Q24H IVPB Last administered on 04/04/17 17:16; Admin Dose 100 MLS/HR; Start 04/04/17 at 16:30 Hydrochlorothiazide (Hydrochlorothiazide) 12.5 mg DAILY PO Last administered on 04/04/17 17:15; Admin Dose 12.5 MG; Start 04/04/17 at 16:00 Assessment/Plan Additional Assessment/Plan Rehab- Debility secondary to cardiac arrhythmia, hypokalemia, and multiple electrolyte abnormalities. 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 Hypertension. Dyslipidemia. KAYLEY MCKEON MD Apr 05, 2017 10:55
[2017-04-05 11:09] LABS: CALCIUM 8.1 mg/dl (8.4-10.2); CREATININE 0.9 mg/dl (0.44-1.00); POTASSIUM 3.3 mmol/L (3.5-5.1)
[2017-04-05] MEDS ORDERED: SOD CHLORIDE 0.9% 250 ML IV ONE (16:30)
[2017-04-05] MEDS: CEFTRIAXONE 1 GM/50 ML (PMX) 50 ML IVPB SCH (17:10)
[2017-04-05] MEDS: ATORVASTATIN 20 MG TAB PO SCH (20:17)
[2017-04-06 02:00] VITALS: BP 120/65; RESP 20
[2017-04-06] MEDS: LEVOTHYROXINE 100 MCG TAB PO SCH (06:11)
[2017-04-06 08:00] VITALS: BP 84/46; RESP 18
[2017-04-06] MEDS: ASPIRIN 325 MG TAB PO SCH (08:56)
[2017-04-06] MEDS: HYDROCORTISONE 5 MG TAB PO SCH ×3 (08:57→20:14)
[2017-04-06] MEDS: HYDROCHLOROTHIAZIDE 12.5 MG CAP PO SCH (09:00)
[2017-04-06] MEDS: AMIODARONE 200 MG TAB PO SCH (10:21)
[2017-04-06] MEDS: DILTIAZEM (CD) 180 MG CAP PO SCH (10:21)
[2017-04-06] MEDS ORDERED: SOD CHLORIDE 0.9% 500 ML IV ONE (10:30)
--- NOTE | 2017-04-06 10:53 | CONS ---
Date/Time of Note Date/Time of Note DATE: 04/06/17 TIME: 10:53 Consult Date/Type/Reason Admit Date/Time Apr 03, 2017 at 19:57 Type of Consultation: Internal medicine Subjective Comfortable at rest Objective min assist transfer Vital Signs Date Time Temp Pulse Resp B/P Pulse Ox O2 Delivery O2 Flow Rate FiO2 04/06/17 02:00 98.3 85 20 120/65 95 04/05/17 15:29 Nasal Cannula 2.0 04/04/17 13:30 21 Intake and Output 04/05/17 04/05/17 04/06/17 15:00 23:00 07:00 Intake Total 1140 ml 800 ml Balance 1140 ml 800 ml Results/Medications Result Diagram: 04/04/17 0618 04/05/17 0941 Medications Current Medications Aspirin (Aspirin) 325 mg DAILY PO Last administered on 04/06/17 08:56; Admin Dose 325 MG; Start 04/04/17 at 09:00 Magnesium Hydroxide (Milk Of Mag) 30 ml DAILY PRN PO CONSTIPATION; Start 04/03 at 22:00 Atorvastatin Calcium (Lipitor) 20 mg DAILY@21 PO Last administered on 20:17; Admin Dose 20 MG; Start 04/03/17 at 21:30 Diltiazem HCl (Cardizem Cd) 180 mg DAILY PO Last administered on 04/06/17 10: 21; Admin Dose 180 MG; Start 04/04/17 at 09:00 Docusate Sodium (Colace) 100 mg Q12H PRN PO CONSTIPATION; Start 04/03/17 at 22 :00 Acetaminophen/ Hydrocodone Bitart ([place] (5/325)) 1 tab Q6H PRN PO PAIN Last administered on 04/05/17 08:50; Admin Dose 1 TAB; Start 04/03/17 at 22:00 Hydrocortisone (Cortef) 20 mg DAILY PO Last administered on 04/06/17 08:57; Admin Dose 20 MG; Start 04/04/17 at 09:00 Acetaminophen (Tylenol Tab) 650 mg Q6H PRN PO PAIN AND OR ELEVATED TEMP; Start 04/03/17 at 22:00 Amiodarone HCl 200 mg 200 mg BID PO Last administered on 04/06/17 10:21; Admin Dose 200 MG; Start 04/03/17 at 21:30 Ceftriaxone Sodium (Rocephin) 50 ml @ 100 mls/hr Q24H IVPB Last administered on 04/05/17 17:10; Admin Dose 100 MLS/HR; Start 04/04/17 at 16:30 Hydrochlorothiazide (Hydrochlorothiazide) 12.5 mg DAILY PO Last administered on 04/04/17 17:15; Admin Dose 12.5 MG; Start 04/04/17 at 16:00 Assessment/Plan Additional Assessment/Plan Rehab-Debility secondary to cardiac arrhythmia s/p pacemaker, hypokalemia, and multiple electrolyte abnormalities - improving Activities as tolerated Cardiac- f/b cardiology. IVF for orthostatic hypotension per cardiology Panhypopituitarism Hypertension. Dyslipidemia. KAYLEY MCKEON MD Apr 06, 2017 10:53
[2017-04-06] MEDS ORDERED: POTASSIUM CHLORIDE (SR) 20 MEQ TAB PO STA (11:29)
--- NOTE | 2017-04-06 11:40 | PN ---
Date/Time of Note Date/Time of Note DATE: 04/06/17 TIME: 11:37 Assessment/Plan VTE Prophylaxis VTE Prophylaxis Intervention: anti-embolic stocking Lines/Catheters IV Catheter Type (from [facility]): Saline Lock Assessment/Plan Problems: (1) Paroxysmal atrial fibrillation with rapid ventricular response Status: Chronic Comment: Patient has tachybradycardia syndrome. On cardiac medications as per cardiology. Careful observation (2) Tachy-farzad syndrome Status: Chronic Comment: As above. Watch for bradycardia (3) History of hypophysectomy Onset Date: ~ 03/1982 Status: Chronic Comment: Patient has panhypopituitarism. There is no need to treat for the growth hormone deficiency or the gonadotropin deficiencies. 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 This does not have enough duration of action due to pharmacokinetics to cover her needs. 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 Please note with the pituitary out TSH is not a usable test for following. (6) Hyperlipidemia Status: Chronic Comment: Continue statin therapy. Qualifiers: Hyperlipidemia type: pure hypercholesterolemia Qualified Code: E78.00 - Pure hypercholesterolemia (7) VRE (vancomycin resistant enterococcus) culture positive Status: Acute Comment: Urine culture is positive. Sensitivities indicate fosfomycin can be used in the setting. Go ahead and dose and then repeat the culture to verify that we have succeeded Subjective 24 Hr Interval Summary Free Text/Dictation Patient active with physical therapy Constitutional: no complaints Respiratory: no complaints Cardiovascular: no complaints Gastrointestinal: no complaints Genitourinary: no complaints Exam/Review of Systems Vital Signs Vitals Vital Signs Date Time Temp Pulse Resp B/P Pulse Ox O2 Delivery O2 Flow Rate FiO2 04/06/17 08:00 97.6 97 18 84/46 93 04/05/17 15:29 Nasal Cannula 2.0 04/04/17 13:30 21 Intake and Output 04/05/17 04/05/17 04/06/17 15:00 23:00 07:00 Intake Total 1140 ml 800 ml Balance 1140 ml 800 ml Exam Constitutional: alert, oriented Neck: non-tender, supple Respiratory: clear to auscultation, normal air movement Cardiovascular: nl pulses, regular rate and rhythm Results Result Diagram: 04/04/17 0618 04/05/17 0941 Medications Medications Current Medications Aspirin (Aspirin) 325 mg DAILY PO Last administered on 04/06/17 08:56; Admin Dose 325 MG; Start 04/04/17 at 09:00 Magnesium Hydroxide (Milk Of Mag) 30 ml DAILY PRN PO CONSTIPATION; Start 04/03 at 22:00 Atorvastatin Calcium (Lipitor) 20 mg DAILY@21 PO Last administered on 20:17; Admin Dose 20 MG; Start 04/03/17 at 21:30 Diltiazem HCl (Cardizem Cd) 180 mg DAILY PO Last administered on 04/06/17 10: 21; Admin Dose 180 MG; Start 04/04/17 at 09:00 Docusate Sodium (Colace) 100 mg Q12H PRN PO CONSTIPATION; Start 04/03/17 at 22 :00 Acetaminophen/ Hydrocodone Bitart ([place] (5/325)) 1 tab Q6H PRN PO PAIN Last administered on 04/05/17 08:50; Admin Dose 1 TAB; Start 04/03/17 at 22:00 Acetaminophen (Tylenol Tab) 650 mg Q6H PRN PO PAIN AND OR ELEVATED TEMP; Start 04/03/17 at 22:00 Amiodarone HCl 200 mg 200 mg BID PO Last administered on 04/06/17 10:21; Admin Dose 200 MG; Start 04/03/17 at 21:30 Ceftriaxone Sodium (Rocephin) 50 ml @ 100 mls/hr Q24H IVPB Last administered on 04/05/17 17:10; Admin Dose 100 MLS/HR; Start 04/04/17 at 16:30 Hydrochlorothiazide (Hydrochlorothiazide) 12.5 mg DAILY PO Last administered on 04/04/17 17:15; Admin Dose 12.5 MG; Start 04/04/17 at 16:00 Hydrocortisone (Cortef) 10 mg QAM PO ; Start 04/07/17 at 09:00; Status UNV Hydrocortisone (Cortef) 2.5 mg QHS PO ; Start 04/06/17 at 21:00; Status UNV AMY PEARSON MD Apr 06, 2017 11:40
--- NOTE | 2017-04-06 11:44 | CONS ---
Date/Time of Note Date/Time of Note DATE: 04/06/17 TIME: 11:38 Assessment/Plan Assessment/Plan Chief Complaint/Hosp Course Orthostatic hypotension: Likely mildly volume depleted and on HCTZ. Will stop and gently hydrate SSS/tachy-farzad s/p PPM 03/31/17 Paroxysmal afib: by exam appears to be in sinus. On amio. On ASA instead of Eliquis by choice as she is afraid of falls HTN Panhypopituitarism -d/c HCTZ -gentle hydration -check orthostatic q shift -continue diltiazem -decrease amio to 200mg daily -ASA Problems: Consultation Date/Type/Reason Admit Date/Time Apr 03, 2017 at 19:57 Date of Consultation: Apr 06, 2017 Type of Consultation: Cardiology Reason for Consultation Orthostatic hypotension Referring Provider: TONYA ENRIQUEZ NP Hx of Present Illness 86 yo F who was recently hospitalized and had a PPM placed for SSS and tachy- farzad 03/31/17, also with paroxysmal afib on ASA by choice, HTN, panhypopituitarism, who was admitted to rehab. She was noted to have episodes of hypotension to the 80s with mild tachycardia and dizziness. Upon my request, orthostatics were checked last evening and were positive. IVF were given. This am again were positive and more fluids were given and HCTZ held on my request. Pt is sitting in a wheelchair participating with other pts. No complaints currently. No chest pain or SOB. No dizziness at rest. per hPI Past Medical History per HPI Past Surgical History Past Surgical Hx: no surgical history Social History Smoking Status: Never smoker Exam/Review of Systems Vital Signs Vitals Vital Signs Date Time Temp Pulse Resp B/P Pulse Ox O2 Delivery O2 Flow Rate FiO2 04/06/17 08:00 97.6 97 18 84/46 93 04/05/17 15:29 Nasal Cannula 2.0 04/04/17 13:30 21 Intake and Output 04/05/17 04/05/17 04/06/17 15:00 23:00 07:00 Intake Total 1140 ml 800 ml Balance 1140 ml 800 ml Exam Constitutional: alert, oriented Psych: nl mood/affect, no complaints Head: atraumatic, normocephalic ENMT: nl external ears & nose Neck: supple, No jvd (but pt sitting up) Respiratory: No clear to auscultation (mild basilar crackles ) Cardiovascular: edema (trace), regular rate and rhythm, No systolic murmur Gastrointestinal: non-tender, soft Neurological: nl mental status, nl speech Results Result Diagram: 04/04/17 0618 04/05/17 0941 Medications Medications Current Medications Aspirin (Aspirin) 325 mg DAILY PO Last administered on 04/06/17 08:56; Admin Dose 325 MG; Start 04/04/17 at 09:00 Magnesium Hydroxide (Milk Of Mag) 30 ml DAILY PRN PO CONSTIPATION; Start 04/03 at 22:00 Atorvastatin Calcium (Lipitor) 20 mg DAILY@21 PO Last administered on 20:17; Admin Dose 20 MG; Start 04/03/17 at 21:30 Diltiazem HCl (Cardizem Cd) 180 mg DAILY PO Last administered on 04/06/17 10: 21; Admin Dose 180 MG; Start 04/04/17 at 09:00 Docusate Sodium (Colace) 100 mg Q12H PRN PO CONSTIPATION; Start 04/03/17 at 22 :00 Acetaminophen/ Hydrocodone Bitart ([place] (5/325)) 1 tab Q6H PRN PO PAIN Last administered on 04/05/17 08:50; Admin Dose 1 TAB; Start 04/03/17 at 22:00 Acetaminophen (Tylenol Tab) 650 mg Q6H PRN PO PAIN AND OR ELEVATED TEMP; Start 04/03/17 at 22:00 Amiodarone HCl 200 mg 200 mg BID PO Last administered on 04/06/17 10:21; Admin Dose 200 MG; Start 04/03/17 at 21:30 Ceftriaxone Sodium (Rocephin) 50 ml @ 100 mls/hr Q24H IVPB Last administered on 04/05/17 17:10; Admin Dose 100 MLS/HR; Start 04/04/17 at 16:30 Hydrochlorothiazide (Hydrochlorothiazide) 12.5 mg DAILY PO Last administered on 04/04/17 17:15; Admin Dose 12.5 MG; Start 04/04/17 at 16:00 Hydrocortisone (Cortef) 10 mg QAM PO ; Start 04/07/17 at 09:00; Status UNV Hydrocortisone (Cortef) 2.5 mg QHS PO ; Start 04/06/17 at 21:00; Status GOMEZ WEI Apr 06, 2017 11:44
[2017-04-06] MEDS ORDERED: FOSFOMYCIN 3 GM PACKET PO ONE (13:00)
[2017-04-06] MEDS ORDERED: ONDANSETRON 4 MG INJ IV PRN (13:00)
--- NOTE | 2017-04-06 18:52 | RADRPT ---
Vent Rate: 113 bpm RR Interval: 0 msec DC Interval: 0 msec QRS Duration: 90 msec QT Interval: 364 msec QTC Interval: 499 msec P-R-T [place]: 0 - 40 - 24 degrees Atrial fibrillation with rapid ventricular response Abnormal ECG Electronically Signed By: Mark Godfrey [id number]
[2017-04-06 19:45] VITALS: BP_SYST 101; BP_SYST 108; BP_SYST 114; BP_DIAS 48; BP_DIAS 50; BP_DIAS 54; PULSE 71
[2017-04-06] MEDS: ATORVASTATIN 20 MG TAB PO SCH (20:14)
[2017-04-06] MEDS: L ACIDOPHIL/B LACTIS/B LONGUM CAPSULE PO SCH (20:14)
[2017-04-07 02:00] VITALS: BP 124/52; PULSE 75; RESP 18
[2017-04-07] MEDS: LEVOTHYROXINE 100 MCG TAB PO SCH (06:47)
[2017-04-07] MEDS: LEVOFLOXACIN 500 MG TAB PO SCH (06:47)
[2017-04-07 07:00] VITALS: BP 128/48; RESP 18
[2017-04-07] MEDS: L ACIDOPHIL/B LACTIS/B LONGUM CAPSULE PO SCH ×2 (08:34→20:42)
[2017-04-07] MEDS: HYDROCORTISONE 5 MG TAB PO SCH ×3 (08:34→20:41)
[2017-04-07] MEDS: ASPIRIN 325 MG TAB PO SCH (08:35)
[2017-04-07] MEDS: AMIODARONE 200 MG TAB PO SCH (08:35)
[2017-04-07] MEDS: DILTIAZEM (CD) 180 MG CAP PO SCH (08:36)
[2017-04-07] MEDS ORDERED: LACTULOSE 30ML CUP PO PRN (10:30)
[2017-04-07] MEDS ORDERED: BISACODYL 10 MG SUPP PR PRN (10:30)
[2017-04-07 10:40] VITALS: BP_SYST 122; BP_SYST 124; BP_SYST 134; BP_DIAS 50; BP_DIAS 60; BP_DIAS 62; PULSE 70; PULSE 76; PULSE 86
--- NOTE | 2017-04-07 12:44 | CONS ---
Date/Time of Note Date/Time of Note DATE: 04/07/17 TIME: 12:43 Assessment/Plan Assessment/Plan Chief Complaint/Hosp Course Orthostatic hypotension: Likely mildly volume depleted and on HCTZ. Resolved SSS/tachy-farzad s/p PPM 03/31/17 Paroxysmal afib: by exam appears to be in sinus. On amio. On ASA instead of Eliquis by choice as she is afraid of falls HTN Panhypopituitarism -check orthostatics before PT -continue diltiazem -amio 200mg daily -ASA Problems: Consultation Date/Type/Reason Admit Date/Time Apr 03, 2017 at 19:57 Initial Consult Date 04/06/17 Type of Consultation: Cardiology Referring Provider: TONYA ENRIQUEZ NP 24 HR Interval Summary Free Text/Dictation No hypotensive episodes but has not gotten out of bed yet. Otherwise feels well Exam/Review of Systems Vital Signs Vitals Vital Signs Date Time Temp Pulse Resp B/P Pulse Ox O2 Delivery O2 Flow Rate FiO2 04/07/17 07:00 98.3 69 18 128/48 94 04/05/17 15:29 Nasal Cannula 2.0 04/04/17 13:30 21 Intake and Output 04/06/17 04/06/17 04/07/17 15:00 23:00 07:00 Intake Total 500 ml 2000 ml 350 ml Output Total 800 ml Balance 500 ml 1200 ml 350 ml Exam Constitutional: alert, oriented Psych: nl mood/affect, no complaints Neck: No jvd Respiratory: clear to auscultation, No crackles/rales Cardiovascular: edema (trace), regular rate and rhythm Gastrointestinal: non-tender, soft Neurological: nl mental status, nl speech Results Result Diagram: 04/04/17 0618 04/05/17 0941 Medications Medications Current Medications Aspirin (Aspirin) 325 mg DAILY PO Last administered on 04/07/17 08:35; Admin Dose 325 MG; Start 04/04/17 at 09:00 Magnesium Hydroxide (Milk Of Mag) 30 ml DAILY PRN PO CONSTIPATION Last administered on 04/06/17 15:19; Admin Dose 30 ML; Start 04/03/17 at 22:00 Atorvastatin Calcium (Lipitor) 20 mg DAILY@21 PO Last administered on 20:14; Admin Dose 20 MG; Start 04/03/17 at 21:30 Diltiazem HCl (Cardizem Cd) 180 mg DAILY PO Last administered on 04/07/17 08: 36; Admin Dose 180 MG; Start 04/04/17 at 09:00 Docusate Sodium (Colace) 100 mg Q12H PRN PO CONSTIPATION; Start 04/03/17 at 22 :00 Acetaminophen/ Hydrocodone Bitart ([place] (5/325)) 1 tab Q6H PRN PO PAIN Last administered on 04/05/17 08:50; Admin Dose 1 TAB; Start 04/03/17 at 22:00 Acetaminophen (Tylenol Tab) 650 mg Q6H PRN PO PAIN AND OR ELEVATED TEMP; Start 04/03/17 at 22:00 Hydrocortisone (Cortef) 10 mg QAM PO Last administered on 04/07/17 08:34; Admin Dose 10 MG; Start 04/07/17 at 09:00 Hydrocortisone (Cortef) 2.5 mg QHS PO Last administered on 04/06/17 20:14; Admin Dose 2.5 MG; Start 04/06/17 at 21:00 Levofloxacin (Levaquin) 500 mg DAILY@06 PO Last administered on 04/07/17 06: 47; Admin Dose 500 MG; Start 04/07/17 at 06:00; Stop 04/12/17 at 05:59 Amiodarone HCl (Cordarone) 200 mg DAILY PO Last administered on 04/07/17 08: 35; Admin Dose 200 MG; Start 04/07/17 at 09:00 Ondansetron HCl (Zofran Inj) 4 mg Q6H PRN IV NAUSEA AND/OR VOMITING Last administered on 04/06/17 13:10; Admin Dose 4 MG; Start 04/06/17 at 13:00 Lactobacillus Acidophilus (Florajen3 Capsule) 1 each BID PO Last administered on 04/07/17 08:34; Admin Dose 1 EACH; Start 04/06/17 at 21:00 Lactulose (Enulose) 20 gm DAILY PRN PO CONSTIPATION; Start 04/07/17 at 10:30 Senna (Senokot) 2 tab DAILY PO ; Start 04/08/17 at 09:00 Bisacodyl (Dulcolax Supp) 10 mg DAILY PRN [place] CONSTIPATION; Start 04/07/17 at 10:30 GOMEZ SHANNON Apr 07, 2017 12:44
[2017-04-07 14:00] VITALS: BP 121/45; RESP 18
--- NOTE | 2017-04-07 14:11 | PN ---
Date/Time of Note Date/Time of Note DATE: 04/07/17 TIME: 14:07 Assessment/Plan VTE Prophylaxis VTE Prophylaxis Intervention: heparin Lines/Catheters IV Catheter Type (from [facility]): Saline Lock Assessment/Plan Problems: (1) History of hypophysectomy Onset Date: ~ 03/1982 Status: Chronic Comment: Noted. 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 She has a normal free T4 but her free T3 is low. 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 This should help with the dehydration and orthostasis (4) Paroxysmal atrial fibrillation with rapid ventricular response Status: Chronic Comment: Noted and controlled. 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 place (6) VRE (vancomycin resistant enterococcus) culture positive Status: Acute Comment: 3 days of low nasal like to help eradicate Subjective 24 Hr Interval Summary Free Text/Dictation Patient reports that she feels better than she did yesterday although she does have some urinary symptoms Constitutional: no complaints (No fevers chills or sweats) Respiratory: no complaints Cardiovascular: no complaints Gastrointestinal: no complaints Genitourinary: dysuria Exam/Review of Systems Vital Signs Vitals Vital Signs Date Time Temp Pulse Resp B/P Pulse Ox O2 Delivery O2 Flow Rate FiO2 04/07/17 07:00 98.3 69 18 128/48 94 04/05/17 15:29 Nasal Cannula 2.0 04/04/17 13:30 21 Intake and Output 04/06/17 04/06/17 04/07/17 15:00 23:00 07:00 Intake Total 500 ml 2000 ml 350 ml Output Total 800 ml Balance 500 ml 1200 ml 350 ml Exam Constitutional: alert, oriented Eyes: EOMI, PERRL, nl conjunctiva, nl lids, nl sclera Respiratory: clear to auscultation, normal air movement Cardiovascular: nl pulses, regular rate and rhythm Gastrointestinal: nl liver, spleen, non-tender, soft Results Result Diagram: 04/04/17 0618 04/05/17 0941 Medications Medications Current Medications Aspirin (Aspirin) 325 mg DAILY PO Last administered on 04/07/17 08:35; Admin Dose 325 MG; Start 04/04/17 at 09:00 Magnesium Hydroxide (Milk Of Mag) 30 ml DAILY PRN PO CONSTIPATION Last administered on 04/06/17 15:19; Admin Dose 30 ML; Start 04/03/17 at 22:00 Atorvastatin Calcium (Lipitor) 20 mg DAILY@21 PO Last administered on 20:14; Admin Dose 20 MG; Start 04/03/17 at 21:30 Diltiazem HCl (Cardizem Cd) 180 mg DAILY PO Last administered on 04/07/17 08: 36; Admin Dose 180 MG; Start 04/04/17 at 09:00 Docusate Sodium (Colace) 100 mg Q12H PRN PO CONSTIPATION; Start 04/03/17 at 22 :00 Acetaminophen/ Hydrocodone Bitart ([place] (5/325)) 1 tab Q6H PRN PO PAIN Last administered on 04/05/17 08:50; Admin Dose 1 TAB; Start 04/03/17 at 22:00 Acetaminophen (Tylenol Tab) 650 mg Q6H PRN PO PAIN AND OR ELEVATED TEMP; Start 04/03/17 at 22:00 Hydrocortisone (Cortef) 10 mg QAM PO Last administered on 04/07/17 08:34; Admin Dose 10 MG; Start 04/07/17 at 09:00 Hydrocortisone (Cortef) 2.5 mg QHS PO Last administered on 04/06/17 20:14; Admin Dose 2.5 MG; Start 04/06/17 at 21:00 Levofloxacin (Levaquin) 500 mg DAILY@06 PO Last administered on 04/07/17 06: 47; Admin Dose 500 MG; Start 04/07/17 at 06:00; Stop 04/12/17 at 05:59 Amiodarone HCl (Cordarone) 200 mg DAILY PO Last administered on 04/07/17 08: 35; Admin Dose 200 MG; Start 04/07/17 at 09:00 Ondansetron HCl (Zofran Inj) 4 mg Q6H PRN IV NAUSEA AND/OR VOMITING Last administered on 04/06/17 13:10; Admin Dose 4 MG; Start 04/06/17 at 13:00 Lactobacillus Acidophilus (Florajen3 Capsule) 1 each BID PO Last administered on 04/07/17t 08:34; Admin Dose 1 EACH; Start 04/06/17 at 21:00 Lactulose (Enulose) 20 gm DAILY PRN PO CONSTIPATION; Start 04/07/17 at 10:30 Senna (Senokot) 2 tab DAILY PO ; Start 04/08/17 at 09:00 Bisacodyl (Dulcolax Supp) 10 mg DAILY PRN [place] CONSTIPATION; Start 04/07/17 at 10:30 AMY PEARSON MD Apr 07, 2017 14:11
[2017-04-07] MEDS: ZYVOX 600 MG TAB PO SCH ×2 (16:40→20:42)
[2017-04-07] MEDS: LIOTHYRONINE 5 MCG TAB PO SCH (16:40)
--- NOTE | 2017-04-07 19:35 | RADRPT ---
Vent Rate: 73 bpm RR Interval: 0 msec RI Interval: 168 msec QRS Duration: 92 msec QT Interval: 444 msec QTC Interval: 489 msec P-R-T Loman: 73 - 50 - 71 degrees Normal sinus rhythm Normal ECG Electronically Signed By: Mark Godfrey [id number]
[2017-04-07] MEDS: ATORVASTATIN 20 MG TAB PO SCH (20:42)
[2017-04-07 21:30] VITALS: BP_SYST 110; BP_SYST 118; BP_SYST 128; BP_DIAS 53; BP_DIAS 54; BP_DIAS 56; PULSE 74
[2017-04-08 02:15] VITALS: BP 128/54; PULSE 73; RESP 18
[2017-04-08] MEDS: LEVOFLOXACIN 500 MG TAB PO SCH (06:41)
[2017-04-08] MEDS: LEVOTHYROXINE 88 MCG TAB PO SCH (06:41)
[2017-04-08 07:00] VITALS: BP 110/55; RESP 18
[2017-04-08] MEDS: HYDROCODONE/APAP (5/325) TAB PO PRN (08:57)
[2017-04-08] MEDS: ASPIRIN 325 MG TAB PO SCH (08:57)
[2017-04-08] MEDS: ZYVOX 600 MG TAB PO SCH (08:57)
[2017-04-08] MEDS: LIOTHYRONINE 5 MCG TAB PO SCH (08:57)
[2017-04-08] MEDS: HYDROCORTISONE 5 MG TAB PO SCH ×3 (08:57→21:31)
[2017-04-08] MEDS: AMIODARONE 200 MG TAB PO SCH (08:58)
[2017-04-08] MEDS: SENNA TAB PO SCH (08:58)
[2017-04-08] MEDS: L ACIDOPHIL/B LACTIS/B LONGUM CAPSULE PO SCH ×2 (09:00→21:30)
--- NOTE | 2017-04-08 09:17 | CONS ---
Date/Time of Note Date/Time of Note DATE: 04/08/17 TIME: 09:15 Assessment/Plan Assessment/Plan Chief Complaint/Hosp Course Orthostatic hypotension: Likely mildly volume depleted and on HCTZ. Resolved over weekend but possibly positive again today though has not been confirmed SSS/tachy-farzad s/p PPM 03/31/17 Paroxysmal afib: by exam appears to be in sinus. On amio. On ASA instead of Eliquis by choice as she is afraid of falls HTN Panhypopituitarism -check orthostatics again. If positive, give another 250mL of fluid. Encouraged fluid intake -decrease diltiazem to 120mg -amio 200mg daily -ASA Problems: Consultation Date/Type/Reason Admit Date/Time Apr 03, 2017 at 19:57 Initial Consult Date 04/06/17 Type of Consultation: Cardiology Referring Provider: TONYA ENRIQUEZ NP 24 HR Interval Summary Free Text/Dictation This am worked with PT. BP checked after was in the 80s again. No dizziness but felt tired Exam/Review of Systems Vital Signs Vitals Vital Signs Date Time Temp Pulse Resp B/P Pulse Ox O2 Delivery O2 Flow Rate FiO2 04/08/17 07:00 97.8 78 18 110/55 96 04/05/17 15:29 Nasal Cannula 2.0 04/04/17 13:30 21 Intake and Output 04/07/17 04/07/17 04/08/17 15:00 23:00 07:00 Intake Total 1600 ml 360 ml Output Total 600 ml Balance 1000 ml 360 ml Exam Constitutional: alert, oriented Psych: nl mood/affect, no complaints Neck: supple, No jvd Respiratory: clear to auscultation, No crackles/rales Cardiovascular: regular rate and rhythm, No edema Gastrointestinal: non-tender, soft Neurological: nl mental status, nl speech Results Result Diagram: 04/04/17 0618 04/05/17 0941 Medications Medications Current Medications Aspirin (Aspirin) 325 mg DAILY PO Last administered on 04/07/17 08:35; Admin Dose 325 MG; Start 04/04/17 at 09:00 Magnesium Hydroxide (Milk Of Mag) 30 ml DAILY PRN PO CONSTIPATION Last administered on 04/06/17 15:19; Admin Dose 30 ML; Start 04/03/17 at 22:00 Atorvastatin Calcium (Lipitor) 20 mg DAILY@21 PO Last administered on 20:42; Admin Dose 20 MG; Start 04/03/17 at 21:30 Diltiazem HCl (Cardizem Cd) 180 mg DAILY PO Last administered on 04/07/17 08: 36; Admin Dose 180 MG; Start 04/04/17 at 09:00 Docusate Sodium (Colace) 100 mg Q12H PRN PO CONSTIPATION; Start 04/03/17 at 22 :00 Acetaminophen/ Hydrocodone Bitart ([place] (5/325)) 1 tab Q6H PRN PO PAIN Last administered on 04/05/17 08:50; Admin Dose 1 TAB; Start 04/03/17 at 22:00 Acetaminophen (Tylenol Tab) 650 mg Q6H PRN PO PAIN AND OR ELEVATED TEMP; Start 04/03/17 at 22:00 Hydrocortisone (Cortef) 10 mg QAM PO Last administered on 04/07/17 08:34; Admin Dose 10 MG; Start 04/07/17 at 09:00 Hydrocortisone (Cortef) 2.5 mg QHS PO Last administered on 04/07/17 20:41; Admin Dose 2.5 MG; Start 04/06/17 at 21:00 Levofloxacin (Levaquin) 500 mg DAILY@06 PO Last administered on 04/08/17 06: 41; Admin Dose 500 MG; Start 04/07/17 at 06:00; Stop 04/12/17 at 05:59 Amiodarone HCl (Cordarone) 200 mg DAILY PO Last administered on 04/07/17 08: 35; Admin Dose 200 MG; Start 04/07/17 at 09:00 Ondansetron HCl (Zofran Inj) 4 mg Q6H PRN IV NAUSEA AND/OR VOMITING Last administered on 04/06/17 13:10; Admin Dose 4 MG; Start 04/06/17 at 13:00 Lactobacillus Acidophilus (Florajen3 Capsule) 1 each BID PO Last administered on 04/07/17 20:42; Admin Dose 1 EACH; Start 04/06/17 at 21:00 Lactulose (Enulose) 20 gm DAILY PRN PO CONSTIPATION Last administered on 06:44; Admin Dose 20 GM; Start 04/07/17 at 10:30 Senna (Senokot) 2 tab DAILY PO ; Start 04/08/17 at 09:00 Bisacodyl (Dulcolax Supp) 10 mg DAILY PRN [place] CONSTIPATION; Start 04/07/17 at 10:30 Liothyronine Sodium (Cytomel) 5 mcg DAILY PO Last administered on 04/07/17 16 :40; Admin Dose 5 MCG; Start 04/07/17 at 14:30 Linezolid (Zyvox) 600 mg BID PO Last administered on 04/07/17 20:42; Admin Dose 600 MG; Start 04/07/17 at 14:30; Stop 04/10/17 at 14:29 GOMEZ SHANNON Apr 08, 2017 09:17
[2017-04-08] MEDS ORDERED: DILTIAZEM (CD) 180 MG CAP PO SCH (09:35)
[2017-04-08 10:46] VITALS: BP_SYST 112; BP_SYST 123; BP_SYST 86; BP_DIAS 49; BP_DIAS 50; BP_DIAS 51; PULSE 52; PULSE 68; PULSE 77
--- NOTE | 2017-04-08 11:48 | CONS ---
Date/Time of Note Date/Time of Note DATE: 04/08/17 TIME: 11:48 Consult Date/Type/Reason Admit Date/Time Apr 03, 2017 at 19:57 Type of Consultation: Cardiology Ordering Provider: TONYA ENRIQUEZ NP Objective Vital Signs Date Time Temp Pulse Resp B/P Pulse Ox O2 Delivery O2 Flow Rate FiO2 04/08/17 10:46 68 112/49 52 86/50 77 123/51 04/08/17 07:00 97.8 18 96 04/05/17 15:29 Nasal Cannula 2.0 04/04/17 13:30 21 Intake and Output 04/07/17 04/07/17 04/08/17 15:00 23:00 07:00 Intake Total 1600 ml 360 ml Output Total 600 ml Balance 1000 ml 360 ml INTERDISCIPLINARY TEAM CONFERENCE BOWEL- Cont BLADDER-Cont SKIN- intact OT- DRESSING-mod BATHING-mod TOILETING-mod PT- BED MOBILITY-mod TRANSFERS-mod AMBULATION-mod 14 feet W.C. MOBILITY-mod A/P- Interdisciplinary team conference held today. Please see interdisciplinary sheet. Working toward d.c. on 04/15 with post discharge follow up of physical therapy, occupational therapy. Results/Medications Result Diagram: 04/04/17 0618 04/05/17 0941 Medications Current Medications Aspirin (Aspirin) 325 mg DAILY PO Last administered on 04/08/17 08:57; Admin Dose 325 MG; Start 04/04/17 at 09:00 Magnesium Hydroxide (Milk Of Mag) 30 ml DAILY PRN PO CONSTIPATION Last administered on 04/06/17 15:19; Admin Dose 30 ML; Start 04/03/17 at 22:00 Atorvastatin Calcium (Lipitor) 20 mg DAILY@21 PO Last administered on 20:42; Admin Dose 20 MG; Start 04/03/17 at 21:30 Docusate Sodium (Colace) 100 mg Q12H PRN PO CONSTIPATION; Start 04/03/17 at 22 :00 Acetaminophen/ Hydrocodone Bitart ([place] (5/325)) 1 tab Q6H PRN PO PAIN Last administered on 04/08/17 08:57; Admin Dose 1 TAB; Start 04/03/17 at 22:00 Acetaminophen (Tylenol Tab) 650 mg Q6H PRN PO PAIN AND OR ELEVATED TEMP; Start 04/03/17 at 22:00 Hydrocortisone (Cortef) 10 mg QAM PO Last administered on 04/08/17 08:57; Admin Dose 10 MG; Start 04/07/17 at 09:00 Levofloxacin (Levaquin) 500 mg DAILY@06 PO Last administered on 04/08/17 06: 41; Admin Dose 500 MG; Start 04/07/17 at 06:00; Stop 04/12/17 at 05:59 Amiodarone HCl (Cordarone) 200 mg DAILY PO Last administered on 04/08/17 08: 58; Admin Dose 200 MG; Start 04/07/17 at 09:00 Ondansetron HCl (Zofran Inj) 4 mg Q6H PRN IV NAUSEA AND/OR VOMITING Last administered on 04/06/17 13:10; Admin Dose 4 MG; Start 04/06/17 at 13:00 Lactobacillus Acidophilus (Florajen3 Capsule) 1 each BID PO Last administered on 04/07/17 20:42; Admin Dose 1 EACH; Start 04/06/17 at 21:00 Lactulose (Enulose) 20 gm DAILY PRN PO CONSTIPATION Last administered on 06:44; Admin Dose 20 GM; Start 04/07/17 at 10:30 Senna (Senokot) 2 tab DAILY PO Last administered on 04/08/17 08:58; Admin Dose 2 TAB; Start 04/08/17 at 09:00 Bisacodyl (Dulcolax Supp) 10 mg DAILY PRN [place] CONSTIPATION; Start 04/07/17 at 10:30 Liothyronine Sodium (Cytomel) 5 mcg DAILY PO Last administered on 04/08/17 08 :57; Admin Dose 5 MCG; Start 04/07/17 at 14:30 Linezolid (Zyvox) 600 mg BID PO Last administered on 04/08/17 08:57; Admin Dose 600 MG; Start 04/07/17 at 14:30; Stop 04/10/17 at 14:29 Diltiazem HCl (Cardizem Cd) 120 mg DAILY PO ; Start 04/08/17 at 09:38 Hydrocortisone (Cortef) 5 mg QHS PO ; Start 04/08/17 at 21:00 KAYLEY MCKEON MD Apr 08, 2017 11:48 KAYLEY MCKEON MD Apr 08, 2017 11:48
[2017-04-08] MEDS: DILTIAZEM (CD) 120 MG CAP PO SCH (13:00)
[2017-04-08 14:00] VITALS: BP 84/42; RESP 18
--- NOTE | 2017-04-08 14:55 | CONS ---
Date/Time of Note Date/Time of Note DATE: 04/08/17 TIME: 14:39 Consult Date/Type/Reason Admit Date/Time Apr 03, 2017 at 19:57 Initial Consult Date 04/06/17 Type of Consultation: Internal medicine Ordering Provider: TONYA ENRIQUEZ NP Subjective Comfortable, postural hypotension per staff. Patient requesting increased steroid dose. Objective Vital Signs Date Time Temp Pulse Resp B/P Pulse Ox O2 Delivery O2 Flow Rate FiO2 04/08/17 10:46 68 112/49 52 86/50 77 123/51 04/08/17 07:00 97.8 18 96 04/05/17 15:29 Nasal Cannula 2.0 04/04/17 13:30 21 Intake and Output 04/07/17 04/07/17 04/08/17 15:00 23:00 07:00 Intake Total 1600 ml 360 ml Output Total 600 ml Balance 1000 ml 360 ml Exam GENERAL: Elderly lady comfortable at rest no acute distress VITAL SIGNS: per chart NECK: Supple. No JVD or lymphadenopathy. CARDIAC EXAM: S1, S2. No added sounds or murmurs. CHEST: clear bilaterally, No added sounds, rales or wheezes ABDOMEN: Soft, nontender. No guarding or rebound. EXTREMITIES: No cyanosis, clubbing or edema. NEUROLOGIC: Generalized weakness. No focal deficits. Results/Medications Result Diagram: 04/04/17 0618 04/05/17 0941 Medications Current Medications Aspirin (Aspirin) 325 mg DAILY PO Last administered on 04/08/17 08:57; Admin Dose 325 MG; Start 04/04/17 at 09:00 Magnesium Hydroxide (Milk Of Mag) 30 ml DAILY PRN PO CONSTIPATION Last administered on 04/06/17 15:19; Admin Dose 30 ML; Start 04/03/17 at 22:00 Atorvastatin Calcium (Lipitor) 20 mg DAILY@21 PO Last administered on 20:42; Admin Dose 20 MG; Start 04/03/17 at 21:30 Docusate Sodium (Colace) 100 mg Q12H PRN PO CONSTIPATION; Start 04/03/17 at 22 :00 Acetaminophen/ Hydrocodone Bitart ([place] (5/325)) 1 tab Q6H PRN PO PAIN Last administered on 04/08/17 08:57; Admin Dose 1 TAB; Start 04/03/17 at 22:00 Acetaminophen (Tylenol Tab) 650 mg Q6H PRN PO PAIN AND OR ELEVATED TEMP; Start 04/03/17 at 22:00 Hydrocortisone (Cortef) 10 mg QAM PO Last administered on 04/08/17 08:57; Admin Dose 10 MG; Start 04/07/17 at 09:00 Levofloxacin (Levaquin) 500 mg DAILY@06 PO Last administered on 04/08/17 06: 41; Admin Dose 500 MG; Start 04/07/17 at 06:00; Stop 04/12/17 at 05:59 Amiodarone HCl (Cordarone) 200 mg DAILY PO Last administered on 04/08/17 08: 58; Admin Dose 200 MG; Start 04/07/17 at 09:00 Ondansetron HCl (Zofran Inj) 4 mg Q6H PRN IV NAUSEA AND/OR VOMITING Last administered on 04/06/17 13:10; Admin Dose 4 MG; Start 04/06/17 at 13:00 Lactobacillus Acidophilus (Florajen3 Capsule) 1 each BID PO Last administered on 04/07/17 20:42; Admin Dose 1 EACH; Start 04/06/17 at 21:00 Lactulose (Enulose) 20 gm DAILY PRN PO CONSTIPATION Last administered on 06:44; Admin Dose 20 GM; Start 04/07/17 at 10:30 Senna (Senokot) 2 tab DAILY PO Last administered on 04/08/17 08:58; Admin Dose 2 TAB; Start 04/08/17 at 09:00 Bisacodyl (Dulcolax Supp) 10 mg DAILY PRN [place] CONSTIPATION; Start 04/07/17 at 10:30 Liothyronine Sodium (Cytomel) 5 mcg DAILY PO Last administered on 04/08/17 08 :57; Admin Dose 5 MCG; Start 04/07/17 at 14:30 Linezolid (Zyvox) 600 mg BID PO Last administered on 04/08/17 08:57; Admin Dose 600 MG; Start 04/07/17 at 14:30; Stop 04/10/17 at 14:29 Diltiazem HCl (Cardizem Cd) 120 mg DAILY PO ; Start 04/08/17 at 09:38 Hydrocortisone (Cortef) 5 mg QHS PO ; Start 04/08/17 at 21:00 Assessment/Plan Chief Complaint/Hosp Course 86-year-old female who had workup for tachybradycardia syndrome with paroxysmal atrial fibrillation who also had undergone pacemaker placement is now transferred to ARU for rehabilitation. 1.Sick sinus syndrome with tachy-farzad syndrome. Currently stable. -Status post pacemaker placement on 03/31/2017. -Monitor. 2.Paroxysmal AFib WITH CHADS2 score of 2 -Continue amiodarone. Due to patient's increased fall risk, she refused to be on anticoagulation with Eliquis and recommendation was to continue aspirin 325 daily for anticoagulation. 3. Panhypopituitarism-status post surgery. -Requesting increased steroid dose. will adjust. 4.Hyperlipidemia -On statin. 5. Hypertension (POA) -Continue antihypertensives. 6. Bilateral pedal edema, likely lymphedema. Improving. Status: Chronic. -Continue low-dose thiazide diuretics which she takes as outpatient. Will monitor electrolyte level closely. -Negative DVT studies. 7. Positive UA with 3+ leukocyte esterase, 2 organisms, ID consult. DVT prophylaxis: Aspirin 325. Patient with increased fall risk and refused anticoagulation with Eliquis. Continue with physical therapy/cardiac rehabilitation. Problems: KAL LEMUS MD, [facility] Apr 08, 2017 14:51
[2017-04-08 15:37] LABS: CALCIUM 8.4 mg/dl (8.4-10.2); CREATININE 0.93 mg/dl (0.44-1.00); POTASSIUM 4.3 mmol/L (3.5-5.1)
[2017-04-08 20:00] VITALS: BP 140/49; RESP 18
[2017-04-08] MEDS ORDERED: FOSFOMYCIN 3 GM PACKET PO ONE (20:00)
[2017-04-08 21:00] VITALS: BP_SYST 114; BP_SYST 122; BP_SYST 136; BP_DIAS 50; BP_DIAS 52; BP_DIAS 53; PULSE 76
[2017-04-08] MEDS: ATORVASTATIN 20 MG TAB PO SCH (21:31)
[2017-04-09 04:00] VITALS: BP 138/65; RESP 18
[2017-04-09] MEDS: LEVOFLOXACIN 500 MG TAB PO SCH (06:23)
[2017-04-09] MEDS: LEVOTHYROXINE 88 MCG TAB PO SCH (06:23)
--- NOTE | 2017-04-09 06:23 | CONS ---
DATE OF ADMISSION: 04/03/2017 DATE OF CONSULTATION: 04/08/2017 TYPE OF CONSULTATION: Infectious disease consult. REASON FOR CONSULTATION: Antibiotic management. HISTORY OF PRESENT ILLNESS: Gretchen Foss is an 86-year-old female with a number of problems w ho was admitted to [facility] and is being seen for antibiotic management. Past problems include: 1. Hypertension. 2. Panhypopituitarism. 3. Hyperlipidemia. 4. History of hepatitis A. 5. Hypothyroidism. She was admitted to [facility] for a cardiac workup for sick sinus syndrome with a tachy-br adycardia syndrome and paroxysmal atrial fibrillation. She had a pacemaker placed on 03/31/2017. T he patient continued to have debility requiring further physical therapy. She, therefore, was place d in [facility]. On admission, her white count was 13,200, H and H of 10.9 and 31. 3. Urinalysis was positive for 3+ leukocyte esterase, WBCs and bacteria. She was started empirical ly on ceftriaxone. PAST MEDICAL HISTORY: Operations as outlined. FAMILY HISTORY: Noncontributory. SOCIAL HISTORY: She does not smoke, drink or abuse drugs. ALLERGIES: NONE TO PENICILLIN, SULFA OR FOODS. MEDICATIONS: Per chart. REVIEW OF SYSTEMS: As per HPI. PHYSICAL EXAMINATION: GENERAL: The patient is a well-developed, well-nourished female who is awake, in no acute distress. VITAL SIGNS: Stable. She is afebrile. SKIN: Without generalized rash. HEENT: Within normal limits. NECK: Supple. LYMPH NODES: None palpable. THORAX: She has a pacemaker in the left chest. HEART: Without murmur or gallop. ABDOMEN: Soft, nontender, without organosplenomegaly or masses. EXTREMITIES: Without cyanosis, clubbing, or edema. RECTAL AND GENITAL: Deferred. NEUROLOGICAL: No focal neurological abnormality LABORATORY DATA: On admission, her white count was 13.2. Mention that her BUN and creatinine was 1 0/0.66. Microbiology: She is growing out Enterobacter cloacae 30-40,000 colonies, vancomycin-resis tant Enterococcus. She is sensitive to fosfomycin and the enterobacter is sensitive to Cipro, also sensitive to cefepime, and she currently has been switched over to linezolid and Levaquin. She is s ensitive to fosfomycin, so so we can put her on oral fosfomycin, and I think that would be 1 dose an d that would be adequate. I will dictate my findings to the hospitalist and to Dr. Shore. Dictated By: ELVI ANDREWS MD, JD/MICAH Conf#: [id number] DID#: [id number] CC: KAYLEY MCKEON MD;*[facility]*
[2017-04-09 08:00] VITALS: BP 146/63; RESP 19
--- NOTE | 2017-04-09 08:31 | CONS ---
Date/Time of Note Date/Time of Note DATE: 04/09/17 TIME: 08:29 Assessment/Plan Assessment/Plan Chief Complaint/Hosp Course Orthostatic hypotension: Likely mildly volume depleted and on HCTZ as well as ? adrenal insufficiency. Hydrocortisone being adjusted SSS/tachy-farzad s/p PPM 03/31/17 Paroxysmal afib: by exam appears to be in sinus. On amio. On ASA instead of Eliquis by choice as she is afraid of falls HTN Panhypopituitarism -adjustment of hydrocortisone per endo -diltiazem 120mg as BP tolerates -amio 200mg daily -ASA Problems: Consultation Date/Type/Reason Admit Date/Time Apr 03, 2017 at 19:57 Initial Consult Date 04/06/17 Type of Consultation: Cardiology Referring Provider: TONYA ENRIQUEZ NP 24 HR Interval Summary Free Text/Dictation Still fluctuating BP. Wants to be on higher doses of hydrocortisone Exam/Review of Systems Vital Signs Vitals Vital Signs Date Time Temp Pulse Resp B/P Pulse Ox O2 Delivery O2 Flow Rate FiO2 04/09/17 04:00 97.8 83 18 138/65 97 04/08/17 02:15 Room Air 04/05/17 15:29 2.0 Intake and Output 04/08/17 04/08/17 04/09/17 15:00 23:00 07:00 Intake Total 1600 ml 400 ml Output Total 1000 ml Balance 600 ml 400 ml Exam Constitutional: alert, oriented Psych: nl mood/affect, no complaints Head: atraumatic, normocephalic Neck: No jvd Respiratory: clear to auscultation, No crackles/rales Neurological: nl mental status, nl speech Results Result Diagram: 04/08/17 1430 Results 24 hrs Laboratory Tests Test 04/08/17 14:30 Sodium Level 135 Potassium Level 4.3 Chloride Level 99 Carbon Dioxide Level 27 Anion Gap 13 Blood Urea Nitrogen 21 H Creatinine 0.93 Glucose Level 142 Calcium Level 8.4 Medications Medications Current Medications Aspirin (Aspirin) 325 mg DAILY PO Last administered on 04/08/17 08:57; Admin Dose 325 MG; Start 04/04/17 at 09:00 Magnesium Hydroxide (Milk Of Mag) 30 ml DAILY PRN PO CONSTIPATION Last administered on 04/06/17 15:19; Admin Dose 30 ML; Start 04/03/17 at 22:00 Atorvastatin Calcium (Lipitor) 20 mg DAILY@21 PO Last administered on 21:31; Admin Dose 20 MG; Start 04/03/17 at 21:30 Docusate Sodium (Colace) 100 mg Q12H PRN PO CONSTIPATION; Start 04/03/17 at 22 :00 Acetaminophen/ Hydrocodone Bitart ([place] (5/325)) 1 tab Q6H PRN PO PAIN Last administered on 04/08/17 08:57; Admin Dose 1 TAB; Start 04/03/17 at 22:00 Acetaminophen (Tylenol Tab) 650 mg Q6H PRN PO PAIN AND OR ELEVATED TEMP; Start 04/03/17 at 22:00 Hydrocortisone (Cortef) 10 mg QAM PO Last administered on 04/08/17 08:57; Admin Dose 10 MG; Start 04/07/17 at 09:00 Levofloxacin (Levaquin) 500 mg DAILY@06 PO Last administered on 04/09/17 06: 23; Admin Dose 500 MG; Start 04/07/17 at 06:00; Stop 04/12/17 at 05:59 Amiodarone HCl (Cordarone) 200 mg DAILY PO Last administered on 04/08/17 08: 58; Admin Dose 200 MG; Start 04/07/17 at 09:00 Ondansetron HCl (Zofran Inj) 4 mg Q6H PRN IV NAUSEA AND/OR VOMITING Last administered on 04/06/17 13:10; Admin Dose 4 MG; Start 04/06/17 at 13:00 Lactobacillus Acidophilus (Florajen3 Capsule) 1 each BID PO Last administered on 04/08/17 21:30; Admin Dose 1 EACH; Start 04/06/17 at 21:00 Lactulose (Enulose) 20 gm DAILY PRN PO CONSTIPATION Last administered on 06:44; Admin Dose 20 GM; Start 04/07/17 at 10:30 Senna (Senokot) 2 tab DAILY PO Last administered on 04/08/17 08:58; Admin Dose 2 TAB; Start 04/08/17 at 09:00 Bisacodyl (Dulcolax Supp) 10 mg DAILY PRN [place] CONSTIPATION; Start 04/07/17 at 10:30 Liothyronine Sodium (Cytomel) 5 mcg DAILY PO Last administered on 04/08/17 08 :57; Admin Dose 5 MCG; Start 04/07/17 at 14:30 Diltiazem HCl (Cardizem Cd) 120 mg DAILY PO ; Start 04/08/17 at 09:38 Hydrocortisone (Cortef) 5 mg QHS PO Last administered on 04/08/17 21:31; Admin Dose 5 MG; Start 04/08/17 at 21:00 GOMEZ SHANNON Apr 09, 2017 08:31
[2017-04-09] MEDS: ASPIRIN 325 MG TAB PO SCH (08:48)
[2017-04-09] MEDS: DILTIAZEM (CD) 120 MG CAP PO SCH (08:48)
[2017-04-09] MEDS: L ACIDOPHIL/B LACTIS/B LONGUM CAPSULE PO SCH ×2 (08:48→21:00)
[2017-04-09] MEDS: SENNA TAB PO SCH (08:49)
[2017-04-09] MEDS: HYDROCORTISONE 5 MG TAB PO SCH ×4 (08:49→21:00)
[2017-04-09] MEDS: LIOTHYRONINE 5 MCG TAB PO SCH (08:49)
[2017-04-09] MEDS: AMIODARONE 200 MG TAB PO SCH (08:50)
--- NOTE | 2017-04-09 10:10 | CONS ---
Date/Time of Note Date/Time of Note DATE: 04/09/17 TIME: 10:06 Assessment/Plan Assessment/Plan Chief Complaint/Hosp Course 86-year-old female who had workup for tachybradycardia syndrome with paroxysmal atrial fibrillation who also had undergone pacemaker placement is now transferred to ARU for rehabilitation. 1.Sick sinus syndrome with tachy-farzad syndrome. Currently stable. -Status post pacemaker placement on 03/31/2017. -Monitor. 2.Paroxysmal AFib WITH CHADS2 score of 2 -Continue amiodarone. Due to patient's increased fall risk, she refused to be on anticoagulation with Eliquis and recommendation was to continue aspirin 325 daily for anticoagulation. 3. Panhypopituitarism-status post surgery. -Monitor electrolyte level. -Steroid therapy titration per endocrinology. 4.Hyperlipidemia -On statin. 5. Hypertension -Continue antihypertensives. 6. Urinary tract infection. Urine culture with Enterobacter cloacae 30-40,000 colonies, vancomycin-resistant Enterococcus -ID evaluation appreciated. Patient received 1 dose of fosfomycin with the recommendation of 5 day oral fluoroquinolone. DVT prophylaxis: Aspirin 325. Patient with increased fall risk and refused anticoagulation with Eliquis. Continue with physical therapy/cardiac rehabilitation. Patient was seen in collaboration with . DVT prophylaxis: Aspirin 325. Patient with increased fall risk and refused anticoagulation with Eliquis. Continue with physical therapy/cardiac rehabilitation. Problems: Problems: Consultation Date/Type/Reason Admit Date/Time Apr 03, 2017 at 19:57 Type of Consultation: Cardiology Referring Provider: TONYA ENRIQUEZ NP 24 HR Interval Summary Free Text/Dictation No acute overnight episodes. Exam/Review of Systems Vital Signs Vitals Vital Signs Date Time Temp Pulse Resp B/P Pulse Ox O2 Delivery O2 Flow Rate FiO2 04/09/17 04:00 97.8 83 18 138/65 97 04/08/17 02:15 Room Air 04/05/17 15:29 2.0 Intake and Output 04/08/17 04/08/17 04/09/17 15:00 23:00 07:00 Intake Total 1600 ml 400 ml Output Total 1000 ml Balance 600 ml 400 ml Exam General: Well developed,adequately built, not in any acute distress . HEENT: Normocephalic, Atraumatic, No laceration or hematoma; Eyes: PEERL, Conjunctiva clear, Anicteric sclera Neck: Supple without any lymphadenopathy, nontender, no JVD, no carotid bruits, trachea midline, no thyromegaly Cardiac: With pacemaker to left chest wall. S1, S2 auscultated, regular rhythm and rate, no mumurs or gallop Pulmonary: Normal respiratory effort. Chest clear to auscultation bilaterally, no adventitious breath sounds GI: Abdomen obese to inspection. Soft, non tender, non- distended, no masses, no rebound tenderness or guarding. Bowel sounds active on all four quadrants Genitourinary: Deferred Extremities:+ Pedal edema/lymphedema. Pulses [2+] bilaterally. Full ROM on all four extremities. No focal weakness appreciated. Neurologic: Alert to person, place, time, and situation. Affect appropriate, intact sensation. Skin: Clean,dry, and intact. No ecchymosis, no rashes, or lesions Results Result Diagram: 04/08/17 1430 Results 24 hrs Laboratory Tests Test 04/08/17 14:30 Sodium Level 135 Potassium Level 4.3 Chloride Level 99 Carbon Dioxide Level 27 Anion Gap 13 Blood Urea Nitrogen 21 H Creatinine 0.93 Glucose Level 142 Calcium Level 8.4 Medications Medications Current Medications Aspirin (Aspirin) 325 mg DAILY PO Last administered on 04/09/17 08:48; Admin Dose 325 MG; Start 04/04/17 at 09:00 Magnesium Hydroxide (Milk Of Mag) 30 ml DAILY PRN PO CONSTIPATION Last administered on 04/06/17 15:19; Admin Dose 30 ML; Start 04/03/17 at 22:00 Atorvastatin Calcium (Lipitor) 20 mg DAILY@21 PO Last administered on 21:31; Admin Dose 20 MG; Start 04/03/17 at 21:30 Docusate Sodium (Colace) 100 mg Q12H PRN PO CONSTIPATION; Start 04/03/17 at 22 :00 Acetaminophen/ Hydrocodone Bitart ([place] (5/325)) 1 tab Q6H PRN PO PAIN Last administered on 04/08/17 08:57; Admin Dose 1 TAB; Start 04/03/17 at 22:00 Acetaminophen (Tylenol Tab) 650 mg Q6H PRN PO PAIN AND OR ELEVATED TEMP; Start 04/03/17 at 22:00 Hydrocortisone (Cortef) 10 mg QAM PO Last administered on 04/09/17 08:49; Admin Dose 10 MG; Start 04/07/17 at 09:00 Levofloxacin (Levaquin) 500 mg DAILY@06 PO Last administered on 04/09/17 06: 23; Admin Dose 500 MG; Start 04/07/17 at 06:00; Stop 04/12/17 at 05:59 Amiodarone HCl (Cordarone) 200 mg DAILY PO Last administered on 04/09/17 08: 50; Admin Dose 200 MG; Start 04/07/17 at 09:00 Ondansetron HCl (Zofran Inj) 4 mg Q6H PRN IV NAUSEA AND/OR VOMITING Last administered on 04/06/17 13:10; Admin Dose 4 MG; Start 04/06/17 at 13:00 Lactobacillus Acidophilus (Florajen3 Capsule) 1 each BID PO Last administered on 04/09/17 08:48; Admin Dose 1 EACH; Start 04/06/17 at 21:00 Lactulose (Enulose) 20 gm DAILY PRN PO CONSTIPATION Last administered on 06:44; Admin Dose 20 GM; Start 04/07/17 at 10:30 Senna (Senokot) 2 tab DAILY PO Last administered on 04/09/17 08:49; Admin Dose 2 TAB; Start 04/08/17 at 09:00 Bisacodyl (Dulcolax Supp) [address] CONSTIPATION; Start 04/07/17 at 10:30 Liothyronine Sodium (Cytomel) 5 mcg DAILY PO Last administered on 04/09/17 08 :49; Admin Dose 5 MCG; Start 04/07/17 at 14:30 Diltiazem HCl (Cardizem Cd) 120 mg DAILY PO Last administered on 04/09/17 08: 48; Admin Dose 120 MG; Start 04/08/17 at 09:38 Hydrocortisone (Cortef) 5 mg QHS PO Last administered on 04/08/17 21:31; Admin Dose 5 MG; Start 04/08/17 at 21:00 TONYA ENRIQUEZ NP Apr 09, 2017 10:10
--- NOTE | 2017-04-09 11:19 | CONS ---
Date/Time of Note Date/Time of Note DATE: 04/09/17 TIME: : Consult Date/Type/Reason Admit Date/Time Apr 03, 2017 at 19:57 Type of Consultation: Cardiology Ordering Provider: TONYA ENRIQUEZ NP Subjective Patient reports she is normally on higher does of cortif Objective pulm-cta mod assist Vital Signs Date Time Temp Pulse Resp B/P Pulse Ox O2 Delivery O2 Flow Rate FiO2 04/09/17 08:00 98.0 71 19 146/63 99 04/08/17 02:15 Room Air 04/05/17 15:29 2.0 Intake and Output 04/08/17 04/08/17 04/09/17 15:00 23:00 07:00 Intake Total 1600 ml 400 ml Output Total 1000 ml Balance 600 ml 400 ml Results/Medications Result Diagram: 04/08/17 1430 Results 24 hrs Laboratory Tests Test 04/08/17 14:30 Sodium Level 135 Potassium Level 4.3 Chloride Level 99 Carbon Dioxide Level 27 Anion Gap 13 Blood Urea Nitrogen 21 H Creatinine 0.93 Glucose Level 142 Calcium Level 8.4 Medications Current Medications Aspirin (Aspirin) 325 mg DAILY PO Last administered on 04/09/17 08:48; Admin Dose 325 MG; Start 04/04/17 at 09:00 Magnesium Hydroxide (Milk Of Mag) 30 ml DAILY PRN PO CONSTIPATION Last administered on 04/06/17 15:19; Admin Dose 30 ML; Start 04/03/17 at 22:00 Atorvastatin Calcium (Lipitor) 20 mg DAILY@21 PO Last administered on 21:31; Admin Dose 20 MG; Start 04/03/17 at 21:30 Docusate Sodium (Colace) 100 mg Q12H PRN PO CONSTIPATION; Start 04/03/17 at 22 :00 Acetaminophen/ Hydrocodone Bitart ([place] (5/325)) 1 tab Q6H PRN PO PAIN Last administered on 04/08/17 08:57; Admin Dose 1 TAB; Start 04/03/17 at 22:00 Acetaminophen (Tylenol Tab) 650 mg Q6H PRN PO PAIN AND OR ELEVATED TEMP; Start 04/03/17 at 22:00 Hydrocortisone (Cortef) 10 mg QAM PO Last administered on 04/09/17 08:49; Admin Dose 10 MG; Start 04/07/17 at 09:00 Levofloxacin (Levaquin) 500 mg DAILY@06 PO Last administered on 04/09/17 06: 23; Admin Dose 500 MG; Start 04/07/17 at 06:00; Stop 04/12/17 at 05:59 Amiodarone HCl (Cordarone) 200 mg DAILY PO Last administered on 04/09/17 08: 50; Admin Dose 200 MG; Start 04/07/17 at 09:00 Ondansetron HCl (Zofran Inj) 4 mg Q6H PRN IV NAUSEA AND/OR VOMITING Last administered on 04/06/17 13:10; Admin Dose 4 MG; Start 04/06/17 at 13:00 Lactobacillus Acidophilus (Florajen3 Capsule) 1 each BID PO Last administered on 04/09/17 08:48; Admin Dose 1 EACH; Start 04/06/17 at 21:00 Lactulose (Enulose) 20 gm DAILY PRN PO CONSTIPATION Last administered on 06:44; Admin Dose 20 GM; Start 04/07/17 at 10:30 Senna (Senokot) 2 tab DAILY PO Last administered on 04/09/17 08:49; Admin Dose 2 TAB; Start 04/08/17 at 09:00 Bisacodyl (Dulcolax Supp) 10 mg DAILY PRN [place] CONSTIPATION; Start 04/07/17 at 10:30 Liothyronine Sodium (Cytomel) 5 mcg DAILY PO Last administered on 04/09/17 08 :49; Admin Dose 5 MCG; Start 04/07/17 at 14:30 Diltiazem HCl (Cardizem Cd) 120 mg DAILY PO Last administered on 04/09/17 08: 48; Admin Dose 120 MG; Start 04/08/17 at 09:38 Hydrocortisone (Cortef) 5 mg QHS PO Last administered on 04/08/17 21:31; Admin Dose 5 MG; Start 04/08/17 at 21:00 Assessment/Plan Additional Assessment/Plan Rehab-Debility secondary to cardiac arrhythmia s/p pacemaker, hypokalemia, and multiple electrolyte abnormalities - improving Activities as tolerated Cardiac- f/b cardiology Panhypopituitarism-f/b endo Hypertension. Dyslipidemia. KAYLEY MCKEON MD Apr 09, 2017 11:19
--- NOTE | 2017-04-09 13:44 | CONS ---
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 Patient is under the care of Dr. Chito Chester as an outpatient. 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 Patient is not interested at this time and hearing of the rationale risks and benefits goals of treatments or mechanisms of treatment. In addition her family members at the bedside encouraged not to ask questions. I will place her back relatively on the same dosage that she was on however given the short serum half-life of the oral hydrocortisone this will be on a 3 times daily as opposed to twice daily basis. Again I have counseled the patient to discuss this with her primary network associate Dr. Chito Chetser as an outpatient. The normal dosing usually is 15-20 mg in 24 hours in divided dosing as opposed to 30 mg in a twice daily dosing (4) Paroxysmal atrial fibrillation with rapid ventricular response Status: Chronic Comment: Patient is on pharmacological treatment. (5) Tachy-farzad syndrome Status: Chronic Comment: Stable especially with the pacemaker as backup (6) Pacemaker Status: Acute Comment: Noted. (7) VRE (vancomycin resistant enterococcus) culture positive Status: Acute Comment: On appropriate antibiotic therapy repeat urine culture tomorrow Consultation Date/Type/Reason Admit Date/Time Apr 03, 2017 at 19:57 Initial Consult Date 04/06/17 Type of Consultation: Endocrinology Reason for Consultation Status post transsphenoidal hypophysectomy with central hypothyroidism; central adrenal insufficiency; on long-term steroids at a high dose of over to for 26 years Referring Provider: TONYA ENRIQUEZ NP 24 HR Interval Summary Free Text/Dictation Patient declines to discuss the pharmacology physiology pathophysiology or issues regarding timing and dosing of hydrocortisone and demands to be returned to her original dosing. Please note she was not on her original dosing at any point during the hospitalization Constitutional: no complaints Detailed Summary Respiratory: no complaints Cardiovascular: no complaints Gastrointestinal: no complaints Exam/Review of Systems Vital Signs Vitals Vital Signs Date Time Temp Pulse Resp B/P Pulse Ox O2 Delivery O2 Flow Rate FiO2 04/09/17 08:00 98.0 71 19 146/63 99 04/08/17 02:15 Room Air 04/05/17 15:29 2.0 Intake and Output 04/08/17 04/08/17 04/09/17 15:00 23:00 07:00 Intake Total 1600 ml 400 ml Output Total 1000 ml Balance 600 ml 400 ml Exam Constitutional: alert, oriented Neck: non-tender, supple Respiratory: clear to auscultation, normal air movement Results Result Diagram: 04/08/17 1430 Results 24 hrs Laboratory Tests Test 04/08/17 14:30 Sodium Level 135 Potassium Level 4.3 Chloride Level 99 Carbon Dioxide Level 27 Anion Gap 13 Blood Urea Nitrogen 21 H Creatinine 0.93 Glucose Level 142 Calcium Level 8.4 Medications Medications Current Medications Aspirin (Aspirin) 325 mg DAILY PO Last administered on 04/09/17 08:48; Admin Dose 325 MG; Start 04/04/17 at 09:00 Magnesium Hydroxide (Milk Of Mag) 30 ml DAILY PRN PO CONSTIPATION Last administered on 04/06/17 15:19; Admin Dose 30 ML; Start 04/03/17 at 22:00 Atorvastatin Calcium (Lipitor) 20 mg DAILY@21 PO Last administered on 21:31; Admin Dose 20 MG; Start 04/03/17 at 21:30 Docusate Sodium (Colace) 100 mg Q12H PRN PO CONSTIPATION; Start 04/03/17 at 22 :00 Acetaminophen/ Hydrocodone Bitart ([place] (5/325)) 1 tab Q6H PRN PO PAIN Last administered on 04/08/17 08:57; Admin Dose 1 TAB; Start 04/03/17 at 22:00 Acetaminophen (Tylenol Tab) 650 mg Q6H PRN PO PAIN AND OR ELEVATED TEMP; Start 04/03/17 at 22:00 Hydrocortisone (Cortef) 10 mg QAM PO Last administered on 04/09/17 08:49; Admin Dose 10 MG; Start 04/07/17 at 09:00 Levofloxacin (Levaquin) 500 mg DAILY@06 PO Last administered on 04/09/17 06: 23; Admin Dose 500 MG; Start 04/07/17 at 06:00; Stop 04/12/17 at 05:59 Amiodarone HCl (Cordarone) 200 mg DAILY PO Last administered on 04/09/17 08: 50; Admin Dose 200 MG; Start 04/07/17 at 09:00 Ondansetron HCl (Zofran Inj) 4 mg Q6H PRN IV NAUSEA AND/OR VOMITING Last administered on 04/06/17 13:10; Admin Dose 4 MG; Start 04/06/17 at 13:00 Lactobacillus Acidophilus (Florajen3 Capsule) 1 each BID PO Last administered on 04/09/17 08:48; Admin Dose 1 EACH; Start 04/06/17 at 21:00 Lactulose (Enulose) 20 gm DAILY PRN PO CONSTIPATION Last administered on 06:44; Admin Dose 20 GM; Start 04/07/17 at 10:30 Senna (Senokot) 2 tab DAILY PO Last administered on 04/09/17 08:49; Admin Dose 2 TAB; Start 04/08/17 at 09:00 Bisacodyl (Dulcolax Supp) 10 mg DAILY PRN [place] CONSTIPATION; Start 04/07/17 at 10:30 Liothyronine Sodium (Cytomel) 5 mcg DAILY PO Last administered on 04/09/17 08 :49; Admin Dose 5 MCG; Start 04/07/17 at 14:30 Diltiazem HCl (Cardizem Cd) 120 mg DAILY PO Last administered on 04/09/17 08: 48; Admin Dose 120 MG; Start 04/08/17 at 09:38 Hydrocortisone (Cortef) 5 mg QHS PO Last administered on 04/08/17 21:31; Admin Dose 5 MG; Start 04/08/17 at 21:00 AMY PEARSON MD Apr 09, 2017 13:44
--- NOTE | 2017-04-09 20:34 | PN ---
DATE: 04/09/2017 SUBJECTIVE: No acute events overnight. The patient is alert, feels good. Denies pain, no fevers. No labs this morning. ANTIMICROBIALS: She is on levofloxacin. MICROBIOLOGY: Urine culture on admission grew Enterobacter cloacae and VRE. The patient received F osfomycin dose and received also Zyvox. PHYSICAL EXAMINATION: GENERAL: Well-developed, elderly woman who is alert, in no distress. HEENT: Head atraumatic, normocephalic. Sclerae anicteric. Buccal mucosa dry. NECK: Supple. CHEST: Rise symmetrical. Breath sounds clear. HEART: S1, S2. ABDOMEN: Soft. Bowel tones present. EXTREMITIES: No cyanosis. ASSESSMENT: 1. Urinary tract infection, in treatment. 2. Paroxysmal atrial fibrillation. 3. Coronary artery disease with a history of permanent pacemaker placement. 4. Hypopituitarism, status post surgery, on steroid therapy per endocrinology. PLAN: The patient remains stable. Continue Levaquin for a couple more days. Continue management a s per primary team and consultants. Dictated By: AKILA ALFONSO FLOOR SPECIALIST for ELVI ANDREWS MD NI/NTS Conf#: [id number] DID#: [id number] CC: ROMANA MCKEON MD;*End*
[2017-04-09 20:57] VITALS: BP 146/63; PULSE 71; RESP 17
[2017-04-09] MEDS: ATORVASTATIN 20 MG TAB PO SCH (21:00)
[2017-04-10] MEDS: LEVOTHYROXINE 88 MCG TAB PO SCH (07:03)
[2017-04-10] MEDS: LEVOFLOXACIN 500 MG TAB PO SCH (07:03)
[2017-04-10 08:13] VITALS: BP 121/80; PULSE 77
--- NOTE | 2017-04-10 08:42 | CONS ---
Date/Time of Note Date/Time of Note DATE: 04/10/17 TIME: 08:39 Assessment/Plan Assessment/Plan Problems: (1) History of hypophysectomy Onset Date: ~ 03/1982 Status: Chronic Comment: Patient had a remote history of a hypophysis ectomy with ablation of pituitary function without diabetes insipidus. She is on hydrocortisone replacement therapy at above physiologic dosages while she is in the hospital. Please note there is no active immediate stress or present at this time. I will recheck to her regular cushion installer Dr. 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 Protecting from tachybradycardia syndrome (6) Tachy-farzad syndrome Status: Chronic Comment: Has a pacemaker in (7) Paroxysmal atrial fibrillation with rapid ventricular response Status: Chronic Comment: Controlled with medications (8) VRE (vancomycin resistant enterococcus) culture positive Status: Acute Comment: Repeat culture today Consultation Date/Type/Reason Admit Date/Time Apr 03, 2017 at 19:57 Initial Consult Date 04/06/17 Type of Consultation: Endocrinology Reason for Consultation Status post pituitary surgery with panhypopituitarism. Referring Provider: TONYA ENRIQUEZ NP 24 HR Interval Summary Free Text/Dictation Patient vigorously and aggressively complains that she wants more cortisone. Is not possible to get a word in edgewise in the conversation Constitutional: no complaints (Denies fevers chills or sweats) Detailed Summary Respiratory: no complaints Cardiovascular: no complaints Gastrointestinal: no complaints Exam/Review of Systems Vital Signs Vitals Vital Signs Date Time Temp Pulse Resp B/P Pulse Ox O2 Delivery O2 Flow Rate FiO2 04/10/17 08:13 98.7 77 121/80 04/09/17 20:57 17 97 Room Air Intake and Output 04/09/17 04/09/17 04/10/17 15:00 23:00 07:00 Intake Total 200 ml Output Total 850 ml Balance -850 ml 200 ml Exam Constitutional: alert, oriented Neck: non-tender, supple Respiratory: clear to auscultation, normal air movement Cardiovascular: nl pulses, regular rate and rhythm Results Result Diagram: 04/08/17 1430 Medications Medications Current Medications Aspirin (Aspirin) 325 mg DAILY PO Last administered on 04/09/17 08:48; Admin Dose 325 MG; Start 04/04/17 at 09:00 Magnesium Hydroxide (Milk Of Mag) 30 ml DAILY PRN PO CONSTIPATION Last administered on 04/06/17 15:19; Admin Dose 30 ML; Start 04/03/17 at 22:00 Atorvastatin Calcium (Lipitor) 20 mg DAILY@21 PO Last administered on 21:00; Admin Dose 20 MG; Start 04/03/17 at 21:30 Docusate Sodium (Colace) 100 mg Q12H PRN PO CONSTIPATION; Start 04/03/17 at 22 :00 Acetaminophen/ Hydrocodone Bitart ([place] (5/325)) 1 tab Q6H PRN PO PAIN Last administered on 04/08/17 08:57; Admin Dose 1 TAB; Start 04/03/17 at 22:00 Acetaminophen (Tylenol Tab) 650 mg Q6H PRN PO PAIN AND OR ELEVATED TEMP; Start 04/03/17 at 22:00 Levofloxacin (Levaquin) 500 mg DAILY@06 PO Last administered on 04/10/17 07: 03; Admin Dose 500 MG; Start 04/07/17 at 06:00; Stop 04/12/17 at 05:59 Amiodarone HCl (Cordarone) 200 mg DAILY PO Last administered on 04/09/17 08: 50; Admin Dose 200 MG; Start 04/07/17 at 09:00 Ondansetron HCl (Zofran Inj) 4 mg Q6H PRN IV NAUSEA AND/OR VOMITING Last administered on 04/06/17 13:10; Admin Dose 4 MG; Start 04/06/17 at 13:00 Lactobacillus Acidophilus (Florajen3 Capsule) 1 each BID PO Last administered on 04/09/17 08:48; Admin Dose 1 EACH; Start 04/06/17 at 21:00 Lactulose (Enulose) 20 gm DAILY PRN PO CONSTIPATION Last administered on 06:44; Admin Dose 20 GM; Start 04/07/17 at 10:30 Senna (Senokot) 2 tab DAILY PO Last administered on 04/09/17 08:49; Admin Dose 2 TAB; Start 04/08/17 at 09:00 Bisacodyl (Dulcolax Supp) 10 mg DAILY PRN [place] CONSTIPATION; Start 04/07/17 at 10:30 Liothyronine Sodium (Cytomel) 5 mcg DAILY PO Last administered on 04/09/17 08 :49; Admin Dose 5 MCG; Start 04/07/17 at 14:30 Diltiazem HCl (Cardizem Cd) 120 mg DAILY PO Last administered on 04/09/17 08: 48; Admin Dose 120 MG; Start 04/08/17 at 09:38 Hydrocortisone (Cortef) 5 mg QHS PO Last administered on 04/09/17 21:00; Admin Dose 5 MG; Start 04/08/17 at 21:00 Hydrocortisone (Cortef) 15 mg QAM PO ; Start 04/10/17 at 09:00 AMY PEARSON MD Apr 10, 2017 08:42
[2017-04-10] MEDS: SENNA TAB PO SCH (09:48)
[2017-04-10] MEDS: ASPIRIN 325 MG TAB PO SCH (09:48)
[2017-04-10] MEDS: HYDROCORTISONE 5 MG TAB PO SCH ×3 (09:48→20:33)
[2017-04-10] MEDS: LIOTHYRONINE 5 MCG TAB PO SCH (09:49)
[2017-04-10] MEDS: L ACIDOPHIL/B LACTIS/B LONGUM CAPSULE PO SCH ×2 (09:49→20:33)
[2017-04-10] MEDS: DILTIAZEM (CD) 120 MG CAP PO SCH (09:57)
[2017-04-10] MEDS: AMIODARONE 200 MG TAB PO SCH (09:57)
--- NOTE | 2017-04-10 10:37 | CONS ---
Date/Time of Note Date/Time of Note DATE: 04/10/17 TIME: 10:35 Assessment/Plan Assessment/Plan Chief Complaint/Hosp Course 86-year-old female who had workup for tachybradycardia syndrome with paroxysmal atrial fibrillation who also had undergone pacemaker placement is now transferred to ARU for rehabilitation. 1.Sick sinus syndrome with tachy-farzad syndrome. Currently stable. -Status post pacemaker placement on 03/31/2017. -Monitor. 2.Paroxysmal AFib WITH CHADS2 score of 2 -Continue amiodarone. Due to patient's increased fall risk, she refused to be on anticoagulation with Eliquis and recommendation was to continue aspirin 325 daily for anticoagulation. 3. Panhypopituitarism-status post surgery. -Monitor electrolyte level. -Steroid therapy titration per endocrinology. 4.Hyperlipidemia -On statin. 5. Hypertension -Continue antihypertensives. 6. Urinary tract infection. Urine culture with Enterobacter cloacae 30-40,000 colonies, vancomycin-resistant Enterococcus -ID on board and received 1 dose of fosfomycin with the recommendation of 5 day oral fluoroquinolone. DVT prophylaxis: Aspirin 325. Patient with increased fall risk and refused anticoagulation with Eliquis. Continue with physical therapy/cardiac rehabilitation. Patient was seen in collaboration with . DVT prophylaxis: Aspirin 325. Patient with increased fall risk and refused anticoagulation with Eliquis. Continue with physical therapy/cardiac rehabilitation. Problems: Problems: Consultation Date/Type/Reason Admit Date/Time Apr 03, 2017 at 19:57 Type of Consultation: Endocrinology Referring Provider: TONYA ENRIQUEZ NP 24 HR Interval Summary Free Text/Dictation Patient not in acute distress. She is getting up with the physical therapist. Exam/Review of Systems Vital Signs Vitals Vital Signs Date Time Temp Pulse Resp B/P Pulse Ox O2 Delivery O2 Flow Rate FiO2 04/10/17 08:13 98.7 77 121/80 04/09/17 20:57 17 97 Room Air Intake and Output 04/09/17 04/09/17 04/10/17 15:00 23:00 07:00 Intake Total 200 ml Output Total 850 ml Balance -850 ml 200 ml Exam General: Well developed,adequately built, not in any acute distress . HEENT: Normocephalic, Atraumatic, No laceration or hematoma; Eyes: PEERL, Conjunctiva clear, Anicteric sclera Neck: Supple without any lymphadenopathy, nontender, no JVD, no carotid bruits, trachea midline, no thyromegaly Cardiac: With pacemaker to left chest wall. S1, S2 auscultated, regular rhythm and rate, no mumurs or gallop Pulmonary: Normal respiratory effort. Chest clear to auscultation bilaterally, no adventitious breath sounds GI: Abdomen obese to inspection. Soft, non tender, non- distended, no masses, no rebound tenderness or guarding. Bowel sounds active on all four quadrants Genitourinary: Deferred Extremities:+ Pedal edema/lymphedema. Pulses [2+] bilaterally. Full ROM on all four extremities. No focal weakness appreciated. Neurologic: Alert to person, place, time, and situation. Affect appropriate, intact sensation. Skin: Clean,dry, and intact. No ecchymosis, no rashes, or lesions Results Result Diagram: 04/08/17 1430 Medications Medications Current Medications Aspirin (Aspirin) 325 mg DAILY PO Last administered on 04/10/17 09:48; Admin Dose 325 MG; Start 04/04/17 at 09:00 Magnesium Hydroxide (Milk Of Mag) 30 ml DAILY PRN PO CONSTIPATION Last administered on 04/06/17 15:19; Admin Dose 30 ML; Start 04/03/17 at 22:00 Atorvastatin Calcium (Lipitor) 20 mg DAILY@21 PO Last administered on 21:00; Admin Dose 20 MG; Start 04/03/17 at 21:30; Status Future Hold Docusate Sodium (Colace) 100 mg Q12H PRN PO CONSTIPATION; Start 04/03/17 at 22 :00 Acetaminophen/ Hydrocodone Bitart ([place] (5/325)) 1 tab Q6H PRN PO PAIN Last administered on 04/08/17 08:57; Admin Dose 1 TAB; Start 04/03/17 at 22:00 Acetaminophen (Tylenol Tab) 650 mg Q6H PRN PO PAIN AND OR ELEVATED TEMP; Start 04/03/17 at 22:00 Levofloxacin (Levaquin) 500 mg DAILY@06 PO Last administered on 04/10/17 07: 03; Admin Dose 500 MG; Start 04/07/17 at 06:00; Stop 04/12/17 at 05:59 Amiodarone HCl (Cordarone) 200 mg DAILY PO Last administered on 04/10/17 09: 57; Admin Dose 200 MG; Start 04/07/17 at 09:00 Ondansetron HCl (Zofran Inj) 4 mg Q6H PRN IV NAUSEA AND/OR VOMITING Last administered on 04/06/17 13:10; Admin Dose 4 MG; Start 04/06/17 at 13:00 Lactobacillus Acidophilus (Florajen3 Capsule) 1 each BID PO Last administered on 04/10/17 09:49; Admin Dose 1 EACH; Start 04/06/17 at 21:00 Lactulose (Enulose) 20 gm DAILY PRN PO CONSTIPATION Last administered on 06:44; Admin Dose 20 GM; Start 04/07/17 at 10:30 Senna (Senokot) 2 tab DAILY PO Last administered on 04/10/17 09:48; Admin Dose 2 TAB; Start 04/08/17 at 09:00 Bisacodyl (Dulcolax Supp) 10 mg DAILY PRN [place] CONSTIPATION; Start 04/07/17 at 10:30 Liothyronine Sodium (Cytomel) 5 mcg DAILY PO Last administered on 04/10/17 09 :49; Admin Dose 5 MCG; Start 04/07/17 at 14:30 Diltiazem HCl (Cardizem Cd) 120 mg DAILY PO Last administered on 04/10/17 09: 57; Admin Dose 120 MG; Start 04/08/17 at 09:38 Hydrocortisone (Cortef) 5 mg QHS PO Last administered on 04/09/17 21:00; Admin Dose 5 MG; Start 04/08/17 at 21:00 Hydrocortisone (Cortef) 15 mg QAM PO Last administered on 04/10/17 09:48; Admin Dose 15 MG; Start 04/10/17 at 09:00 TONYA ENRIQUEZ NP Apr 10, 2017 10:37
--- NOTE | 2017-04-10 10:59 | CONS ---
Date/Time of Note Date/Time of Note DATE: 04/10/17 TIME: 10:58 Consult Date/Type/Reason Admit Date/Time Apr 03, 2017 at 19:57 Type of Consultation: Endocrinology Ordering Provider: TONYA ENRIQUEZ NP Subjective Feeling better today. Objective pulm-cta mod assist ambulation Vital Signs Date Time Temp Pulse Resp B/P Pulse Ox O2 Delivery O2 Flow Rate FiO2 04/10/17 08:13 98.7 77 121/80 04/09/17 20:57 17 97 Room Air Intake and Output 04/09/17 04/09/17 04/10/17 14:59 22:59 06:59 Intake Total 200 ml Output Total 850 ml Balance -850 ml 200 ml Results/Medications Result Diagram: 04/08/17 1430 Medications Current Medications Aspirin (Aspirin) 325 mg DAILY PO Last administered on 04/10/17 09:48; Admin Dose 325 MG; Start 04/04/17 at 09:00 Magnesium Hydroxide (Milk Of Mag) 30 ml DAILY PRN PO CONSTIPATION Last administered on 04/06/17 15:19; Admin Dose 30 ML; Start 04/03/17 at 22:00 Atorvastatin Calcium (Lipitor) 20 mg DAILY@21 PO Last administered on 21:00; Admin Dose 20 MG; Start 04/03/17 at 21:30; Status Future Hold Docusate Sodium (Colace) 100 mg Q12H PRN PO CONSTIPATION; Start 04/03/17 at 22 :00 Acetaminophen/ Hydrocodone Bitart ([place] (5/325)) 1 tab Q6H PRN PO PAIN Last administered on 04/08/17 08:57; Admin Dose 1 TAB; Start 04/03/17 at 22:00 Acetaminophen (Tylenol Tab) 650 mg Q6H PRN PO PAIN AND OR ELEVATED TEMP; Start 04/03/17 at 22:00 Levofloxacin (Levaquin) 500 mg DAILY@06 PO Last administered on 04/10/17 07: 03; Admin Dose 500 MG; Start 04/07/17 at 06:00; Stop 04/12/17 at 05:59 Amiodarone HCl (Cordarone) 200 mg DAILY PO Last administered on 04/10/17 09: 57; Admin Dose 200 MG; Start 04/07/17 at 09:00 Ondansetron HCl (Zofran Inj) 4 mg Q6H PRN IV NAUSEA AND/OR VOMITING Last administered on 04/06/17 13:10; Admin Dose 4 MG; Start 04/06/17 at 13:00 Lactobacillus Acidophilus (Florajen3 Capsule) 1 each BID PO Last administered on 04/10/17 09:49; Admin Dose 1 EACH; Start 04/06/17 at 21:00 Lactulose (Enulose) 20 gm DAILY PRN PO CONSTIPATION Last administered on 06:44; Admin Dose 20 GM; Start 04/07/17 at 10:30 Senna (Senokot) 2 tab DAILY PO Last administered on 04/10/17 09:48; Admin Dose 2 TAB; Start 04/08/17 at 09:00 Bisacodyl (Dulcolax Supp) 10 mg DAILY PRN [place] CONSTIPATION; Start 04/07/17 at 10:30 Liothyronine Sodium (Cytomel) 5 mcg DAILY PO Last administered on 04/10/17 09 :49; Admin Dose 5 MCG; Start 04/07/17 at 14:30 Diltiazem HCl (Cardizem Cd) 120 mg DAILY PO Last administered on 04/10/17 09: 57; Admin Dose 120 MG; Start 04/08/17 at 09:38 Hydrocortisone (Cortef) 5 mg QHS PO Last administered on 04/09/17 21:00; Admin Dose 5 MG; Start 04/08/17 at 21:00 Hydrocortisone (Cortef) 15 mg QAM PO Last administered on 04/10/17 09:48; Admin Dose 15 MG; Start 04/10/17 at 09:00 Assessment/Plan Additional Assessment/Plan Rehab-Debility secondary to cardiac arrhythmia s/p pacemaker, hypokalemia, and multiple electrolyte abnormalities - improving Activities as tolerated. Was able to ambulate today Cardiac- f/b cardiology Panhypopituitarism-f/b endo Hypertension. Dyslipidemia. KAYLEY MCKEON MD Apr 10, 2017 10:59
[2017-04-10 12:20] LABS: CALCIUM 8.2 mg/dl (8.4-10.2); CREATININE 0.88 mg/dl (0.44-1.00); POTASSIUM 3.6 mmol/L (3.5-5.1)
[2017-04-10 20:20] VITALS: BP 135/62; PULSE 79; RESP 20
[2017-04-11] MEDS: LEVOTHYROXINE 88 MCG TAB PO SCH (05:45)
[2017-04-11] MEDS: LEVOFLOXACIN 500 MG TAB PO SCH (05:45)
[2017-04-11 07:51] VITALS: BP 136/62; PULSE 79; RESP 20
[2017-04-11] MEDS: HYDROCODONE/APAP (5/325) TAB PO PRN (08:28)
[2017-04-11] MEDS: HYDROCORTISONE 5 MG TAB PO SCH ×3 (08:29→20:42)
[2017-04-11] MEDS: AMIODARONE 200 MG TAB PO SCH (08:29)
[2017-04-11] MEDS: ASPIRIN 325 MG TAB PO SCH (08:30)
[2017-04-11] MEDS: LIOTHYRONINE 5 MCG TAB PO SCH (08:30)
[2017-04-11] MEDS: DILTIAZEM (CD) 120 MG CAP PO SCH (08:30)
[2017-04-11] MEDS: L ACIDOPHIL/B LACTIS/B LONGUM CAPSULE PO SCH ×2 (08:30→20:42)
--- NOTE | 2017-04-11 08:39 | CONS ---
Date/Time of Note Date/Time of Note DATE: 04/11/17 TIME: 08:33 Assessment/Plan Assessment/Plan Problems: (1) Tachy-farzad syndrome Status: Chronic Comment: This is well controlled by medications and by having a pacemaker on backup so she will not bradycardic into an issue. Continue treatment and especially recovery process (2) Pacemaker Onset Date: ~ 03/31/2017 Status: Acute Comment: Fully operational as per cardiology. Rehabilitation with plan for discharge in the near future (3) History of hypophysectomy Onset Date: ~ 03/1982 Status: Chronic Comment: Noted. 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 Chito Chester by telephone. I left messages with his office staff twice but unfortunately was not contacted back. 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 Her free T4 was in the normal range but her free T3 was low. I have adjusted her intake to have a combination of replacement with T4 and T3 which would stabilize this. This is a less typical regimen but this is less typical situation. 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 She is on a somewhat supraphysiologic dose. I have gone to a 3 times daily based regimen and That same number of total milligrams even though she is not presently under physiologic stress. This is based upon the patient's fervent demands and not to have dosages reduced and my inability to discuss this with her regular wax blender. Please note we do not do bone density screening test in the hospital (6) VRE (vancomycin resistant enterococcus) culture positive Status: Acute Comment: Repeat cultures pending at this moment (7) Mild aortic stenosis by prior echocardiogram Status: Chronic Comment: Noted. No symptoms (8) Hyperlipidemia Status: Chronic Comment: Stable. The patient reports that she has actually been on statins for several decades. 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 Constitutional: no complaints (No fevers chills or sweats) Detailed Summary Respiratory: no complaints Cardiovascular: no complaints Gastrointestinal: no complaints Genitourinary: no complaints Neurologic: no complaints Exam/Review of Systems Vital Signs Vitals Vital Signs Date Time Temp Pulse Resp B/P Pulse Ox O2 Delivery O2 Flow Rate FiO2 04/11/17 07:51 98.0 79 20 136/62 97 Room Air Intake and Output 04/10/17 04/10/17 04/11/17 15:00 23:00 07:00 Intake Total 500 ml 360 ml Balance 500 ml 360 ml Exam Constitutional: alert, oriented Neck: non-tender, supple Respiratory: clear to auscultation, normal air movement Cardiovascular: nl pulses, regular rate and rhythm Gastrointestinal: nl liver, spleen, non-tender, soft Extremities: normal pulses Results Result Diagram: 04/10/17 1056 Results 24 hrs Laboratory Tests Test 04/10/17 10:56 Sodium Level 137 Potassium Level 3.6 Chloride Level 102 Carbon Dioxide Level 26 Anion Gap 13 Blood Urea Nitrogen 17 Creatinine 0.88 Glucose Level 97 # Calcium Level 8.2 L Medications Medications Current Medications Aspirin (Aspirin) 325 mg DAILY PO Last administered on 04/11/17 08:30; Admin Dose 325 MG; Start 04/04/17 at 09:00 Magnesium Hydroxide (Milk Of Mag) 30 ml DAILY PRN PO CONSTIPATION Last administered on 04/06/17 15:19; Admin Dose 30 ML; Start 04/03/17 at 22:00 Atorvastatin Calcium (Lipitor) 20 mg DAILY@21 PO Last administered on 21:00; Admin Dose 20 MG; Start 04/03/17 at 21:30; Status Future Hold Docusate Sodium (Colace) 100 mg Q12H PRN PO CONSTIPATION; Start 04/03/17 at 22 :00 Acetaminophen/ Hydrocodone Bitart ([place] (5/325)) 1 tab Q6H PRN PO PAIN Last administered on 04/11/17 08:28; Admin Dose 1 TAB; Start 04/03/17 at 22:00 Acetaminophen (Tylenol Tab) 650 mg Q6H PRN PO PAIN AND OR ELEVATED TEMP; Start 04/03/17 at 22:00 Levofloxacin (Levaquin) 500 mg DAILY@06 PO Last administered on 04/11/17 05: 45; Admin Dose 500 MG; Start 04/07/17 at 06:00; Stop 04/12/17 at 05:59 Amiodarone HCl (Cordarone) 200 mg DAILY PO Last administered on 04/11/17 08: 29; Admin Dose 200 MG; Start 04/07/17 at 09:00 Ondansetron HCl (Zofran Inj) 4 mg Q6H PRN IV NAUSEA AND/OR VOMITING Last administered on 04/06/17 13:10; Admin Dose 4 MG; Start 04/06/17 at 13:00 Lactobacillus Acidophilus (Florajen3 Capsule) 1 each BID PO Last administered on 04/11/17 08:30; Admin Dose 1 EACH; Start 04/06/17 at 21:00 Lactulose (Enulose) 20 gm DAILY PRN PO CONSTIPATION Last administered on 06:44; Admin Dose 20 GM; Start 04/07/17 at 10:30 Senna (Senokot) 2 tab DAILY PO Last administered on 04/10/17 09:48; Admin Dose 2 TAB; Start 04/08/17 at 09:00 Bisacodyl (Dulcolax Supp) 10 mg DAILY PRN [place] CONSTIPATION; Start 04/07/17 at 10:30 Liothyronine Sodium (Cytomel) 5 mcg DAILY PO Last administered on 04/11/17 08 :30; Admin Dose 5 MCG; Start 04/07/17 at 14:30 Diltiazem HCl (Cardizem Cd) 120 mg DAILY PO Last administered on 04/11/17 08: 30; Admin Dose 120 MG; Start 04/08/17 at 09:38 Hydrocortisone (Cortef) 5 mg QHS PO Last administered on 04/10/17 20:33; Admin Dose 5 MG; Start 04/08/17 at 21:00 Hydrocortisone (Cortef) 15 mg QAM PO Last administered on 04/11/17 08:29; Admin Dose 15 MG; Start 04/10/17 at 09:00 AMY PEARSON MD Apr 11, 2017 08:38
[2017-04-11] MEDS: SENNA TAB PO SCH (09:00)
--- NOTE | 2017-04-11 09:25 | CONS ---
Date/Time of Note Date/Time of Note DATE: 04/11/17 TIME: :22 Assessment/Plan Assessment/Plan Chief Complaint/Hosp Course Orthostatic hypotension: Likely mildly volume depleted and on HCTZ as well as ? adrenal insufficiency. Hydrocortisone adjusted. No recurrence SSS/tachy-farzad s/p PPM 03/31/17 Paroxysmal afib: by exam appears to be in sinus. On amio. On ASA instead of Eliquis by choice as she is afraid of falls HTN Panhypopituitarism -diltiazem 120mg as BP tolerates -amio 200mg daily -ASA Problems: Consultation Date/Type/Reason Admit Date/Time Apr 03, 2017 at 19:57 Initial Consult Date 04/06/17 Type of Consultation: Cardiology Referring Provider: TONYA ENRIQUEZ NP 24 HR Interval Summary Free Text/Dictation No o/n events. No further hypotension Exam/Review of Systems Vital Signs Vitals Vital Signs Date Time Temp Pulse Resp B/P Pulse Ox O2 Delivery O2 Flow Rate FiO2 04/11/17 07:51 98.0 79 20 136/62 97 Room Air Intake and Output 04/10/17 04/10/17 04/11/17 15:00 23:00 07:00 Intake Total 500 ml 360 ml Balance 500 ml 360 ml Exam Constitutional: alert, oriented Psych: nl mood/affect, no complaints Head: atraumatic, normocephalic Neck: No jvd Respiratory: clear to auscultation, No crackles/rales Cardiovascular: regular rate and rhythm, No edema Gastrointestinal: non-tender, soft Results Result Diagram: 04/10/17 1056 Results 24 hrs Laboratory Tests Test 04/10/17 10:56 Sodium Level 137 Potassium Level 3.6 Chloride Level 102 Carbon Dioxide Level 26 Anion Gap 13 Blood Urea Nitrogen 17 Creatinine 0.88 Glucose Level 97 # Calcium Level 8.2 L Medications Medications Current Medications Aspirin (Aspirin) 325 mg DAILY PO Last administered on 04/11/17 08:30; Admin Dose 325 MG; Start 04/04/17 at 09:00 Magnesium Hydroxide (Milk Of Mag) 30 ml DAILY PRN PO CONSTIPATION Last administered on 04/06/17 15:19; Admin Dose 30 ML; Start 04/03/17 at 22:00 Atorvastatin Calcium (Lipitor) 20 mg DAILY@21 PO Last administered on 21:00; Admin Dose 20 MG; Start 04/03/17 at 21:30; Status Future Hold Docusate Sodium (Colace) 100 mg Q12H PRN PO CONSTIPATION; Start 04/03/17 at 22 :00 Acetaminophen/ Hydrocodone Bitart ([place] (5/325)) 1 tab Q6H PRN PO PAIN Last administered on 04/11/17 08:28; Admin Dose 1 TAB; Start 04/03/17 at 22:00 Acetaminophen (Tylenol Tab) 650 mg Q6H PRN PO PAIN AND OR ELEVATED TEMP; Start 04/03/17 at 22:00 Levofloxacin (Levaquin) 500 mg DAILY@06 PO Last administered on 04/11/17 05: 45; Admin Dose 500 MG; Start 04/07/17 at 06:00; Stop 04/12/17 at 05:59 Amiodarone HCl (Cordarone) 200 mg DAILY PO Last administered on 04/11/17 08: 29; Admin Dose 200 MG; Start 04/07/17 at 09:00 Ondansetron HCl (Zofran Inj) 4 mg Q6H PRN IV NAUSEA AND/OR VOMITING Last administered on 04/06/17 13:10; Admin Dose 4 MG; Start 04/06/17 at 13:00 Lactobacillus Acidophilus (Florajen3 Capsule) 1 each BID PO Last administered on 04/11/17 08:30; Admin Dose 1 EACH; Start 04/06/17 at 21:00 Lactulose (Enulose) 20 gm DAILY PRN PO CONSTIPATION Last administered on 06:44; Admin Dose 20 GM; Start 04/07/17 at 10:30 Senna (Senokot) 2 tab DAILY PO Last administered on 04/10/17 09:48; Admin Dose 2 TAB; Start 04/08/17 at 09:00 Bisacodyl (Dulcolax Supp) 10 mg DAILY PRN [place] CONSTIPATION; Start 04/07/17 at 10:30 Liothyronine Sodium (Cytomel) 5 mcg DAILY PO Last administered on 04/11/17 08 :30; Admin Dose 5 MCG; Start 04/07/17 at 14:30 Diltiazem HCl (Cardizem Cd) 120 mg DAILY PO Last administered on 04/11/17 08: 30; Admin Dose 120 MG; Start 04/08/17 at 09:38 Hydrocortisone (Cortef) 5 mg QHS PO Last administered on 04/10/17 20:33; Admin Dose 5 MG; Start 04/08/17 at 21:00 Hydrocortisone (Cortef) 15 mg QAM PO Last administered on 04/11/17 08:29; Admin Dose 15 MG; Start 04/10/17 at 09:00 GOMEZ SHANNON Apr 11, 2017 09:25
--- NOTE | 2017-04-11 10:29 | CONS ---
Date/Time of Note Date/Time of Note DATE: 04/11/17 TIME: 10:27 Assessment/Plan Assessment/Plan Chief Complaint/Hosp Course 86-year-old female who had workup for tachybradycardia syndrome with paroxysmal atrial fibrillation who also had undergone pacemaker placement is now transferred to ARU for rehabilitation. 1.Sick sinus syndrome with tachy-farzad syndrome. Currently stable. -Status post pacemaker placement on 03/31/2017. -Monitor. 2.Paroxysmal AFib WITH CHADS2 score of 2 -Continue amiodarone. Due to patient's increased fall risk, she refused to be on anticoagulation with Eliquis and recommendation was to continue aspirin 325 daily for anticoagulation. 3. Panhypopituitarism-status post surgery. -Monitor electrolyte level. -Steroid therapy titration per endocrinology. 4.Hyperlipidemia -On statin. 5. Hypertension -Continue antihypertensives. 6. Urinary tract infection. Urine culture with Enterobacter cloacae 30-40,000 colonies, vancomycin-resistant Enterococcus -ID on board and received 1 dose of fosfomycin with the recommendation of 5 day oral fluoroquinolone-stop date on 04/12/2017. DVT prophylaxis: Aspirin 325. Patient with increased fall risk and refused anticoagulation with Eliquis. Continue with physical therapy/cardiac rehabilitation. Patient was seen in collaboration with . DVT prophylaxis: Aspirin 325. Patient with increased fall risk and refused anticoagulation with Eliquis. Continue with physical therapy/cardiac rehabilitation. Problems: Consultation Date/Type/Reason Admit Date/Time Apr 03, 2017 at 19:57 Type of Consultation: Cardiology Referring Provider: TONYA ENRIQUEZ NP 24 HR Interval Summary Free Text/Dictation No acute distress. Exam/Review of Systems Vital Signs Vitals Vital Signs Date Time Temp Pulse Resp B/P Pulse Ox O2 Delivery O2 Flow Rate FiO2 04/11/17 07:51 98.0 79 20 136/62 97 Room Air Intake and Output 04/10/17 04/10/17 04/11/17 15:00 23:00 07:00 Intake Total 500 ml 360 ml Balance 500 ml 360 ml Exam General: Well developed,adequately built, not in any acute distress . HEENT: Normocephalic, Atraumatic, No laceration or hematoma; Eyes: PEERL, Conjunctiva clear, Anicteric sclera Neck: Supple without any lymphadenopathy, nontender, no JVD, no carotid bruits, trachea midline, no thyromegaly Cardiac: With pacemaker to left chest wall. S1, S2 auscultated, regular rhythm and rate, no mumurs or gallop Pulmonary: Normal respiratory effort. Chest clear to auscultation bilaterally, no adventitious breath sounds GI: Abdomen obese to inspection. Soft, non tender, non- distended, no masses, no rebound tenderness or guarding. Bowel sounds active on all four quadrants Genitourinary: Deferred Extremities:+ Pedal edema/lymphedema. Pulses [2+] bilaterally. Full ROM on all four extremities. No focal weakness appreciated. Neurologic: Alert to person, place, time, and situation. Affect appropriate, intact sensation. Skin: Clean,dry, and intact. No ecchymosis, no rashes, or lesions Results Result Diagram: 04/10/17 1056 Results 24 hrs Laboratory Tests Test 04/10/17 10:56 Sodium Level 137 Potassium Level 3.6 Chloride Level 102 Carbon Dioxide Level 26 Anion Gap 13 Blood Urea Nitrogen 17 Creatinine 0.88 Glucose Level 97 # Calcium Level 8.2 L Medications Medications Current Medications Aspirin (Aspirin) 325 mg DAILY PO Last administered on 04/11/17 08:30; Admin Dose 325 MG; Start 04/04/17 at 09:00 Magnesium Hydroxide (Milk Of Mag) 30 ml DAILY PRN PO CONSTIPATION Last administered on 04/06/17 15:19; Admin Dose 30 ML; Start 04/03/17 at 22:00 Atorvastatin Calcium (Lipitor) 20 mg DAILY@21 PO Last administered on 21:00; Admin Dose 20 MG; Start 04/03/17 at 21:30; Status Future Hold Docusate Sodium (Colace) 100 mg Q12H PRN PO CONSTIPATION; Start 04/03/17 at 22 :00 Acetaminophen/ Hydrocodone Bitart ([place] (5/325)) 1 tab Q6H PRN PO PAIN Last administered on 04/11/17 08:28; Admin Dose 1 TAB; Start 04/03/17 at 22:00 Acetaminophen (Tylenol Tab) 650 mg Q6H PRN PO PAIN AND OR ELEVATED TEMP; Start 04/03/17 at 22:00 Levofloxacin (Levaquin) 500 mg DAILY@06 PO Last administered on 04/11/17 05: 45; Admin Dose 500 MG; Start 04/07/17 at 06:00; Stop 04/12/17 at 05:59 Amiodarone HCl (Cordarone) 200 mg DAILY PO Last administered on 04/11/17 08: 29; Admin Dose 200 MG; Start 04/07/17 at 09:00 Ondansetron HCl (Zofran Inj) 4 mg Q6H PRN IV NAUSEA AND/OR VOMITING Last administered on 04/06/17 13:10; Admin Dose 4 MG; Start 04/06/17 at 13:00 Lactobacillus Acidophilus (Florajen3 Capsule) 1 each BID PO Last administered on 04/11/17 08:30; Admin Dose 1 EACH; Start 04/06/17 at 21:00 Lactulose (Enulose) 20 gm DAILY PRN PO CONSTIPATION Last administered on 06:44; Admin Dose 20 GM; Start 04/07/17 at 10:30 Senna (Senokot) 2 tab DAILY PO Last administered on 04/10/17 09:48; Admin Dose 2 TAB; Start 04/08/17 at 09:00 Bisacodyl (Dulcolax Supp) 10 mg DAILY PRN [place] CONSTIPATION; Start 04/07/17 at 10:30 Liothyronine Sodium (Cytomel) 5 mcg DAILY PO Last administered on 04/11/17 08 :30; Admin Dose 5 MCG; Start 04/07/17 at 14:30 Diltiazem HCl (Cardizem Cd) 120 mg DAILY PO Last administered on 04/11/17 08: 30; Admin Dose 120 MG; Start 04/08/17 at 09:38 Hydrocortisone (Cortef) 5 mg QHS PO Last administered on 04/10/17 20:33; Admin Dose 5 MG; Start 04/08/17 at 21:00 Hydrocortisone (Cortef) 15 mg QAM PO Last administered on 04/11/17 08:29; Admin Dose 15 MG; Start 04/10/17 at 09:00 TONYA ENRIQUEZ NP Apr 11, 2017 10:29
--- NOTE | 2017-04-11 12:06 | CONS ---
Date/Time of Note Date/Time of Note DATE: 04/11/17 TIME: 12:03 Consult Date/Type/Reason Admit Date/Time Apr 03, 2017 at 19:57 Type of Consultation: Cardiology Ordering Provider: TONYA ENRIQUEZ NP Subjective Feeling better today, improved activity tolerance Objective Vital Signs Date Time Temp Pulse Resp B/P Pulse Ox O2 Delivery O2 Flow Rate FiO2 04/11/17 07:51 98.0 79 20 136/62 97 Room Air Intake and Output 04/10/17 04/10/17 04/11/17 14:59 22:59 06:59 Intake Total 500 ml 360 ml Balance 500 ml 360 ml Interdisciplinary Team Conference Bowel-continent Bladder-continent Integument-intact Physical Therapy Bed mobility-mod Transfers-mod Ambulation-mod assist 25 feet Occupational Therapy Hygiene-min mod Dressing-mod Toileting-mod Patient rosalva made steady functional gains during the course of the stay. Working towards discharge on 04/15 with home health physical therapy occupational therapy RN follow-up. Discharge equipment recommendations include front wheel walker bedside commode shower chair. Patient will follow up with primary MD upon discharge Results/Medications Result Diagram: 04/10/17 1056 Medications Current Medications Aspirin (Aspirin) 325 mg DAILY PO Last administered on 04/11/17 08:30; Admin Dose 325 MG; Start 04/04/17 at 09:00 Magnesium Hydroxide (Milk Of Mag) 30 ml DAILY PRN PO CONSTIPATION Last administered on 04/06/17 15:19; Admin Dose 30 ML; Start 04/03/17 at 22:00 Atorvastatin Calcium (Lipitor) 20 mg DAILY@21 PO Last administered on 21:00; Admin Dose 20 MG; Start 04/03/17 at 21:30; Status Future Hold Docusate Sodium (Colace) 100 mg Q12H PRN PO CONSTIPATION; Start 04/03/17 at 22 :00 Acetaminophen/ Hydrocodone Bitart ([place] (5/325)) 1 tab Q6H PRN PO PAIN Last administered on 04/11/17 08:28; Admin Dose 1 TAB; Start 04/03/17 at 22:00 Acetaminophen (Tylenol Tab) 650 mg Q6H PRN PO PAIN AND OR ELEVATED TEMP; Start 04/03/17 at 22:00 Levofloxacin (Levaquin) 500 mg DAILY@06 PO Last administered on 04/11/17 05: 45; Admin Dose 500 MG; Start 04/07/17 at 06:00; Stop 04/12/17 at 05:59 Amiodarone HCl (Cordarone) 200 mg DAILY PO Last administered on 04/11/17 08: 29; Admin Dose 200 MG; Start 04/07/17 at 09:00 Ondansetron HCl (Zofran Inj) 4 mg Q6H PRN IV NAUSEA AND/OR VOMITING Last administered on 04/06/17 13:10; Admin Dose 4 MG; Start 04/06/17 at 13:00 Lactobacillus Acidophilus (Florajen3 Capsule) 1 each BID PO Last administered on 04/11/17 08:30; Admin Dose 1 EACH; Start 04/06/17 at 21:00 Lactulose (Enulose) 20 gm DAILY PRN PO CONSTIPATION Last administered on 06:44; Admin Dose 20 GM; Start 04/07/17 at 10:30 Senna (Senokot) 2 tab DAILY PO Last administered on 04/10/17 09:48; Admin Dose 2 TAB; Start 04/08/17 at 09:00 Bisacodyl (Dulcolax Supp) 10 mg DAILY PRN [place] CONSTIPATION; Start 04/07/17 at 10:30 Liothyronine Sodium (Cytomel) 5 mcg DAILY PO Last administered on 04/11/17 08 :30; Admin Dose 5 MCG; Start 04/07/17 at 14:30 Diltiazem HCl (Cardizem Cd) 120 mg DAILY PO Last administered on 04/11/17 08: 30; Admin Dose 120 MG; Start 04/08/17 at 09:38 Hydrocortisone (Cortef) 5 mg QHS PO Last administered on 04/10/17 20:33; Admin Dose 5 MG; Start 04/08/17 at 21:00 Hydrocortisone (Cortef) 15 mg QAM PO Last administered on 04/11/17 08:29; Admin Dose 15 MG; Start 04/10/17 at 09:00 KAYLEY MCKEON MD Apr 11, 2017 12:06
[2017-04-11 20:00] VITALS: BP 135/55; PULSE 70; RESP 16
[2017-04-12 02:00] VITALS: BP 108/59; PULSE 92; RESP 16
[2017-04-12] MEDS: LEVOTHYROXINE 88 MCG TAB PO SCH (06:39)
[2017-04-12 08:30] VITALS: BP 140/65; PULSE 78; RESP 18
--- NOTE | 2017-04-12 08:44 | CONS ---
Date/Time of Note Date/Time of Note DATE: 04/12/17 TIME: 08:42 Consult Date/Type/Reason Admit Date/Time Apr 03, 2017 at 19:57 Type of Consultation: Cardiology Ordering Provider: TONYA ENRIQUEZ NP Subjective Overall improved, however reports "fish from last night's dinner did not agree with me" Objective pulm-cta min assist transfer and ambulation Vital Signs Date Time Temp Pulse Resp B/P Pulse Ox O2 Delivery O2 Flow Rate FiO2 04/12/17 02:00 97.8 92 16 108/59 96 Room Air Intake and Output 04/11/17 04/11/17 04/12/17 15:00 23:00 07:00 Intake Total 800 ml 600 ml 350 ml Output Total 900 ml Balance 800 ml 600 ml -550 ml Results/Medications Result Diagram: 04/10/17 1056 Medications Current Medications Aspirin (Aspirin) 325 mg DAILY PO Last administered on 04/11/17 08:30; Admin Dose 325 MG; Start 04/04/17 at 09:00 Magnesium Hydroxide (Milk Of Mag) 30 ml DAILY PRN PO CONSTIPATION Last administered on 04/06/17 15:19; Admin Dose 30 ML; Start 04/03/17 at 22:00 Atorvastatin Calcium (Lipitor) 20 mg DAILY@21 PO Last administered on 21:00; Admin Dose 20 MG; Start 04/03/17 at 21:30; Status Future Hold Docusate Sodium (Colace) 100 mg Q12H PRN PO CONSTIPATION; Start 04/03/17 at 22 :00 Acetaminophen/ Hydrocodone Bitart ([place] (5/325)) 1 tab Q6H PRN PO PAIN Last administered on 04/11/17 08:28; Admin Dose 1 TAB; Start 04/03/17 at 22:00 Acetaminophen (Tylenol Tab) 650 mg Q6H PRN PO PAIN AND OR ELEVATED TEMP; Start 04/03/17 at 22:00 Amiodarone HCl (Cordarone) 200 mg DAILY PO Last administered on 04/11/17 08: 29; Admin Dose 200 MG; Start 04/07/17 at 09:00 Ondansetron HCl (Zofran Inj) 4 mg Q6H PRN IV NAUSEA AND/OR VOMITING Last administered on 04/06/17 13:10; Admin Dose 4 MG; Start 04/06/17 at 13:00 Lactobacillus Acidophilus (Florajen3 Capsule) 1 each BID PO Last administered on 04/11/17 20:42; Admin Dose 1 EACH; Start 04/06/17 at 21:00 Lactulose (Enulose) 20 gm DAILY PRN PO CONSTIPATION Last administered on 06:44; Admin Dose 20 GM; Start 04/07/17 at 10:30 Senna (Senokot) 2 tab DAILY PO Last administered on 04/10/17 09:48; Admin Dose 2 TAB; Start 04/08/17 at 09:00 Bisacodyl (Dulcolax Supp) 10 mg DAILY PRN [place] CONSTIPATION; Start 04/07/17 at 10:30 Liothyronine Sodium (Cytomel) 5 mcg DAILY PO Last administered on 04/11/17 08 :30; Admin Dose 5 MCG; Start 04/07/17 at 14:30 Diltiazem HCl (Cardizem Cd) 120 mg DAILY PO Last administered on 04/11/17 08: 30; Admin Dose 120 MG; Start 04/08/17 at 09:38 Hydrocortisone (Cortef) 5 mg QHS PO Last administered on 04/11/17 20:42; Admin Dose 5 MG; Start 04/08/17 at 21:00 Hydrocortisone (Cortef) 15 mg QAM PO Last administered on 04/11/17 08:29; Admin Dose 15 MG; Start 04/10/17 at 09:00 Assessment/Plan Additional Assessment/Plan Rehab-Debility secondary to cardiac arrhythmia s/p pacemaker, hypokalemia, and multiple electrolyte abnormalities - improving Did much better with therapy yesterday, continue treatment plan Cardiac- f/b cardiology Panhypopituitarism-f/b endo Hypertension. Dyslipidemia. KAYLEY MCKEON MD Apr 12, 2017 08:44
[2017-04-12] MEDS: LIOTHYRONINE 5 MCG TAB PO SCH (09:00)
[2017-04-12] MEDS: SENNA TAB PO SCH (09:00)
--- NOTE | 2017-04-12 10:12 | PN ---
Date/Time of Note Date/Time of Note DATE: 04/12/17 TIME: 10:10 Assessment/Plan VTE Prophylaxis VTE Prophylaxis Intervention: ambulation, other (Aspirin 325. Patient refused other anticoagulations.) Lines/Catheters [facility] [place] [facility] Urinary Cath still in place: No Assessment/Plan Chief Complaint/Hosp Course 86-year-old female who had workup for tachybradycardia syndrome with paroxysmal atrial fibrillation who also had undergone pacemaker placement is now transferred to ARU for rehabilitation. 1.Sick sinus syndrome with tachy-farzad syndrome. Currently stable. -Status post pacemaker placement on 03/31/2017. -Monitor. 2.Paroxysmal AFib WITH CHADS2 score of 2 -Continue amiodarone. Due to patient's increased fall risk, she refused to be on anticoagulation with Eliquis and recommendation was to continue aspirin 325 daily for anticoagulation. 3. Panhypopituitarism-status post surgery. -Monitor electrolyte level. -Steroid therapy titration per endocrinology. 4.Hyperlipidemia -On statin. 5. Hypertension -Continue antihypertensives. 6. Urinary tract infection. -Status post treatment. DVT prophylaxis: Aspirin 325. Patient with increased fall risk and refused anticoagulation with Eliquis. Continue with physical therapy/cardiac rehabilitation. Patient was seen in collaboration with . DVT prophylaxis: Aspirin 325. Patient with increased fall risk and refused anticoagulation with Eliquis. Continue with physical therapy/cardiac rehabilitation. Problems: Subjective 24 Hr Interval Summary Free Text/Dictation No acute distress. Exam/Review of Systems Vital Signs Vitals Vital Signs Date Time Temp Pulse Resp B/P Pulse Ox O2 Delivery O2 Flow Rate FiO2 04/12/17 08:30 98.3 78 18 140/65 96 Room Air Intake and Output 04/11/17 04/11/17 04/12/17 15:00 23:00 07:00 Intake Total 800 ml 600 ml 350 ml Output Total 900 ml Balance 800 ml 600 ml -550 ml Exam General: Well developed,adequately built, not in any acute distress . HEENT: Normocephalic, Atraumatic, No laceration or hematoma; Eyes: PEERL, Conjunctiva clear, Anicteric sclera Neck: Supple without any lymphadenopathy, nontender, no JVD, no carotid bruits, trachea midline, no thyromegaly Cardiac: With pacemaker to left chest wall. S1, S2 auscultated, regular rhythm and rate, no mumurs or gallop Pulmonary: Normal respiratory effort. Chest clear to auscultation bilaterally, no adventitious breath sounds GI: Abdomen obese to inspection. Soft, non tender, non- distended, no masses, no rebound tenderness or guarding. Bowel sounds active on all four quadrants Genitourinary: Deferred Extremities:+ Pedal edema/lymphedema. Pulses [2+] bilaterally. Full ROM on all four extremities. No focal weakness appreciated. Neurologic: Alert to person, place, time, and situation. Affect appropriate, intact sensation. Skin: Clean,dry, and intact. No ecchymosis, no rashes, or lesions Results Result Diagram: 04/10/17 1056 Medications Medications Current Medications Aspirin (Aspirin) 325 mg DAILY PO Last administered on 04/11/17 08:30; Admin Dose 325 MG; Start 04/04/17 at 09:00 Magnesium Hydroxide (Milk Of Mag) 30 ml DAILY PRN PO CONSTIPATION Last administered on 04/06/17 15:19; Admin Dose 30 ML; Start 04/03/17 at 22:00 Atorvastatin Calcium (Lipitor) 20 mg DAILY@21 PO Last administered on 21:00; Admin Dose 20 MG; Start 04/03/17 at 21:30; Status Future Hold Docusate Sodium (Colace) 100 mg Q12H PRN PO CONSTIPATION; Start 04/03/17 at 22 :00 Acetaminophen/ Hydrocodone Bitart ([place] (5/325)) 1 tab Q6H PRN PO PAIN Last administered on 04/11/17 08:28; Admin Dose 1 TAB; Start 04/03/17 at 22:00 Acetaminophen (Tylenol Tab) 650 mg Q6H PRN PO PAIN AND OR ELEVATED TEMP; Start 04/03/17 at 22:00 Amiodarone HCl (Cordarone) 200 mg DAILY PO Last administered on 04/11/17 08: 29; Admin Dose 200 MG; Start 04/07/17 at 09:00 Ondansetron HCl (Zofran Inj) 4 mg Q6H PRN IV NAUSEA AND/OR VOMITING Last administered on 04/06/17 13:10; Admin Dose 4 MG; Start 04/06/17 at 13:00 Lactobacillus Acidophilus (Florajen3 Capsule) 1 each BID PO Last administered on 04/11/17 20:42; Admin Dose 1 EACH; Start 04/06/17 at 21:00 Lactulose (Enulose) 20 gm DAILY PRN PO CONSTIPATION Last administered on 06:44; Admin Dose 20 GM; Start 04/07/17 at 10:30 Senna (Senokot) 2 tab DAILY PO Last administered on 04/10/17 09:48; Admin Dose 2 TAB; Start 04/08/17 at 09:00 Bisacodyl (Dulcolax Supp) 10 mg DAILY PRN [place] CONSTIPATION; Start 04/07/17 at 10:30 Liothyronine Sodium (Cytomel) 5 mcg DAILY PO Last administered on 04/11/17 08 :30; Admin Dose 5 MCG; Start 04/07/17 at 14:30 Diltiazem HCl (Cardizem Cd) 120 mg DAILY PO Last administered on 04/11/17 08: 30; Admin Dose 120 MG; Start 04/08/17 at 09:38 Hydrocortisone (Cortef) 5 mg QHS PO Last administered on 04/11/17 20:42; Admin Dose 5 MG; Start 04/08/17 at 21:00 Hydrocortisone (Cortef) 15 mg QAM PO Last administered on 04/11/17 08:29; Admin Dose 15 MG; Start 04/10/17 at 09:00 TONYA ENRIQUEZ NP Apr 12, 2017 10:11
[2017-04-12] MEDS: DILTIAZEM (CD) 120 MG CAP PO SCH (10:20)
[2017-04-12] MEDS: ASPIRIN 325 MG TAB PO SCH (10:20)
[2017-04-12] MEDS: HYDROCORTISONE 5 MG TAB PO SCH ×2 (10:22→17:05)
[2017-04-12] MEDS: L ACIDOPHIL/B LACTIS/B LONGUM CAPSULE PO SCH ×2 (10:22→22:01)
[2017-04-12] MEDS: AMIODARONE 200 MG TAB PO SCH (10:22)
[2017-04-12 12:51] LABS: CALCIUM 7.9 mg/dl (8.4-10.2); CREATININE 0.87 mg/dl (0.44-1.00); POTASSIUM 4.1 mmol/L (3.5-5.1)
--- NOTE | 2017-04-12 16:10 | CONS ---
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 This was also discussed with her private diamond powder mixer Dr. 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 Please note this was discussed with her private diamond powder mixer Dr. Chito Chester yesterday over the telephone. He reports that he is kept her on a 30 mg a day hydrocortisone for many years. She has had no recent bone density studies per his report (4) Tachy-farzad syndrome Status: Chronic Comment: Noted and controlled using medicines and a pacemaker (5) Pacemaker Onset Date: ~ 03/31/2017 Status: Acute Comment: Noted and controlled (6) Paroxysmal atrial fibrillation with rapid ventricular response Status: Chronic Comment: Noted and controlled (7) VRE (vancomycin resistant enterococcus) culture positive Status: Acute Comment: Repeat culture is negative. Please note the patient spontaneously has just developed diarrhea. 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 Referring Provider: TONYA ENRIQUEZ NP 24 HR Interval Summary Constitutional: no complaints (Denies fevers chills or sweats) Detailed Summary Gastrointestinal: diarrhea (New onset diarrhea) Exam/Review of Systems Vital Signs Vitals Vital Signs Date Time Temp Pulse Resp B/P Pulse Ox O2 Delivery O2 Flow Rate FiO2 04/12/17 08:30 98.3 78 18 140/65 96 Room Air Intake and Output 04/11/17 04/11/17 04/12/17 15:00 23:00 07:00 Intake Total 800 ml 600 ml 350 ml Output Total 900 ml Balance 800 ml 600 ml -550 ml Exam Constitutional: alert, oriented Neck: non-tender, supple Respiratory: clear to auscultation, normal air movement Results Result Diagram: 04/12/17 1210 Results 24 hrs Laboratory Tests Test 04/12/17 12:10 Sodium Level 135 Potassium Level 4.1 Chloride Level 101 Carbon Dioxide Level 28 Anion Gap 10 Blood Urea Nitrogen 49 H Creatinine 0.87 Glucose Level 87 Calcium Level 7.9 L Medications Medications Current Medications Aspirin (Aspirin) 325 mg DAILY PO Last administered on 04/12/17 10:20; Admin Dose 325 MG; Start 04/04/17 at 09:00 Magnesium Hydroxide (Milk Of Mag) 30 ml DAILY PRN PO CONSTIPATION Last administered on 04/06/17 15:19; Admin Dose 30 ML; Start 04/03/17 at 22:00 Atorvastatin Calcium (Lipitor) 20 mg DAILY@21 PO Last administered on 21:00; Admin Dose 20 MG; Start 04/03/17 at 21:30; Status Future Hold Docusate Sodium (Colace) 100 mg Q12H PRN PO CONSTIPATION; Start 04/03/17 at 22 :00 Acetaminophen/ Hydrocodone Bitart ([place] (5/325)) 1 tab Q6H PRN PO PAIN Last administered on 04/11/17 08:28; Admin Dose 1 TAB; Start 04/03/17 at 22:00 Acetaminophen (Tylenol Tab) 650 mg Q6H PRN PO PAIN AND OR ELEVATED TEMP; Start 04/03/17 at 22:00 Amiodarone HCl (Cordarone) 200 mg DAILY PO Last administered on 04/12/17 10: 22; Admin Dose 200 MG; Start 04/07/17 at 09:00 Ondansetron HCl (Zofran Inj) 4 mg Q6H PRN IV NAUSEA AND/OR VOMITING Last administered on 04/06/17 13:10; Admin Dose 4 MG; Start 04/06/17 at 13:00 Lactobacillus Acidophilus (Florajen3 Capsule) 1 each BID PO Last administered on 04/12/17 10:22; Admin Dose 1 EACH; Start 04/06/17 at 21:00 Lactulose (Enulose) 20 gm DAILY PRN PO CONSTIPATION Last administered on 06:44; Admin Dose 20 GM; Start 04/07/17 at 10:30 Senna (Senokot) 2 tab DAILY PO Last administered on 04/10/17 09:48; Admin Dose 2 TAB; Start 04/08/17 at 09:00 Bisacodyl (Dulcolax Supp) 10 mg DAILY PRN [place] CONSTIPATION; Start 04/07/17 at 10:30 Liothyronine Sodium (Cytomel) 5 mcg DAILY PO Last administered on 04/11/17 08 :30; Admin Dose 5 MCG; Start 04/07/17 at 14:30 Diltiazem HCl (Cardizem Cd) 120 mg DAILY PO Last administered on 04/12/17 10: 20; Admin Dose 120 MG; Start 04/08/17 at 09:38 Hydrocortisone (Cortef) 5 mg QHS PO Last administered on 04/11/17 20:42; Admin Dose 5 MG; Start 04/08/17 at 21:00 Hydrocortisone (Cortef) 15 mg QAM PO Last administered on 04/12/17 10:22; Admin Dose 15 MG; Start 04/10/17 at 09:00 AMY PEARSON MD Apr 12, 2017 16:10
[2017-04-12] MEDS ORDERED: LOPERAMIDE 2 MG CAP PO ONE (17:00)
[2017-04-12 17:12] LABS: HEMATOCRIT 29.1 % (37.0-47.0); HEMOGLOBIN 9.7 g/dl (12.0-16.0)
[2017-04-12 20:00] VITALS: BP 118/52; PULSE 70; RESP 16
[2017-04-12] MEDS ORDERED: HYDROCORTISONE 5 MG TAB PO SCH (21:57)
[2017-04-12] MEDS ORDERED: HYDROCORTISONE 20 MG TAB PO SCH ×2 (21:59→22:00)
[2017-04-12] MEDS: PANTOPRAZOLE (EC) 40 MG TAB PO SCH (22:01)
[2017-04-13 02:00] VITALS: BP 96/50; PULSE 84; RESP 16
[2017-04-13] MEDS: LEVOTHYROXINE 88 MCG TAB PO SCH (06:40)
[2017-04-13] MEDS: PANTOPRAZOLE (EC) 40 MG TAB PO SCH ×2 (06:40→17:02)
[2017-04-13 06:43] LABS: BASOPHIL # 0.1 10^3/ul (0.0-0.1); BASOPHILS % 0.7 % (0.0-2.0); EOSINOPHILS # 0.5 10^3/ul (0.0-0.5); EOSINOPHILS % 3.7 % (0.0-7.0); HEMATOCRIT 29.4 % (37.0-47.0); HEMOGLOBIN 9.8 g/dl (12.0-16.0); LYMPHOCYTES # 2.1 10^3/ul (0.8-2.9); LYMPHOCYTES % 17.2 % (15.0-51.0); MEAN CORPUSCULAR HEMOGLOBIN 30.1 pg (29.0-33.0); MEAN CORPUSCULAR HGB CONC 33.3 g/dl (32.0-37.0); MEAN CORPUSCULAR VOLUME 90.2 fl (82.0-101.0); MEAN PLATELET VOLUME 9.2 fl (7.4-10.4); MONOCYTE # 0.8 10^3/ul (0.3-0.9); MONOCYTES % 6.8 % (0.0-11.0); NEUTROPHIL # 8.6 10^3/ul (1.6-7.5); PLATELET COUNT 294 10^3/UL (140-415); RED BLOOD COUNT 3.26 10^6/ul (4.20-5.40); RED CELL DISTRIBUTION WIDTH 14.4 % (11.5-14.5); WHITE BLOOD COUNT 12.3 10^3/ul (4.8-10.8)
--- NOTE | 2017-04-13 07:09 | CONS ---
Date/Time of Note Date/Time of Note DATE: 04/13/17 TIME: 07:05 Assessment/Plan Assessment/Plan Problems: (1) GI bleed Status: Acute Comment: Follow-up CBC is pending at this moment. Patient is medically hemodynamically stable and symptoms are improved. Continue with proton pump inhibitor therapy. Hold daily aspirin. 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 Chiot Chester (5) Tachy-farzad syndrome Status: Chronic Comment: Controlled with medications (6) Pacemaker Onset Date: ~ 03/31/2017 Status: Acute Comment: Preventing issues due to the tachybradycardia syndrome (7) VRE (vancomycin resistant enterococcus) culture positive Status: Resolved Comment: Resolved (8) Hyperlipidemia Status: Chronic Comment: Continue statin therapy Qualifiers: Hyperlipidemia type: pure hypercholesterolemia Qualified Code: E78.00 - Pure hypercholesterolemia Consultation Date/Type/Reason Admit Date/Time Apr 03, 2017 at 19:57 Initial Consult Date 04/06/17 Type of Consultation: Endocrinology Reason for Consultation 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 Also new onset GI bleed Referring Provider: TONYA ENRIQUEZ NP 24 HR Interval Summary Free Text/Dictation Patient reports she feels better this morning no further melena. Constitutional: no complaints (No fevers chills or sweats) Detailed Summary Respiratory: no complaints Cardiovascular: no complaints Gastrointestinal: no complaints (Symptoms of dyspepsia improved.), other (No further melena) Genitourinary: no complaints Exam/Review of Systems Vital Signs Vitals Vital Signs Date Time Temp Pulse Resp B/P Pulse Ox O2 Delivery O2 Flow Rate FiO2 04/13/17 02:00 98.0 84 16 96/50 98 Room Air Intake and Output 04/12/17 04/12/17 04/13/17 15:00 23:00 07:00 Intake Total 800 ml 300 ml Output Total 650 ml Balance 800 ml -350 ml Exam Constitutional: alert, oriented Neck: non-tender, supple Respiratory: clear to auscultation, normal air movement Cardiovascular: nl pulses, regular rate and rhythm Results Result Diagram: 04/12/17 1705 04/12/17 1210 Results 24 hrs Laboratory Tests Test 04/12/17 12:10 04/12/17 16:00 04/12/17 17:05 04/13/17 06:11 Sodium Level 135 Potassium Level 4.1 Chloride Level 101 Carbon Dioxide Level 28 Anion Gap 10 Blood Urea Nitrogen 49 H Creatinine 0.87 Glucose Level 87 Calcium Level 7.9 L Stool Occult Blood POSITIVE Hemoglobin 9.7 L Pending Hematocrit 29.1 L Pending White Blood Count Pending Red Blood Count Pending Mean Corpuscular Volume Pending Mean Corpuscular Hemoglobin Pending Mean Corpuscular Hemoglobin Concent Pending Red Cell Distribution Width Pending Platelet Count Pending Mean Platelet Volume Pending Medications Medications Current Medications Aspirin (Aspirin) 325 mg DAILY PO Last administered on 04/12/17 10:20; Admin Dose 325 MG; Start 04/04/17 at 09:00 Magnesium Hydroxide (Milk Of Mag) 30 ml DAILY PRN PO CONSTIPATION Last administered on 04/06/17 15:19; Admin Dose 30 ML; Start 04/03/17 at 22:00 Atorvastatin Calcium (Lipitor) 20 mg DAILY@21 PO Last administered on 21:00; Admin Dose 20 MG; Start 04/03/17 at 21:30; Status Future Hold Docusate Sodium (Colace) 100 mg Q12H PRN PO CONSTIPATION; Start 04/03/17 at 22 :00 Acetaminophen/ Hydrocodone Bitart ([place] (5/325)) 1 tab Q6H PRN PO PAIN Last administered on 04/11/17 08:28; Admin Dose 1 TAB; Start 04/03/17 at 22:00 Acetaminophen (Tylenol Tab) 650 mg Q6H PRN PO PAIN AND OR ELEVATED TEMP; Start 04/03/17 at 22:00 Amiodarone HCl (Cordarone) 200 mg DAILY PO Last administered on 04/12/17 10: 22; Admin Dose 200 MG; Start 04/07/17 at 09:00 Ondansetron HCl (Zofran Inj) 4 mg Q6H PRN IV NAUSEA AND/OR VOMITING Last administered on 04/06/17 13:10; Admin Dose 4 MG; Start 04/06/17 at 13:00 Lactobacillus Acidophilus (Florajen3 Capsule) 1 each BID PO Last administered on 04/12/17 22:01; Admin Dose 1 EACH; Start 04/06/17 at 21:00 Lactulose (Enulose) 20 gm DAILY PRN PO CONSTIPATION Last administered on 06:44; Admin Dose 20 GM; Start 04/07/17 at 10:30 Senna (Senokot) 2 tab DAILY PO Last administered on 04/10/17 09:48; Admin Dose 2 TAB; Start 04/08/17 at 09:00 Bisacodyl (Dulcolax Supp) 10 mg DAILY PRN [place] CONSTIPATION; Start 04/07/17 at 10:30 Liothyronine Sodium (Cytomel) 5 mcg DAILY PO Last administered on 04/11/17 08 :30; Admin Dose 5 MCG; Start 04/07/17 at 14:30 Diltiazem HCl (Cardizem Cd) 120 mg DAILY PO Last administered on 04/12/17 10: 20; Admin Dose 120 MG; Start 04/08/17 at 09:38 Hydrocortisone (Cortef) 15 mg QAM PO Last administered on 04/12/17 10:22; Admin Dose 15 MG; Start 04/10/17 at 09:00 Pantoprazole (Protonix Tab) 40 mg BID@18 PO Last administered on 04/13/17 06:40; Admin Dose 40 MG; Start 04/12/17 at 22:00 Hydrocortisone (Cortef) 5 mg QHS PO Last administered on 04/12/17 22:45; Admin Dose 5 MG; Start 04/12/17 at 21:59 AMY PEARSON MD Apr 13, 2017 07:09
[2017-04-13 07:38] LABS: ALBUMIN 2.6 g/dl (3.3-4.9); ALBUMIN/GLOBULIN RATIO 0.83; BILIRUBIN,INDIRECT 0.3 mg/dl (0-1.1); BILIRUBIN,TOTAL 0.3 mg/dl (0.2-1.3); CALCIUM 8.2 mg/dl (8.4-10.2); CREATININE 0.89 mg/dl (0.44-1.00); POTASSIUM 4.2 mmol/L (3.5-5.1); TOTAL PROTEIN 5.7 g/dl (6.1-8.1)
[2017-04-13] MEDS: SENNA TAB PO SCH (08:30)
[2017-04-13] MEDS: L ACIDOPHIL/B LACTIS/B LONGUM CAPSULE PO SCH ×2 (08:31→20:33)
[2017-04-13] MEDS: AMIODARONE 200 MG TAB PO SCH (08:31)
[2017-04-13] MEDS: LIOTHYRONINE 5 MCG TAB PO SCH (08:31)
[2017-04-13] MEDS: DILTIAZEM (CD) 120 MG CAP PO SCH (08:31)
[2017-04-13 08:40] VITALS: BP 117/47; PULSE 84; RESP 16
[2017-04-13] MEDS ORDERED: HYDROCORTISONE 20 MG TAB PO SCH (09:12)
[2017-04-13 15:37] VITALS: BP 102/38; PULSE 84; RESP 16
[2017-04-13] MEDS: HYDROCORTISONE 20 MG TAB PO SCH (17:02)
[2017-04-13 20:30] VITALS: BP 126/54; PULSE 63; RESP 17
[2017-04-13] MEDS: HYDROCORTISONE 5 MG TAB PO SCH (20:32)
[2017-04-14] MEDS: PANTOPRAZOLE (EC) 40 MG TAB PO SCH ×2 (06:52→17:13)
[2017-04-14] MEDS: LEVOTHYROXINE 88 MCG TAB PO SCH (06:52)
--- NOTE | 2017-04-14 07:40 | CONS ---
Date/Time of Note Date/Time of Note DATE: 04/14/17 TIME: 07:38 Assessment/Plan Assessment/Plan Problems: (1) History of hypophysectomy Onset Date: ~ 03/1982 Status: Chronic Comment: Noted. Because of this she does not have backup function of critical systems. 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 Her hydrocortisone was held yesterday and I was not contacted to come up with an alternative. 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 Fortunately the pharmacokinetics of levothyroxine give us a great deal of leeway (4) Tachy-farzad syndrome Status: Chronic Comment: Stable. (5) Pacemaker Onset Date: ~ 03/31/2017 Status: Acute Comment: Fully operational. (6) GI bleed Status: Acute Comment: This morning's labs are pending. Symptomatically patient is stable and doing better Qualifiers: GI bleed type/associated pathology: unspecified gastrointestinal hemorrhage type Qualified Code: K92.2 - Gastrointestinal hemorrhage, unspecified gastrointestinal hemorrhage type Consultation Date/Type/Reason Admit Date/Time Apr 03, 2017 at 19:57 Initial Consult Date 04/06/17 Type of Consultation: Endocrinology Reason for Consultation Status post transsphenoidal hypophysectomy with panhypopituitarism. Referring Provider: TONYA ENRIQUEZ NP 24 HR Interval Summary Free Text/Dictation Patient reports that her stomach feels better. She is concerned that her hydrocortisone was held yesterday by the pharmacy Constitutional: no complaints Detailed Summary Respiratory: no complaints Cardiovascular: no complaints Gastrointestinal: other (Dyspepsia improved) Exam/Review of Systems Vital Signs Vitals Vital Signs Date Time Temp Pulse Resp B/P Pulse Ox O2 Delivery O2 Flow Rate FiO2 04/13/17 20:30 98.7 63 17 126/54 99 Room Air Intake and Output 04/13/17 04/13/17 04/14/17 15:00 23:00 07:00 Intake Total 650 ml 150 ml Output Total 550 ml Balance 100 ml 150 ml Exam Constitutional: alert, oriented Neck: non-tender, supple Respiratory: clear to auscultation, normal air movement Cardiovascular: nl pulses, regular rate and rhythm Results Result Diagram: 04/13/17 0611 04/13/17 0611 Medications Medications Current Medications Aspirin (Aspirin) 325 mg DAILY PO Last administered on 04/12/17 10:20; Admin Dose 325 MG; Start 04/04/17 at 09:00; Status Future Hold Magnesium Hydroxide (Milk Of Mag) 30 ml DAILY PRN PO CONSTIPATION Last administered on 04/06/17 15:19; Admin Dose 30 ML; Start 04/03/17 at 22:00 Atorvastatin Calcium (Lipitor) 20 mg DAILY@21 PO Last administered on 21:00; Admin Dose 20 MG; Start 04/03/17 at 21:30; Status Future Hold Docusate Sodium (Colace) 100 mg Q12H PRN PO CONSTIPATION; Start 04/03/17 at 22 :00 Acetaminophen/ Hydrocodone Bitart ([place] (5/325)) 1 tab Q6H PRN PO PAIN Last administered on 04/11/17 08:28; Admin Dose 1 TAB; Start 04/03/17 at 22:00 Acetaminophen (Tylenol Tab) 650 mg Q6H PRN PO PAIN AND OR ELEVATED TEMP; Start 04/03/17 at 22:00 Amiodarone HCl (Cordarone) 200 mg DAILY PO Last administered on 04/13/17 08: 31; Admin Dose 200 MG; Start 04/07/17 at 09:00 Ondansetron HCl (Zofran Inj) 4 mg Q6H PRN IV NAUSEA AND/OR VOMITING Last administered on 04/06/17 13:10; Admin Dose 4 MG; Start 04/06/17 at 13:00 Lactobacillus Acidophilus (Florajen3 Capsule) 1 each BID PO Last administered on 04/13/17 08:31; Admin Dose 1 EACH; Start 04/06/17 at 21:00 Lactulose (Enulose) 20 gm DAILY PRN PO CONSTIPATION Last administered on 06:44; Admin Dose 20 GM; Start 04/07/17 at 10:30 Senna (Senokot) 2 tab DAILY PO Last administered on 04/10/17 09:48; Admin Dose 2 TAB; Start 04/08/17 at 09:00 Bisacodyl (Dulcolax Supp) 10 mg DAILY PRN [place] CONSTIPATION; Start 04/07/17 at 10:30 Liothyronine Sodium (Cytomel) 5 mcg DAILY PO Last administered on 04/13/17 08 :31; Admin Dose 5 MCG; Start 04/07/17 at 14:30 Diltiazem HCl (Cardizem Cd) 120 mg DAILY PO Last administered on 04/13/17 08: 31; Admin Dose 120 MG; Start 04/08/17 at 09:38 Pantoprazole (Protonix Tab) 40 mg BID@ PO Last administered on 04/14/17 06:52; Admin Dose 40 MG; Start 04/12/17 at 22:00 Hydrocortisone (Cortef) 5 mg HS PO Last administered on 04/13/17 20:32; Admin Dose 5 MG; Start 04/13/17 at 21:00 Hydrocortisone (Cortef) 15 mg QAM PO ; Start 04/14/17 at 09:00 Hydrocortisone (Solu-Cortef) 50 mg ONCE ONCE IV ; Start 04/14/17 at 08:00; Stop 04/14/17 at 08:01; Status AMY BAGLEY MD Apr 14, 2017 07:40
[2017-04-14] MEDS ORDERED: HYDROCORTISONE 100 MG INJ IV ONE (08:00)
[2017-04-14] MEDS: L ACIDOPHIL/B LACTIS/B LONGUM CAPSULE PO SCH ×2 (08:12→20:12)
[2017-04-14] MEDS: DILTIAZEM (CD) 120 MG CAP PO SCH (08:12)
[2017-04-14] MEDS: HYDROCORTISONE 5 MG TAB PO SCH ×2 (08:12→20:12)
[2017-04-14] MEDS: LIOTHYRONINE 5 MCG TAB PO SCH (08:12)
[2017-04-14] MEDS: SENNA TAB PO SCH (08:13)
[2017-04-14] MEDS: AMIODARONE 200 MG TAB PO SCH (08:13)
[2017-04-14 08:15] VITALS: BP 124/64; PULSE 64; RESP 16
[2017-04-14 08:46] LABS: BASOPHIL # 0.1 10^3/ul (0.0-0.1); BASOPHILS % 0.6 % (0.0-2.0); EOSINOPHILS # 0.5 10^3/ul (0.0-0.5); EOSINOPHILS % 4.2 % (0.0-7.0); HEMATOCRIT 29.6 % (37.0-47.0); HEMOGLOBIN 9.6 g/dl (12.0-16.0); LYMPHOCYTES # 2.2 10^3/ul (0.8-2.9); LYMPHOCYTES % 19.9 % (15.0-51.0); MEAN CORPUSCULAR HGB CONC 32.4 g/dl (32.0-37.0); MEAN CORPUSCULAR VOLUME 92.5 fl (82.0-101.0); MEAN PLATELET VOLUME 9.3 fl (7.4-10.4); MONOCYTE # 0.7 10^3/ul (0.3-0.9); MONOCYTES % 6.4 % (0.0-11.0); NEUTROPHIL # 7.5 10^3/ul (1.6-7.5); NEUTROPHILS % 67.5 % (39.0-77.0); NUCLEATED RED BLOOD CELLS% 0.2 /100WBC (0.0-0.0); PLATELET COUNT 232 10^3/UL (140-415); RED CELL DISTRIBUTION WIDTH 14.9 % (11.5-14.5); WHITE BLOOD COUNT 11.1 10^3/ul (4.8-10.8)
[2017-04-14 09:18] LABS: CALCIUM 8.1 mg/dl (8.4-10.2); CREATININE 0.76 mg/dl (0.44-1.00); POTASSIUM 3.6 mmol/L (3.5-5.1)
[2017-04-14 14:00] VITALS: BP 95/38; RESP 17
[2017-04-14] MEDS: HYDROCORTISONE 20 MG TAB PO SCH (17:13)
[2017-04-14 20:00] VITALS: BP 107/47; PULSE 61; RESP 16
[2017-04-15] MEDS: LEVOTHYROXINE 88 MCG TAB PO SCH (06:13)
[2017-04-15] MEDS: PANTOPRAZOLE (EC) 40 MG TAB PO SCH ×2 (06:13→17:22)
[2017-04-15 07:00] VITALS: BP 120/53; RESP 18
[2017-04-15] MEDS: DILTIAZEM (CD) 120 MG CAP PO SCH (08:25)
[2017-04-15] MEDS: AMIODARONE 200 MG TAB PO SCH (08:26)
[2017-04-15] MEDS: SENNA TAB PO SCH (08:26)
[2017-04-15] MEDS: LIOTHYRONINE 5 MCG TAB PO SCH (08:26)
[2017-04-15] MEDS: L ACIDOPHIL/B LACTIS/B LONGUM CAPSULE PO SCH ×2 (08:26→22:01)
--- NOTE | 2017-04-15 08:55 | CONS ---
Date/Time of Note Date/Time of Note DATE: 04/15/17 TIME: 08:53 Consult Date/Type/Reason Admit Date/Time Apr 03, 2017 at 19:57 Type of Consultation: Endocrinology Ordering Provider: TONYA ENRIQUEZ NP Subjective Patient reports that her stomach is feeling better today Objective pulm-cta abd-soft min assist ambulation Vital Signs Date Time Temp Pulse Resp B/P Pulse Ox O2 Delivery O2 Flow Rate FiO2 04/15/17 07:00 98.0 60 18 120/53 98 04/14/17 20:00 Room Air Intake and Output 04/14/17 04/14/17 04/15/17 15:00 23:00 07:00 Intake Total 450 ml 350 ml Output Total 450 ml 450 ml Balance 0 ml -100 ml Results/Medications Result Diagram: 04/14/17 0832 04/14/17 0832 Medications Current Medications Aspirin (Aspirin) 325 mg DAILY PO Last administered on 04/12/17 10:20; Admin Dose 325 MG; Start 04/04/17 at 09:00; Status Future Hold Magnesium Hydroxide (Milk Of Mag) 30 ml DAILY PRN PO CONSTIPATION Last administered on 04/06/17 15:19; Admin Dose 30 ML; Start 04/03/17 at 22:00 Atorvastatin Calcium (Lipitor) 20 mg DAILY@21 PO Last administered on 21:00; Admin Dose 20 MG; Start 04/03/17 at 21:30; Status Future Hold Docusate Sodium (Colace) 100 mg Q12H PRN PO CONSTIPATION; Start 04/03/17 at 22 :00 Acetaminophen/ Hydrocodone Bitart ([place] (5/325)) 1 tab Q6H PRN PO PAIN Last administered on 04/11/17 08:28; Admin Dose 1 TAB; Start 04/03/17 at 22:00 Acetaminophen (Tylenol Tab) 650 mg Q6H PRN PO PAIN AND OR ELEVATED TEMP; Start 04/03/17 at 22:00 Amiodarone HCl (Cordarone) 200 mg DAILY PO Last administered on 04/15/17 08: 26; Admin Dose 200 MG; Start 04/07/17 at 09:00 Ondansetron HCl (Zofran Inj) 4 mg Q6H PRN IV NAUSEA AND/OR VOMITING Last administered on 04/06/17 13:10; Admin Dose 4 MG; Start 04/06/17 at 13:00 Lactobacillus Acidophilus (Florajen3 Capsule) 1 each BID PO Last administered on 04/15/17 08:26; Admin Dose 1 EACH; Start 04/06/17 at 21:00 Lactulose (Enulose) 20 gm DAILY PRN PO CONSTIPATION Last administered on 06:44; Admin Dose 20 GM; Start 04/07/17 at 10:30 Senna (Senokot) 2 tab DAILY PO Last administered on 04/15/17 08:26; Admin Dose 2 TAB; Start 04/08/17 at 09:00 Bisacodyl (Dulcolax Supp) 10 mg DAILY PRN [place] CONSTIPATION; Start 04/07/17 at 10:30 Liothyronine Sodium (Cytomel) 5 mcg DAILY PO Last administered on 04/15/17 08 :26; Admin Dose 5 MCG; Start 04/07/17 at 14:30 Diltiazem HCl (Cardizem Cd) 120 mg DAILY PO Last administered on 04/15/17 08: 25; Admin Dose 120 MG; Start 04/08/17 at 09:38 Pantoprazole (Protonix Tab) 40 mg BID@18 PO Last administered on 04/15/17 06:13; Admin Dose 40 MG; Start 04/12/17 at 22:00 Hydrocortisone (Cortef) 5 mg HS PO Last administered on 04/14/17 20:12; Admin Dose 5 MG; Start 04/13/17 at 21:00 Hydrocortisone (Cortef) 15 mg QAM PO Last administered on 04/14/17 08:12; Admin Dose 15 MG; Start 04/14/17 at 09:00 Assessment/Plan Additional Assessment/Plan Rehab-Debility secondary to cardiac arrhythmia s/p pacemaker, hypokalemia, and multiple electrolyte abnormalities - improving Patient has improved. She is anxious to return home GI-s/p GIB. Monitor H/H Cardiac- f/b cardiology Panhypopituitarism-f/b endo Hypertension. Dyslipidemia. KAYLEY MCKEON MD Apr 15, 2017 08:55
[2017-04-15] MEDS: HYDROCORTISONE 5 MG TAB PO SCH ×2 (09:37→22:02)
--- NOTE | 2017-04-15 09:49 | CONS ---
Date/Time of Note Date/Time of Note DATE: 04/15/17 TIME: 09:47 Assessment/Plan Assessment/Plan Chief Complaint/Hosp Course 86-year-old female who had workup for tachybradycardia syndrome with paroxysmal atrial fibrillation who also had undergone pacemaker placement is now transferred to ARU for rehabilitation. 1.Sick sinus syndrome with tachy-farzad syndrome. Currently stable. -Status post pacemaker placement on 03/31/2017. -Monitor. 2.Paroxysmal AFib WITH CHADS2 score of 2 -Continue amiodarone. Due to patient's increased fall risk, she refused to be on anticoagulation with Eliquis and recommendation was to continue aspirin 325 daily for anticoagulation. 3. Panhypopituitarism-status post surgery. -Monitor electrolyte level. -Steroid therapy titration per endocrinology. 4.Hyperlipidemia -On statin. 5. Hypertension -Continue antihypertensives. 6. Urinary tract infection. -Status post treatment. 7. Positive stool OB. Needs to rule out GI bleed. Status: Acute. Remarks: No bleeding reported per patient. -I have recommended inpatient GI evaluation for EGD/colonoscopy. After long discussion with patient, she opted for outpatient gastroenterology evaluation and EGD/colonoscopy screening. At this time, her hemoglobin remained stable and patient does not report any melena, hematochezia, hematemesis or other GI symptoms, it is not unreasonable to have EGD/colonoscopy as outpatient which patient opted for. DVT prophylaxis: Aspirin 325. Patient with increased fall risk and refused anticoagulation with Eliquis. Continue with physical therapy/cardiac rehabilitation. Patient was seen in collaboration with . DVT prophylaxis: Aspirin 325. Patient with increased fall risk and refused anticoagulation with Eliquis. Continue with physical therapy/cardiac rehabilitation. Problems: Consultation Date/Type/Reason Admit Date/Time Apr 03, 2017 at 19:57 Type of Consultation: Endocrinology Referring Provider: TONYA ENRIQUEZ NP 24 HR Interval Summary Free Text/Dictation No acute distress. Denies melena, hematochezia, hematemesis, or any abdominal discomfort. Exam/Review of Systems Vital Signs Vitals Vital Signs Date Time Temp Pulse Resp B/P Pulse Ox O2 Delivery O2 Flow Rate FiO2 04/15/17 07:00 98.0 60 18 120/53 98 04/14/17 20:00 Room Air Intake and Output 04/14/17 04/14/17 04/15/17 15:00 23:00 07:00 Intake Total 450 ml 350 ml Output Total 450 ml 450 ml Balance 0 ml -100 ml Exam General: Well developed,adequately built, not in any acute distress . HEENT: Normocephalic, Atraumatic, No laceration or hematoma; Eyes: PEERL, Conjunctiva clear, Anicteric sclera Neck: Supple without any lymphadenopathy, nontender, no JVD, no carotid bruits, trachea midline, no thyromegaly Cardiac: With pacemaker to left chest wall. S1, S2 auscultated, regular rhythm and rate, no mumurs or gallop Pulmonary: Normal respiratory effort. Chest clear to auscultation bilaterally, no adventitious breath sounds GI: Abdomen obese to inspection. Soft, non tender, non- distended, no masses, no rebound tenderness or guarding. Bowel sounds active on all four quadrants Genitourinary: Deferred Extremities:+ Pedal edema/lymphedema. Pulses [2+] bilaterally. Full ROM on all four extremities. No focal weakness appreciated. Neurologic: Alert to person, place, time, and situation. Affect appropriate, intact sensation. Skin: Clean,dry, and intact. No ecchymosis, no rashes, or lesions Results Result Diagram: 04/14/1732 04/14/17 0832 Medications Medications Current Medications Aspirin (Aspirin) 325 mg DAILY PO Last administered on 04/12/17 10:20; Admin Dose 325 MG; Start 04/04/17 at 09:00; Status Future Hold Magnesium Hydroxide (Milk Of Mag) 30 ml DAILY PRN PO CONSTIPATION Last administered on 04/06/17 15:19; Admin Dose 30 ML; Start 04/03/17 at 22:00 Atorvastatin Calcium (Lipitor) 20 mg DAILY@21 PO Last administered on 21:00; Admin Dose 20 MG; Start 04/03/17 at 21:30; Status Future Hold Docusate Sodium (Colace) 100 mg Q12H PRN PO CONSTIPATION; Start 04/03/17 at 22 :00 Acetaminophen/ Hydrocodone Bitart ([place] (5/325)) 1 tab Q6H PRN PO PAIN Last administered on 04/11/17 08:28; Admin Dose 1 TAB; Start 04/03/17 at 22:00 Acetaminophen (Tylenol Tab) 650 mg Q6H PRN PO PAIN AND OR ELEVATED TEMP; Start 04/03/17 at 22:00 Amiodarone HCl (Cordarone) 200 mg DAILY PO Last administered on 04/15/17 08: 26; Admin Dose 200 MG; Start 04/07/17 at 09:00 Ondansetron HCl (Zofran Inj) 4 mg Q6H PRN IV NAUSEA AND/OR VOMITING Last administered on 04/06/17 13:10; Admin Dose 4 MG; Start 04/06/17 at 13:00 Lactobacillus Acidophilus (Florajen3 Capsule) 1 each BID PO Last administered on 04/15/17 08:26; Admin Dose 1 EACH; Start 04/06/17 at 21:00 Lactulose (Enulose) 20 gm DAILY PRN PO CONSTIPATION Last administered on 06:44; Admin Dose 20 GM; Start 04/07/17 at 10:30 Senna (Senokot) 2 tab DAILY PO Last administered on 04/15/17 08:26; Admin Dose 2 TAB; Start 04/08/17 at 09:00 Bisacodyl (Dulcolax Supp) 10 mg DAILY PRN [place] CONSTIPATION; Start 04/07/17 at 10:30 Liothyronine Sodium (Cytomel) 5 mcg DAILY PO Last administered on 04/15/17 08 :26; Admin Dose 5 MCG; Start 04/07/17 at 14:30 Diltiazem HCl (Cardizem Cd) 120 mg DAILY PO Last administered on 04/15/17 08: 25; Admin Dose 120 MG; Start 04/08/17 at 09:38 Pantoprazole (Protonix Tab) 40 mg BID@,18 PO Last administered on 04/15/17 06:13; Admin Dose 40 MG; Start 04/12/17 at 22:00 Hydrocortisone (Cortef) 5 mg HS PO Last administered on 04/14/17 20:12; Admin Dose 5 MG; Start 04/13/17 at 21:00 Hydrocortisone (Cortef) 15 mg QAM PO Last administered on 04/15/17 09:37; Admin Dose 15 MG; Start 04/14/17 at 09:00 TONYA ENRIQUEZ NP Apr 15, 2017 09:48
--- NOTE | 2017-04-15 10:24 | CONS ---
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 Should be prepared to increase doses if pt. becomes ill. Should change immediately to IV if for any reason pt. made NPO. Recheck chemistries and blood counts to monitor adequacy of dosing. 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 T4/T3 replacement daily Consultation Date/Type/Reason Admit Date/Time Apr 03, 2017 at 19:57 Initial Consult Date 04/06/17 Type of Consultation: Endocrinology Reason for Consultation Panhypopituitarism Referring Provider: TONYA ENRIQUEZ NP 24 HR Interval Summary Constitutional: improved, no complaints Detailed Summary Respiratory: no complaints Cardiovascular: no complaints Gastrointestinal: diarrhea (attributes to fish she ate 2 days ago, now resolved ), pain (attributes to fish she ate 2 days ago, now resolved) Genitourinary: no complaints Musculoskeletal: no complaints Neurologic: no complaints Exam/Review of Systems Vital Signs Vitals VS - Last 72 Hours, by Label Date Time Temp Pulse Resp B/P Pulse Ox O2 Delivery O2 Flow Rate FiO2 04/15/17 07:00 98.0 60 18 120/53 98 04/14/17 20:00 98.1 61 16 107/47 96 Room Air 04/14/17 14:00 98.0 66 17 95/38 96 04/14/17 08:15 98.0 64 16 124/64 96 Room Air 04/13/17 20:30 98.7 63 17 126/54 99 Room Air 04/13/17 15:37 98.0 84 16 102/38 96 Room Air 04/13/17 08:40 97.3 84 16 117/47 96 Room Air 04/13/17 02:00 98.0 84 16 96/50 98 Room Air 04/12/17 20:00 97.7 70 16 118/52 97 Room Air Vital Signs Date Time Temp Pulse Resp B/P Pulse Ox O2 Delivery O2 Flow Rate FiO2 04/15/17 07:00 98.0 60 18 120/53 98 04/14/17 20:00 Room Air Intake and Output 04/14/17 04/14/17 04/15/17 15:00 23:00 07:00 Intake Total 450 ml 350 ml Output Total 450 ml 450 ml Balance 0 ml -100 ml Exam Constitutional: alert, obese, oriented Psych: nl mood/affect, no complaints Respiratory: clear to auscultation, normal air movement Cardiovascular: nl pulses, regular rate and rhythm, No edema, No murmurs/extra sounds, No rub Gastrointestinal: bowel sounds, nl liver, spleen, non-tender, soft, No mass, No rebound or guarding Musculoskeletal: nl extremities to inspection Extremities: normal pulses, No clubbing, No cyanosis, No edema Neurological: AIRLINE RESERVATION AGENT II-XII intact, nl mental status, nl speech, nl strength Results Result Diagram: 04/14/1732 04/14/17 08 Medications Medications Current Medications Aspirin (Aspirin) 325 mg DAILY PO Last administered on 04/12/17 10:20; Admin Dose 325 MG; Start 04/04/17 at 09:00; Status Future Hold Magnesium Hydroxide (Milk Of Mag) 30 ml DAILY PRN PO CONSTIPATION Last administered on 04/06/17 15:19; Admin Dose 30 ML; Start 04/03/17 at 22:00 Atorvastatin Calcium (Lipitor) 20 mg DAILY@21 PO Last administered on 21:00; Admin Dose 20 MG; Start 04/03/17 at 21:30; Status Future Hold Docusate Sodium (Colace) 100 mg Q12H PRN PO CONSTIPATION; Start 04/03/17 at 22 :00 Acetaminophen/ Hydrocodone Bitart ([place] (5/325)) 1 tab Q6H PRN PO PAIN Last administered on 04/11/17 08:28; Admin Dose 1 TAB; Start 04/03/17 at 22:00 Acetaminophen (Tylenol Tab) 650 mg Q6H PRN PO PAIN AND OR ELEVATED TEMP; Start 04/03/17 at 22:00 Amiodarone HCl (Cordarone) 200 mg DAILY PO Last administered on 04/15/17 08: 26; Admin Dose 200 MG; Start 04/07/17 at 09:00 Ondansetron HCl (Zofran Inj) 4 mg Q6H PRN IV NAUSEA AND/OR VOMITING Last administered on 04/06/17 13:10; Admin Dose 4 MG; Start 04/06/17 at 13:00 Lactobacillus Acidophilus (Florajen3 Capsule) 1 each BID PO Last administered on 04/15/17 08:26; Admin Dose 1 EACH; Start 04/06/17 at 21:00 Lactulose (Enulose) 20 gm DAILY PRN PO CONSTIPATION Last administered on 06:44; Admin Dose 20 GM; Start 04/07/17 at 10:30 Senna (Senokot) 2 tab DAILY PO Last administered on 04/15/17 08:26; Admin Dose 2 TAB; Start 04/08/17 at 09:00 Bisacodyl (Dulcolax Supp) 10 mg DAILY PRN [place] CONSTIPATION; Start 04/07/17 at 10:30 Liothyronine Sodium (Cytomel) 5 mcg DAILY PO Last administered on 04/15/17 08 :26; Admin Dose 5 MCG; Start 04/07/17 at 14:30 Diltiazem HCl (Cardizem Cd) 120 mg DAILY PO Last administered on 04/15/17 08: 25; Admin Dose 120 MG; Start 04/08/17 at 09:38 Pantoprazole (Protonix Tab) 40 mg BID@ PO Last administered on 04/15/17 06:13; Admin Dose 40 MG; Start 04/12/17 at 22:00 Hydrocortisone (Cortef) 5 mg HS PO Last administered on 04/14/17 20:12; Admin Dose 5 MG; Start 04/13/17 at 21:00 Hydrocortisone (Cortef) 15 mg QAM PO Last administered on 04/15/17 09:37; Admin Dose 15 MG; Start 04/14/17 at 09:00 MAXINE STRICKLAND MD Apr 15, 2017 10:23
[2017-04-15 14:00] VITALS: BP 116/41; RESP 18
[2017-04-15] MEDS: HYDROCORTISONE 20 MG TAB PO SCH (17:22)
[2017-04-15 20:00] VITALS: BP 107/62; RESP 18
[2017-04-16 02:00] VITALS: BP 122/58; RESP 18
[2017-04-16] MEDS: PANTOPRAZOLE (EC) 40 MG TAB PO SCH (06:37)
[2017-04-16] MEDS: LEVOTHYROXINE 88 MCG TAB PO SCH (06:37)
[2017-04-16 07:04] LABS: BASOPHILS % 0.5 % (0.0-2.0); EOSINOPHILS # 0.3 10^3/ul (0.0-0.5); EOSINOPHILS % 3.2 % (0.0-7.0); HEMATOCRIT 27.6 % (37.0-47.0); HEMOGLOBIN 8.9 g/dl (12.0-16.0); LYMPHOCYTES # 1.4 10^3/ul (0.8-2.9); LYMPHOCYTES % 16.2 % (15.0-51.0); MEAN CORPUSCULAR HEMOGLOBIN 30.1 pg (29.0-33.0); MEAN CORPUSCULAR HGB CONC 32.2 g/dl (32.0-37.0); MEAN CORPUSCULAR VOLUME 93.2 fl (82.0-101.0); MEAN PLATELET VOLUME 9.3 fl (7.4-10.4); MONOCYTE # 0.6 10^3/ul (0.3-0.9); MONOCYTES % 7.5 % (0.0-11.0); NEUTROPHILS % 71.3 % (39.0-77.0); NUCLEATED RED BLOOD CELLS% 0.2 /100WBC (0.0-0.0); PLATELET COUNT 253 10^3/UL (140-415); RED BLOOD COUNT 2.96 10^6/ul (4.20-5.40); RED CELL DISTRIBUTION WIDTH 15.3 % (11.5-14.5); WHITE BLOOD COUNT 8.4 10^3/ul (4.8-10.8)
[2017-04-16 07:30] VITALS: BP 131/48; RESP 18
[2017-04-16 07:45] LABS: CALCIUM 8.2 mg/dl (8.4-10.2); CREATININE 0.99 mg/dl (0.44-1.00); POTASSIUM 4.1 mmol/L (3.5-5.1)
[2017-04-16] MEDS: DILTIAZEM (CD) 120 MG CAP PO SCH (08:18)
[2017-04-16] MEDS: L ACIDOPHIL/B LACTIS/B LONGUM CAPSULE PO SCH (08:18)
[2017-04-16] MEDS: HYDROCORTISONE 5 MG TAB PO SCH (08:18)
[2017-04-16] MEDS: LIOTHYRONINE 5 MCG TAB PO SCH (08:18)
[2017-04-16] MEDS: AMIODARONE 200 MG TAB PO SCH (08:20)
[2017-04-16] MEDS: SENNA TAB PO SCH (08:24)
--- NOTE | 2017-04-16 10:55 | DS ---
Date/Time of Note Date/Time of Note DATE: 04/16/17 TIME: 10:53 Discharge Summary Admission/Discharge Info Admit Date/Time Apr 03, 2017 at 19:57 Discharge Date/Time Discharge Diagnosis 1. Debility, IMPROVED 2. 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 3. Hypertension. 4. Dyslipidemia. 5. Improvements in self-care and mobility. Patient Condition: Good Hospital Course Patient was admitted for comprehensive interdisciplinary acute rehabilitation. Patient made steady functional gains and improved from a mod level to a SBA level for self care and mobility, including ambulating over 150 feet with the use of a front wheeled walker. Patient did have episodes of hypotension, and was followed closely by cardiology, IM and endo. Patient required close following by endo for her panhypo pit. Her hospital course course was also notable for episode of GIB, which improved. Patient is being discharged home with recommendations for home health PT and OT follow up. DME recommendations: FWW; [facility]; Shower Chair Patient will follow up with PMD and Endo and Cardiology upon DC. Home Meds Reported Medications Losartan-Hydrochlorothiazide (Losartan-HCTZ) 100-25 Mg Tab, 1 TAB PO DAILY, TAB 03/27/17 Atorvastatin Calcium* (Atorvastatin Calcium*) 20 Mg Tablet, 20 MG PO QHS, #30 TAB 03/27/17 Pantoprazole* (Pantoprazole*) 40 Mg Tablet.dr, 40 MG PO AC BREAKFAST, TAB 03/27/17 Levothyroxine Sodium* (Levothyroxine Sodium*) 100 Mcg Tablet, 100 MCG PO BEFORE BREAKFAST, #30 TAB 03/27/17 Hydrocortisone* (Cortef*) 20 Mg Tablet, 20 MG PO QAM, #60 TAB 03/27/17 Metoprolol Tartrate* (Lopressor*) 50 Mg Tab, 50 MG PO BID, #60 TAB 03/27/17 Primary Care Provider Not On Staff Doctor Pending Labs Laboratory Tests Test 04/16/17 06:26 White Blood Count 8.410^3/ul (4.8-10.8) Red Blood Count 2.9610^6/ul (4.20-5.40) Hemoglobin 8.9g/dl (12.0-16.0) Hematocrit 27.6% (37.0-47.0) Mean Corpuscular Volume 93.2fl (82.0-101.0) Mean Corpuscular Hemoglobin 30.1pg (29.0-33.0) Mean Corpuscular Hemoglobin Concent 32.2g/dl (32.0-37.0) Red Cell Distribution Width 15.3% (11.5-14.5) Platelet Count 20093^3/UL (140-415) Mean Platelet Volume 9.3fl (7.4-10.4) Neutrophils % 71.3% (39.0-77.0) Lymphocytes % 16.2% (15.0-51.0) Monocytes % 7.5% (0.0-11.0) Eosinophils % 3.2% (0.0-7.0) Basophils % 0.5% (0.0-2.0) Nucleated Red Blood Cells % 0.2/100WBC (0.0-0.0) Neutrophils # 6.010^3/ul (1.6-7.5) Lymphocytes # 1.410^3/ul (0.8-2.9) Monocytes # 0.610^3/ul (0.3-0.9) Eosinophils # 0.310^3/ul (0.0-0.5) Basophils # 0.010^3/ul (0.0-0.1) Nucleated Red Blood Cells # 0.010^3/ul (0.0-0.0) Sodium Level 140mmol/L (135-144) Potassium Level 4.1mmol/L (3.5-5.1) Chloride Level 105mmol/L (97-110) Carbon Dioxide Level 31mmol/L (21-31) Anion Gap 8 (8-16) Blood Urea Nitrogen 27mg/dl (7-20) Creatinine 0.99mg/dl (0.44-1.00) Glucose Level 79mg/dl (70-220) Calcium Level 8.2mg/dl (8.4-10.2) KAYLEY MCKEON MD Apr 16, 2017 10:55
--- NOTE | 2017-04-16 13:14 | CONS ---
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 Chito Chester (4) Tachy-farzad syndrome Status: Chronic Comment: Stable and controlled with medications and pacemaker (5) Pacemaker Onset Date: ~ 03/31/2017 Status: Acute Comment: Fully operational (6) Paroxysmal atrial fibrillation with rapid ventricular response Status: Chronic Comment: Controlled with medications (7) Hyperlipidemia Status: Chronic Comment: Stable on treatment Qualifiers: Hyperlipidemia type: pure hypercholesterolemia Qualified Code: E78.00 - Pure hypercholesterolemia (8) GI bleed Status: Acute Comment: Stable hemoglobin and hematocrit. I would advocate for 2 month course of PPI therapy Qualifiers: GI bleed type/associated pathology: unspecified gastrointestinal hemorrhage type Qualified Code: K92.2 - Gastrointestinal hemorrhage, unspecified gastrointestinal hemorrhage type Consultation Date/Type/Reason Admit Date/Time Apr 03, 2017 at 19:57 Initial Consult Date 04/06/17 Type of Consultation: Endocrinology Reason for Consultation Status post transsphenoidal hypophysectomy with panhypopituitarism Referring Provider: TONYA ENRIQUEZ NP 24 HR Interval Summary Free Text/Dictation Patient reports she is doing well with a negative endocrine review of systems Exam/Review of Systems Vital Signs Vitals Vital Signs Date Time Temp Pulse Resp B/P Pulse Ox O2 Delivery O2 Flow Rate FiO2 04/16/17 07:30 98.2 62 18 131/48 97 04/14/17 20:00 Room Air Intake and Output 04/15/17 04/15/17 04/16/17 15:00 23:00 07:00 Intake Total 200 ml 1450 ml 1050 ml Output Total 550 ml 1550 ml Balance -350 ml -100 ml 1050 ml Results No change versus prior Result Diagram: 04/16/1762504/16/17625 Results 24 hrs Laboratory Tests Test 04/16/17 06:26 White Blood Count 8.4 # Red Blood Count 2.96 L Hemoglobin 8.9 L Hematocrit 27.6 L Mean Corpuscular Volume 93.2 Mean Corpuscular Hemoglobin 30.1 Mean Corpuscular Hemoglobin Concent 32.2 Red Cell Distribution Width 15.3 H Platelet Count 253 Mean Platelet Volume 9.3 Neutrophils % 71.3 Lymphocytes % 16.2 Monocytes % 7.5 Eosinophils % 3.2 Basophils % 0.5 Nucleated Red Blood Cells % 0.2 H Neutrophils # 6.0 Lymphocytes # 1.4 Monocytes # 0.6 Eosinophils # 0.3 Basophils # 0.0 Nucleated Red Blood Cells # 0.0 Sodium Level 140 Potassium Level 4.1 Chloride Level 105 Carbon Dioxide Level 31 Anion Gap 8 Blood Urea Nitrogen 27 H Creatinine 0.99 Glucose Level 79 Calcium Level 8.2 L Medications Medications Current Medications Aspirin (Aspirin) 325 mg DAILY PO Last administered on 04/12/17 10:20; Admin Dose 325 MG; Start 04/04/17 at 09:00; Status Future Hold Magnesium Hydroxide (Milk Of Mag) 30 ml DAILY PRN PO CONSTIPATION Last administered on 04/06/17 15:19; Admin Dose 30 ML; Start 04/03/17 at 22:00 Atorvastatin Calcium (Lipitor) 20 mg DAILY@21 PO Last administered on 21:00; Admin Dose 20 MG; Start 04/03/17 at 21:30; Status Future Hold Docusate Sodium (Colace) 100 mg Q12H PRN PO CONSTIPATION; Start 04/03/17 at 22 :00 Acetaminophen/ Hydrocodone Bitart ([place] (5/325)) 1 tab Q6H PRN PO PAIN Last administered on 04/11/17 08:28; Admin Dose 1 TAB; Start 04/03/17 at 22:00 Acetaminophen (Tylenol Tab) 650 mg Q6H PRN PO PAIN AND OR ELEVATED TEMP; Start 04/03/17 at 22:00 Amiodarone HCl (Cordarone) 200 mg DAILY PO Last administered on 04/16/17 08: 20; Admin Dose 200 MG; Start 04/07/17 at 09:00 Ondansetron HCl (Zofran Inj) 4 mg Q6H PRN IV NAUSEA AND/OR VOMITING Last administered on 04/06/17 13:10; Admin Dose 4 MG; Start 04/06/17 at 13:00 Lactobacillus Acidophilus (Florajen3 Capsule) 1 each BID PO Last administered on 04/16/17 08:18; Admin Dose 1 EACH; Start 04/06/17 at 21:00 Lactulose (Enulose) 20 gm DAILY PRN PO CONSTIPATION Last administered on 06:44; Admin Dose 20 GM; Start 04/07/17 at 10:30 Senna (Senokot) 2 tab DAILY PO Last administered on 04/15/17 08:26; Admin Dose 2 TAB; Start 04/08/17 at 09:00 Bisacodyl (Dulcolax Supp) 10 mg DAILY PRN ND CONSTIPATION; Start 04/07/17 at 10:30 Liothyronine Sodium (Cytomel) 5 mcg DAILY PO Last administered on 04/16/17 08 :18; Admin Dose 5 MCG; Start 04/07/17 at 14:30 Diltiazem HCl (Cardizem Cd) 120 mg DAILY PO Last administered on 04/16/17 08: 18; Admin Dose 120 MG; Start 04/08/17 at 09:38 Pantoprazole (Protonix Tab) 40 mg BID@18 PO Last administered on 04/16/17 06:37; Admin Dose 40 MG; Start 04/12/17 at 22:00 Hydrocortisone (Cortef) 5 mg HS PO Last administered on 04/15/17 22:02; Admin Dose 5 MG; Start 04/13/17 at 21:00 Hydrocortisone (Cortef) 15 mg QAM PO Last administered on 04/16/17 08:18; Admin Dose 15 MG; Start 04/14/17 at 09:00 AMY PEARSON MD Apr 16, 2017 13:14
== END 2017-04-16 13:30 | disposition home health service (06) | DRG 949 ==
LOC: VRC 19:57
PROVIDERS: ADMIT Physical Medicine & Rehabilitation; ATTEND Internal Medicine Pulmonary Disease
PROC: F08Z1ZZ Dressing Techniques Treatment (ICD-10-PCS; principal; 2017-04-03)
PROC: F08Z0ZZ Bathing/Showering Techniques Treatment (ICD-10-PCS; 2017-04-03)
PROC: F08Z2ZZ Grooming/Personal Hygiene Treatment (ICD-10-PCS; 2017-04-03)
PROC: F07Z5ZZ Bed Mobility Treatment (ICD-10-PCS; 2017-04-03)
PROC: F07Z8ZZ Transfer Training Treatment (ICD-10-PCS; 2017-04-03)
PROC: F07Z9ZZ Gait Training/Functional Ambulation Treatment (ICD-10-PCS; 2017-04-03)
PROC: F07Z4ZZ Wheelchair Mobility Treatment (ICD-10-PCS; 2017-04-03)
DX: Z48.812 Encounter for surgical aftercare following surgery on the circulatory system (principal); E23.0 Hypopituitarism; N39.0 Urinary tract infection, site not specified; K92.2 Gastrointestinal hemorrhage, unspecified; I48.0 Paroxysmal atrial fibrillation; Z95.0 Presence of cardiac pacemaker; I10 Essential (primary) hypertension; R60.9 Edema, unspecified; E03.9 Hypothyroidism, unspecified; D35.2 Benign neoplasm of pituitary gland; E87.6 Hypokalemia; I95.1 Orthostatic hypotension; B95.2 Enterococcus as the cause of diseases classified elsewhere; Z16.21 Resistance to vancomycin; I25.10 Atherosclerotic heart disease of native coronary artery without angina pectoris; E78.00 Pure hypercholesterolemia, unspecified
CPT/HCPCS: 80048; 80053; 81001; 82270; 84439; 84443; 84481; 85014; 85018; 85025; 86803; 87075; 87081; 87086; 87340; 93005; 93970; 94640; 94664; 97110; 97112; 97116; 97163; 97167; 97530; 97535; 97542; J0696; J1720; J2405; J7040; L3675

== ENCOUNTER 2017-05-11 11:41 | Inpatient (IN) | END 2017-05-13 18:45 | disposition home or self-care (01) | DRG 309 ==